=== PATIENT | male | born 1955 | race Caucasian/White ===

== ENCOUNTER → 2017-09-03 | Day surgery (SDC) | payer BC ==
[2017-08-30 14:23] VITALS: BMI 26.6
[~2017-09-03] MED LIST: LACTATED RINGERS 1,000 ML IV SCH; LIDOCAINE 1% 20 ML VIAL (10MG/ML) FOR IV START INTRADERMA PRN; LIDOCAINE 1% INJ 10MG/ML (20 ML MDV) ONE; PROPOFOL 10 MG/ML 20 ML VIAL IV ONE
[2017-09-03 11:24] VITALS: TEMP 98.2
--- NOTE | 2017-09-03 12:29 | P.GSHP ---
History of Present Illness H&P Date: 09/03/17 Chief Complaint: Screening colonoscopy This a 62-year-old male referred from Dr. Beltran. Patient presents today for screening colonoscopy. Past Medical History Past Medical History: Skin Disorder Additional Past Medical History / Comment(s): WOUND LEFT ACHILLES TENDON. (HX OF PICC LINE WITH ANTIBIOTICS)-healed History of Any Multi-Drug Resistant Organisms: None Reported Past Surgical History: Joint Replacement, Orthopedic Surgery Additional Past Surgical History / Comment(s): achilles tendon repair 09/05/2013 , right knee replacement apr 2012, right wrist--excess bone removed 5 years ago , RT ROTATOR CUFF REPAIR APR 2014. Past Anesthesia/Blood Transfusion Reactions: No Reported Reaction Smoking Status: Never smoker - Past Family History Mother Family Medical History: Diabetes Mellitus Father Family Medical History: No Reported History Additional Family Medical History / Comment(s): PARKINSONS Medications and Allergies Home Medications Medication Instructions Recorded Confirmed Type No Known Home Medications [No 08/30/17 08/30/17 History Known Home Medications] Allergies Allergy/AdvReac Type Severity Reaction Status Date / Time No Known Allergies Allergy Verified 08/30/17 14:19 Surgical - Exam Vital Signs Temp Pulse Resp BP Pulse Ox 98.2 F 55 L 16 168/102 98 09/03/17 11:22 09/03/17 11:22 09/03/17 11:22 09/03/17 11:22 09/03/17 11:22 - General well developed, no distress - Eyes PERRL - ENT normal pinna - Neck no masses - Respiratory normal expansion - Cardiovascular Rhythm: regular - Abdomen Abdomen: soft, non tender Assessment and Plan Assessment: We'll perform screening colonoscopy.
--- NOTE | 2017-09-03 12:43 | P.OP ---
Date of Procedure: 09/03/17 Preoperative Diagnosis: Screening colonoscopy Postoperative Diagnosis: External hemorrhoids Severe diverticulosis of sigmoid and left colon Procedure(s) Performed: Colonoscopy Anesthesia: MAC Surgeon: Gage Barry Pathology: none sent Condition: stable Disposition: PACU Description of Procedure: Patient's placed on the endoscopy table lateral position. He received IV sedation. Digital rectal exam was performed which revealed a thrombosed external hemorrhoids. Possible colonoscope was then placed patient anus and passed throughout the colon. The scope was placed into the descending colon. There was extensive diverticular changes. The colonoscope could not navigate through the colon due to the diverticular changes and tortuosity the valve. This point scope was withdrawn. There is extensive diverticula of the descending and sigmoid colon. Scope was then brought back the rectum this appeared normal. Scope was withdrawn for patient. The patient was then scheduled for a barium enema.
[2017-09-03 12:58] VITALS: RESP 18
[2017-09-03 13:09] VITALS: BP 131/81; PULSE 50
--- NOTE | 2017-09-03 15:08 | FL ---
EXAMINATION TYPE: FL barium enema DATE OF EXAM: 09/03/2017 CLINICAL HISTORY: Incomplete colonoscopy, diverticulosis TECHNIQUE: A air contrast barium enema study is performed. COMPARISON: None. FINDINGS: Extractor Plant Operator view of the abdomen shows overall non-obstructive bowel gas pattern.No evidence of a ny mass or polyp, obstructing or constricting lesion throughout the colon. Moderate sigmoid diverticu losis without diverticulitis. Diminutive appendix noted. No evidence for reflux into the small bowel. The terminal ileum was refluxed and appears within normal limits. IMPRESSION: 1. Moderate sigmoid diverticulosis without diverticulitis. 2. No evidence for underlying lesion.
== END | disposition home or self-care (01) ==
LOC: ORWHC2ENDO 10:39
PROVIDERS: ATTEND Surgery
DX: Z12.11 Encounter for screening for malignant neoplasm of colon (principal); K57.30 Diverticulosis of large intestine without perforation or abscess without bleeding; K64.5 Perianal venous thrombosis; Z96.651 Presence of right artificial knee joint; K63.89 Other specified diseases of intestine
CPT/HCPCS: 74270; 45378; J2001; J2704

== ENCOUNTER → 2021-04-19 | Outpatient (CLI) | payer MEDICARE ==
[2021-04-19 12:44] LABS: HGB 14.1 gm/dL (13.0-17.5); MCH 32.3 pg (25.0-35.0); MCHC 33.5 g/dL (31.0-37.0); MCV 96.6 fL (80.0-100.0); Mean Platelet Volume 7.7; Platelet Count 173 k/uL (150-450); RBC 4.35 m/uL (4.30-5.90); RDW 13.3 % (11.5-15.5); WBC 9.1 k/uL (3.8-10.6)
[2021-04-19 12:55] LABS: African American GFR (CKD) >90 (>60 ml/min/1.73 sqM); Anion Gap 5 mmol/L; Blood Urea Nitrogen 20 mg/dL (9-20); Carbon Dioxide 28 mmol/L (22-30); Chloride 105 mmol/L (98-107); Non-African American GFR(CKD) 78 (>60 ml/min/1.73 sqM); Potassium 4.8 mmol/L (3.5-5.1); Sodium 138 mmol/L (137-145)
== END | disposition home or self-care (01) ==
LOC: LABPAT 11:47
PROVIDERS: ATTEND Internal Medicine Interventional Cardiology
DX: Z01.812 Encounter for preprocedural laboratory examination (principal); U07.1 COVID-19; R07.9 Chest pain, unspecified
CPT/HCPCS: 80051; 82565; 84520; 85027; 36415; U0003; C9803

== ENCOUNTER 2021-04-20 06:18 | Inpatient (IN) | payer BC, MEDICARE ==
[2021-04-20] MEDS ORDERED: SODIUM CHLORIDE 0.9% 1,000 ML IV ONE (06:40)
[2021-04-20] MEDS ORDERED: VERAPAMIL 2.5 MG/ML 2 ML AMP ONE (07:16)
[2021-04-20] MEDS ORDERED: LIDOCAINE 1% INJ 10MG/ML (20 ML MDV) ONE (07:16)
[2021-04-20] MEDS ORDERED: HEPARIN SODIUM 1,000 UN/ML (10ML VL) ONE (07:35)
[2021-04-20] MEDS ORDERED: MIDAZOLAM 2 MG/2 ML VIAL IVP ONE (07:46)
[2021-04-20] MEDS ORDERED: LIDOCAINE 1% INJ 10MG/ML (20 ML MDV) SQ ONE (07:47)
[2021-04-20] MEDS: VERAPAMIL SYRINGE (5 MG/10 ML) INTRAARTER ONE ×2 (07:48→08:00)
[2021-04-20] MEDS ORDERED: IOPAMIDOL-370 125ML BTL INJ ONE (07:59)
[2021-04-20] MEDS ORDERED: RX INFO: IV CONTRAST WAS GIVEN 1 EACH MISC MISCELLANE PRN (08:09)
[2021-04-20] MEDS ORDERED: SODIUM CHLORIDE 0.9% 1,000 ML IV SCH (08:15)
--- NOTE | 2021-04-20 09:44 | P.GSCN ---
History of Present Illness Consult date: 04/20/21 Reason for Consult: Triple-vessel coronary artery disease with left main disease Requesting physician: Yosi Lu History of present illness: This is a 65-year-old very fit and active gentleman who follows on an outpatient basis with Dr. Beltran for primary care. He has a previous medical history of hypertension, hyperlipidemia, traumatic left-sided pneumothorax 2 after fall, multiple orthopedic surgeries including left Achilles tendon repair with subsequent MRSA and E. coli infection in 2013, never smoker, and family history of coronary artery disease with several grandparents from myocardial infarction. For the last couple of weeks the patient reports chest discomfort with occasional mild shortness of breath with exertion, most commonly when he is on the treadmill. He reports the symptoms never occur at rest and are relieved after approximately 15-20 minutes of rest. Per his he has also had occasional left arm pain, again only with exertion. For these reasons he presented to [facility] and was seen by Dr. Lu who initially recommended the patient go to the emergency room, however the patient refused and was brought in today for outpatient heart catheterization revealing 80-90% ostial left main disease with triple-vessel severely calcified coronary artery disease. Due to these findings consultation was placed to cardiothoracic surgery for surgical revascularization recommendations. Review of Systems Review of systems was completed and was negative except as noted - Cardiovascular Reports as per HPI, Reports chest pain, Reports dyspnea on exertion Past Medical History Past Medical History: Chest Pain / Angina, Hyperlipidemia, Hypertension Additional Past Medical History / Comment(s): RECENT CHEST PAIN WITH EXERCISE History of Any Multi-Drug Resistant Organisms: MRSA Year Discovered:: 2013 MDRO Source:: LT ANKLE Past Surgical History: Joint Replacement, Orthopedic Surgery Additional Past Surgical History / Comment(s): LT achilles tendon repair 09/05/2013, right knee replacement apr 2012, right wrist--excess bone removed 5 years ago, RT ROTATOR CUFF REPAIR APR 2014., COLONOSOCPY, LT ROTATOR CUFF REPAIR, Past Anesthesia/Blood Transfusion Reactions: No Reported Reaction Past Psychological History: No Psychological Hx Reported Smoking Status: Never smoker Past Alcohol Use History: Rare Past Drug Use History: None Reported - Past Family History Mother Family Medical History: Diabetes Mellitus Additional Family Medical History / Comment(s): Pancreatitis Father Additional Family Medical History / Comment(s): PARKINSONS Medications and Allergies Home Medications Medication Instructions Recorded Confirmed Type Aspirin 81 mg PO DAILY 04/19/21 04/20/21 History Isosorbide Mononitrate [Isosorbide 30 mg PO DAILY 04/19/21 04/20/21 History Mononitrate ER] Rosuvastatin [Crestor] 20 mg PO DAILY 04/19/21 04/20/21 History Allergies Allergy/AdvReac Type Severity Reaction Status Date / Time No Known Allergies Allergy Verified 04/19/21 09:20 Surgical - Exam Vital Signs Temp Pulse Resp BP Pulse Ox 98.2 F 76 16 130/85 97 04/20/21 07:11 04/20/21 07:11 04/20/21 07:11 04/20/21 07:11 04/20/21 07:11 CONSTITUTIONAL: Awake and alert, appears comfortable, cooperative, well- developed, well-nourished, no pain, no acute distress EYES: Pupils equal, round, reactive to light, normal ocular movement ENT: Moist mucous membranes without oral lesions present NECK: No masses, no bruits, trachea midline RESPIRATORY: Lungs sounds clear to auscultation bilaterally. Respirations even, nonlabored. Currently on room air with oxygen saturation 95%. Strong cough. No chest wall deformities. No clubbing or cyanosis present CARDIOVASCULAR: S1, S2 present. Regular rate and rhythm, sinus rhythm on telemetry. Palpable peripheral pulses bilaterally. No edema present. No calf pain or tenderness noted. No significant lower extremity varicosities noted. Left radial Terry's test less than 8 seconds. GASTROINTESTINAL: Abdomen soft, nontender, nondistended without masses or organomegaly noted. There is no rebound or guarding present. Active bowel sounds present 4 quadrants. GENITOURINARY: Deferred INTEGUMENTARY: Skin is warm and dry with evidence of good perfusion. NEUROLOGIC: Cranial nerves II through XII intact, normal coordination, no obvious motor or sensory deficits, speech is normal MUSKULOSKELETAL: Able to move all extremities, strength equal bilaterally, normal posture PSYCHIATRIC: Alert and oriented to person place and time, appropriate affect, intact judgment and insight Results - Imaging Additional studies: Heart catheterization films reviewed Assessment and Plan Assessment: 1. Triple-vessel coronary artery disease with left main disease 2. Chest discomfort, dyspnea on exertion 3. Hypertension 4. Hyperlipidemia, recently started on statin 5. History of traumatic left-sided pneumothorax from a fall 2 with pleural chest tube placement each time 6. Multiple orthopedic surgeries 7. MRSA/E. coli infection to left Achilles heel after surgery 8. Family history of coronary artery disease with grandparents from myocardial infarction in their 70s and 80s Plan: The patient was seen and examined at the bedside in the extended stay unit with his present. The case was discussed in detail with Dr. Dunne. The usual perioperative course of coronary artery bypass surgery was discussed, all risks and benefits were reviewed, all questions were answered. The patient does consent to surgery. Preoperative testing was initiated, once completed we will calculate STS risk score and discuss with the patient and his . Recommend continuing aspirin, statin, beta lelia therapy. Incentive spirometry ordered and should be encouraged. Consultation was placed to pulmonology for preop clearance. Medical management per primary care service. More recommendations to follow. Thank you Dr. Lu for this consult. We look forward to working with you in the care of your patient. Time with Patient: Greater than 30
--- NOTE | 2021-04-20 10:09 | CT ---
EXAMINATION TYPE: CT chest wo con DATE OF EXAM: 04/20/2021 COMPARISON: None HISTORY: Eval aorta for clampability CT DLP: 563 mGycm, Automated exposure control for dose reduction was used. CONTRAST: Performed injected with mL of . TECHNIQUE: Axial images were obtained at 5 mm thick sections. Reconstructed images are reviewed on GI Track computer in the coronal plane. FINDINGS: Portion of the thyroid visualized is normal. Minimal streak opacities in the posterior lateral right lung base likely on the basis of atelectasis. No enlarged mediastinal or hilar adenopathy is evident. Scattered nonenlarged shotty lymphadenopath y is present. Dense coronary artery calcification is evident. The ascending aorta diameter at the level of the main pulmonary artery is 3.7 cm. The main pulmonary artery diameter at the bifurcation is 3.0 cm. Minimal aortic arch vascular calcification is present near the aortopulmonic window and some minimal within the descending thoracic aorta. No aneurysmal di latation is evident. No obvious dissection on this noncontrast study is evident Limited CT sections are obtained through the upper abdomen. Small hiatal hernia may be present. Upper abdomen is unremarkable IMPRESSIONS: 1. Mild streak atelectasis right lung base.
[2021-04-20 10:19] LABS: Appearance,Urine Clear (Clear); Bilirubin,Urine Negative (Negative); Blood,Urine Negative (Negative); Color,Urine Light Yellow; Glucose,Urine (UA) Negative (Negative); Ketones,Urine Negative (Negative); Leukocyte Esterase,Urine Negative (Negative); Nitrite,Urine Negative (Negative); Protein,Urine Negative (Negative); Specific Gravity,Urine 1.023 (1.001-1.035); Urobilinogen,Urine <2.0 mg/dL (<2.0)
[2021-04-20] MEDS: METOPROLOL SUCCINATE (ER) 25 MG TAB.ER.24H PO SCH (11:47)
[2021-04-20] MEDS: ASPIRIN 81 MG PO SCH (11:52)
[2021-04-20] MEDS: ATORVASTATIN 40 MG TAB PO SCH (11:52)
[2021-04-20] MEDS: ISOSORBIDE MONONITRATE ER 30 MG TAB.ER.24H PO SCH (11:53)
--- NOTE | 2021-04-20 12:56 | XR ---
EXAMINATION TYPE: XR chest 2V DATE OF EXAM: 04/20/2021 COMPARISON: CT same day HISTORY: 65-year-old male preoperative cardiac surgery TECHNIQUE: Frontal and lateral views FINDINGS: Heart upper limits of normal in size. Tortuosity thoracic aorta. Fine interstitial changes in the mid and lower lungs. Old healed left-sided rib fracture deformities. No consolidation or pleural effusio n. IMPRESSION: Some chronic appearing interstitial changes with scarring or atelectasis in the lower lungs. No acute process seen. Old left-sided rib fracture deformities.
--- NOTE | 2021-04-20 13:14 | CC ---
CARDIAC CATHETERIZATION REPORT DATE OF SERVICE: April 20, 2021. PERFORMING PHYSICIAN: Yosi Lu MD. PROCEDURE PERFORMED: Selective right and left coronary angiogram. INDICATION: This is a 65-year-old gentleman with lower extremities peripheral arterial disease as well as hypertension and dyslipidemia who was seen in the office recently after 2 years where he was experiencing intermittent episodes of chest discomfort concerning for angina. In light of that and in light of multiple risk factors, as well as the nature of the symptoms, I decided to pursue with coronary angiogram. APPROACH: Right radial artery. COMPLICATIONS: None. LEVEL OF SEDATION: Moderate, with sedation length of 15 minutes. PROCEDURE DESCRIPTION: After obtaining informed consent, the patient was brought to the cardiac labor arbitrator. The right radial artery was cannulated using micropuncture technique under ultrasound guidance, the micropuncture wire passed easily. Then I placed a 6-Hungarian sheath at the right radial artery. I gave the patient 2 mg of verapamil IA and 6000 units of heparin IV. Selective right and left coronary angiogram performed with JR4 and JL3.5 catheters. Left heart catheterization was not performed. SELECTIVE CORONARY ANGIOGRAM: 1. The right coronary artery is a large-caliber vessel. It is a dominant vessel. The RCA is extremely calcified. The RCA is diffusely diseased. The proximal RCA has a lesion appeared to be in the range of 70% to 80%. The mid RCA has mild to moderate disease and the RCA distally bifurcates into PDA and PLV branches. The PDA and PLV branches both are diseased with significant lesions. 2. The left main is extremely calcified. The left main has a critical lesion by the ostium with dampening in the waveform and pressure ventriculization bone engaging the left main using 5-Hungarian system. The lesion of the left main appeared to be in the range of 80% to 90%. The left main bifurcates into LCX and LAD. 3. The LCX is a large-caliber vessel. It is a nondominant vessel. The proximal left circumflex after the bifurcation of the left main has a critical lesion appeared to be in the range of 80% to 90%. The left circumflex gives rise to an OM branch which is a moderate caliber vessel with mild disease only. The circ continues after that as a small to medium caliber vessel in the AV groove. 4. The LAD: The proximal LAD has a lesion appeared to be in the range of 70% to 80%. This is by the bifurcation of a large diagonal branch which appeared to have an ostial lesion in the range of 50%. The mid LAD has mild disease only and the LAD distally by the apex has a lesion appeared to be in the range of 70% to 80%. HEMODYNAMICS: The aortic valve was not crossed and we did not measure LVEDP. CONCLUSION: 1. Intermittent episodes of chest discomfort concerning for angina in this 65-year-old gentleman with known lower extremities peripheral arterial disease as well as hypertension and dyslipidemia. 2. Extremely calcified right and left coronary systems. 3. Critical disease involving the right coronary artery. 4. Critical disease involving the left main coronary artery. POSTPROCEDURE MANAGEMENT: 1. Given the above anatomy and the nature of the disease which is diffuse, I felt the patient will benefit from coronary artery bypass grafting. 2. The patient is going to stay in the hospital until he gets revascularized. 3. Further recommendations to follow. RUDOLPH / PETE: [id number] /
[2021-04-20 14:12] LABS: Basophils % (A) 1 %; Eosinophils # (A) 0.2 k/uL (0-0.7); Eosinophils % (A) 3 %; HGB 14.1 gm/dL (13.0-17.5); Lymphocytes # (A) 1.6 k/uL (1.0-4.8); Lymphocytes % (A) 24 %; MCH 31.2 pg (25.0-35.0); MCHC 32.9 g/dL (31.0-37.0); Monocytes # (A) 0.4 k/uL (0-1.0); Monocytes % (A) 6 %; Neutrophils # (A) 4.3 k/uL (1.3-7.7); Neutrophils % (A) 64 %; Platelet Count 167 k/uL (150-450); RBC 4.53 m/uL (4.30-5.90); RDW 12.8 % (11.5-15.5); WBC 6.8 k/uL (3.8-10.6)
--- NOTE | 2021-04-20 14:18 | US ---
EXAMINATION TYPE: US carotid duplex BILAT DATE OF EXAM: 04/20/2021 COMPARISON: NONE CLINICAL HISTORY: 65-year-old male Pre-Op Cardiac Surgery. TECHNIQUE: Carotid duplex ultrasound examination. Indirect Doppler criteria was utilized. FINDINGS: EXAM MEASUREMENTS: RIGHT: Peak Systolic Velocity (PSV) cm/sec ----- Right CCA: 100 ----- Right ICA: 160 ----- Right ECA: 131 ICA/CCA ratio: 1.6 RIGHT: End Diastole cm/sec ----- Right CCA: 20.2 ----- Right ICA: 31.5 ----- Right ECA: 15.7 LEFT: Peak Systolic Velocity (PSV) cm/sec ----- Left CCA: 93.9 ----- Left ICA: 98.6 ----- Left ECA: 146 ICA/CCA ratio: 1.08 LEFT: End Diastole cm/sec ----- Left CCA: 19.4 ----- Left ICA: 30.7 ----- Left ECA: 14.7 VERTEBRALS (direction of flow): Right Vertebral: Antegrade Left Vertebral: Antegrade Rhythm: Normal [id number]-up-[id number] atherosclerotic change at the right greater the left bifurcations. IMPRESSION: Slightly elevated peak systolic velocity proximal right ICA may represent a moderate (50-69%) right I CA stenosis. Criteria for Assigning % of Stenosis / Diameter reduction (Estimation based on the indirect measurements of the internal carotid artery velocities (ICA PSV). 1. Normal (no stenosis)=ICA PSV < 125 cm/s: ratio < 2.0: ICA EDV<40 cm/s. 2. Less than 50% stenosis=ICA PSV < 125 cm/s: ratio < 2.0: ICA EDV<40 cm/s. 3. 50 to 69% stenosis=ICA PSV of 125 to 230 cm/s: ration 2.0 ? 4.0: ICA EDV 40-100 cm/s. 4. Greater than 70% stenosis to near occlusion= ICA PSV > 230 cm/s: ratio > 4.0: ICA EDV > 100 cm/s. 5. Near occlusion= ICA PSV velocities may be low or undetectable: variable ratio and ICA EDV. 6. Total occlusion=unable to detect flow.
[2021-04-20 14:31] LABS: ALT 31 U/L (4-49); AST 55 U/L (17-59); African American GFR (CKD) >90 (>60 ml/min/1.73 sqM); Albumin 3.8 g/dL (3.5-5.0); Alkaline Phosphatase 50 U/L (38-126); Anion Gap 9 mmol/L; Blood Urea Nitrogen 15 mg/dL (9-20); Calcium 9.1 mg/dL (8.4-10.2); Carbon Dioxide 24 mmol/L (22-30); Chloride 106 mmol/L (98-107); Glucose 107 mg/dL (74-99); Non-African American GFR(CKD) 86 (>60 ml/min/1.73 sqM); Potassium 4.2 mmol/L (3.5-5.1); Sodium 139 mmol/L (137-145); Total Bilirubin 0.9 mg/dL (0.2-1.3); Total Protein 6.7 g/dL (6.3-8.2)
[2021-04-20 14:33] LABS: INR 1.1 (<1.2); Partial Thromboplastin Time 24.5 sec (22.0-30.0); Prothrombin Time 11.1 sec (9.0-12.0)
--- NOTE | 2021-04-20 17:36 | P.CNPUL ---
History of Present Illness Consult date: 04/20/21 Requesting physician: Cachorro Mckenzie Reason for consult: other (CABG, ICU/ventilator managed) Chief complaint: Intermittent chest discomfort History of present illness: This is a very pleasant 65-year-old male patient with a known history of lower extremity peripheral arterial disease, hypertension, hyperlipidemia who been having intermittent episodes of chest discomfort. He was brought in electively today for cardiac catheterization via the right radial approach with Dr. Lu. He was found to have extremely calcified right and left coronary systems. Critical disease involving the RCA. Critical disease involving the left main artery. He is recommended coronary artery bypass grafting. Computed tomography scan of the chest revealed mild streak atelectasis of the right lung base. The patient is a lifelong nonsmoker. No history of pulmonary disease. He is seen in consultation on the selective care unit. He is maintaining O2 saturations in the 90s on room air. No IV fluids. Carotid Dopplers revealed a slightly elevated peak systolic velocity in the right ICA presenting a moderate 50-70% stenosis. X-ray revealed some chronic appearing interstitial changes with scarring or atelectasis of the lower lobes. No acute pulmonary process. Old left-sided rib fracture deformities noted. White count 6.8. Hemoglobin 14.1. Sodium 139. Potassium 4.2. Creatinine 0.93. Glucose 107. Coronavirus by PCR not detected on 04/19/2021. Review of Systems REVIEW OF SYSTEMS: CONSTITUTIONAL: Denies any recent significant weight loss or weight gain. EYES: Denies change in vision. EARS, NOSE, MOUTH, THROAT: Denies headaches, denies sore throat. CARDIOVASCULAR: Positive for intermittent chest pain, no palpitations or syncopal episodes. RESPIRATORY: Denies shortness of breath, cough, congestion or hemoptysis. GASTROINTESTINAL: Denies change in appetite, denies abdominal pain GENITOURINARY: Denies hematuria, denies infections. MUSKULOSKELETAL: Denies pain, denies swelling. INTEGUMENTARY: Denies rash, denies eczema. NEUROLOGICAL: Denies recent memory loss, no recent seizure activity. PSYCHIATRIC: Denies anxiety, denies depression. HEMATOLOGIC/LYMPHATIC: Denies anemia, denies enlarged lymph nodes. Past Medical History Past Medical History: Chest Pain / Angina, Hyperlipidemia, Hypertension Additional Past Medical History / Comment(s): RECENT CHEST PAIN WITH EXERCISE History of Any Multi-Drug Resistant Organisms: MRSA Date of last positivie culture/infection: 2013 MDRO Source:: LT ANKLE Past Surgical History: Joint Replacement, Orthopedic Surgery Additional Past Surgical History / Comment(s): LT achilles tendon repair 09/05/2013, right knee replacement apr 2012, right wrist--excess bone removed 5 years ago, RT ROTATOR CUFF REPAIR APR 2014., COLONOSOCPY, LT ROTATOR CUFF REPAIR, Past Anesthesia/Blood Transfusion Reactions: No Reported Reaction Past Psychological History: No Psychological Hx Reported Smoking Status: Never smoker Past Alcohol Use History: Rare Past Drug Use History: None Reported - Past Family History Mother Family Medical History: Diabetes Mellitus Additional Family Medical History / Comment(s): Pancreatitis Father Family Medical History: No Reported History Additional Family Medical History / Comment(s): PARKINSONS Medications and Allergies Home Medications Medication Instructions Recorded Confirmed Type Aspirin 81 mg PO DAILY 04/19/21 04/20/21 History Isosorbide Mononitrate [Isosorbide 30 mg PO DAILY 04/19/21 04/20/21 History Mononitrate ER] Rosuvastatin [Crestor] 20 mg PO DAILY 04/19/21 04/20/21 History Allergies Allergy/AdvReac Type Severity Reaction Status Date / Time No Known Allergies Allergy Verified 04/19/21 09:20 Physical Exam Vitals: Vital Signs Temp Pulse Resp BP BP Pulse Ox 04/20/21 13:00 62 16 148/91 04/20/21 11:54 58 L 14 123/77 04/20/21 10:54 54 L 16 117/64 04/20/21 09:54 56 L 16 128/74 04/20/21 09:13 76 16 127/76 96 04/20/21 08:58 58 L 14 145/81 95 04/20/21 08:28 60 16 132/63 95 04/20/21 08:13 60 16 130/62 94 L 04/20/21 07:11 98.2 F 76 16 130/85 172/99 97 Intake and Output 04/20/21 04/20/21 04/20/21 06:59 14:59 22:59 Intake Total 125 50 Output Total 300 Balance 125 50 -300 Intake: IV 125 50 Output: Urine 300 Other: # Voids 1 Weight 83.4 kg GENERAL EXAM: Alert, very pleasant 65-year-old male patient, on room air, co mfortable in no apparent distress. HEAD: Normocephalic. EYES: Normal reaction of pupils, equal size. NOSE: Clear with pink turbinates. THROAT: No erythema or exudates. NECK: No masses, no JVD. CHEST: No chest wall deformity. LUNGS: Equal air entry with no crackles, wheeze, rhonchi or dullness. CVS: S1 and S2 normal with no audible murmur, regular rhythm. ABDOMEN: No hepatosplenomegaly, normal bowel sounds, no guarding or rigidity. SPINE: No scoliosis or deformity SKIN: No rashes CENTRAL NERVOUS SYSTEM: No focal deficits, tone is normal in all 4 extremities. EXTREMITIES: Radial pressure dressing intact. There is no peripheral edema. No clubbing, no cyanosis. Peripheral pulses are intact. Results - Laboratory Findings CBC and BMP: 04/20/21 14:01 04/20/21 14:01 PT/INR, D-dimer PT 11.1 sec (9.0-12.0) 04/20/21 14:01 INR 1.1 (<1.2) 04/20/21 14:01 Abnormal lab findings: Abnormal Labs 04/20/21 14:01 Glucose 107 H - Diagnostic Findings Chest x-ray: image reviewed CT scan - chest: image reviewed Assessment and Plan Assessment: 1 Chest pain in a patient found to have severe coronary artery disease with right and left heavily calcified system. Critical disease involving the RCA with proximal lesion of 70-80%. Critical lesion involving the ostium of the left main of 80-90%. The plan is for coronary revascularization on 04/22/2021 2 Right internal carotid stenosis of 50-70% 3 History of peripheral arterial disease 4 Hypertension 5 Hyperlipidemia 6 Lifelong nonsmoker. FEV1 value 2.7 L which is 88% of predicted Plan: The patient was seen and evaluated CAT scan, chest x-ray and labs reviewed Lifelong nonsmoker, stable from the pulmonary standpoint Educated regarding the use of the incentive spirometer We will plan for early extubation protocol if tolerated We will continue to follow and make further recommendations based on his clinical status I, the cosigning physician, performed a history & physical examination of the patient. Lungs sounds are clear. Maintaining good O2 saturations in the 90s on room air. I discussed the assessment and plan of care with my nurse practitioner, Marielos Santoyo. I attest to the above consultation as dictated by her. Time with Patient: Greater than 30
[2021-04-20 20:58] LABS: Hepatitis A Antibody IgM Nonreactive (Nonreactive); Hepatitis B Core IgM Nonreactive (Nonreactive); Hepatitis B Surface Antigen Nonreactive (Nonreactive); Hepatitis C IgG Antibody Nonreactive (Nonreactive)
[2021-04-21 00:37] LABS: Chol/HDL Ratio 2.78 Ratio; LDL Cholesterol,Calculated 79.6 mg/dL (0.0-131.0)
--- NOTE | 2021-04-21 08:11 | ECHOF ---
Referral Reason:preop cabg; eval LV, valves MEASUREMENTS -------- HEIGHT: 175.3 cm WEIGHT: 83.0 kg BP: IVSd: 1.3 cm (0.6 - 1.1) LVIDd: 3.9 cm (3.9 - 5.3) LVPWd: 1.4 cm (0.6 - 1.1) IVSs: 2.0 cm LVIDs: 2.1 cm LVPWs: 1.8 cm LAESV Index (A-L): 18.77 ml/m Ao Diam: 3.6 cm (2.0 - 3.7) AV Cusp: 1.6 cm (1.5 - 2.6) LA Diam: 3.0 cm (2.7 - 3.8) MV EXCURSION: 11.800 mm (> 18.000) MV EF SLOPE: 45 mm/s (70 - 150) EPSS: 1.0 cm MV E Russ: 0.67 m/s MV DecT: 267 ms MV A Russ: 0.84 m/s MV E/A Ratio: 0.80 RAP: 15.00 mmHg RVSP: 22.23 mmHg FINDINGS -------- This was a technically good study. The left ventricular size is normal. There is mild concentric left ventricular hypertrophy. Overa ll left ventricular systolic function is low-normal with, an EF between 50 - 55 %. The diastolic fi lling pattern is normal for the age of the patient 9.96. The right ventricle is normal in size. The left atrial size is normal. Normal LA size by volume 22+/-6 ml/m2. The right atrial size is normal. The aortic valve is trileaflet and appears structurally normal. The mitral valve is normal. There is trace mitral regurgitation. The tricuspid valve appears structurally normal. Trace tricuspid regurgitation present. Right thomas tricular systolic pressure is normal at < 35 mmHg. There is no pulmonic regurgitation present. The aortic root size is normal. The inferior vena cava is mildly dilated. There is no pericardial effusion. CONCLUSIONS -------- 1. The left ventricular size is normal. 2. There is mild concentric left ventricular hypertrophy. 3. Overall left ventricular systolic function is low-normal with, an EF between 50 - 55 %. 4. The diastolic filling pattern is normal for the age of the patient 9.96 5. There is trace mitral regurgitation. 6. Trace tricuspid regurgitation present. 7. The inferior vena cava is mildly dilated. 8. There is no pericardial effusion. MACHINE III COREMAKER: Donna Cuellar RDCS
--- NOTE | 2021-04-21 08:36 | P.PN ---
Subjective Progress Note Date: 04/21/21 Principal diagnosis: Triple-vessel coronary artery disease with left main disease, chest discomfort, dyspnea on exertion. Previous medical history of hyperlipidemia, traumatic lef t-sided pneumothorax from a fall 2 with pleural chest tube placement each time, multiple orthopedic surgeries, MRSA/E. coli infection to left Achilles heel after surgery, family history of coronary artery disease with grandparents from myocardial infarction in their 70s and 80s. Vaccinated and boostered against covid The patient was seen and examined this morning on the cardiac stepdown unit. He was up ambulating in his room without difficulty. Denies any chest pain or shortness of breath. Preoperative testing has been completed, plan is for surgery tomorrow. No new concerns at this time Objective - Vital Signs Vital signs: Vital Signs Temp 98.1 F 04/21/21 04:00 Pulse 57 L 04/21/21 04:00 Resp 18 04/21/21 04:00 BP 125/69 04/21/21 04:00 Pulse Ox 96 04/21/21 04:00 Intake & Output 04/20/21 04/21/21 04/21/21 18:59 06:59 18:59 Intake Total 50 10 Output Total 300 Balance -250 10 Weight 83.4 kg Intake: IV 50 10 Invasive Line 1 10 Output: Urine 300 Other: Voiding Method Toilet # Voids 1 2 - Exam CONSTITUTIONAL: Appears comfortable, cooperative, no acute distress RESPIRATORY: Lungs sounds clear bilaterally. Respirations even, nonlabored. Currently on room air with oxygen saturation 96%. Able to achieve 3500 mL on incentive spirometry. Strong cough. CARDIOVASCULAR: S1, S2 present. Regular rate and rhythm, sinus rhythm on telemetry. Palpable peripheral pulses bilaterally. No edema present. No calf pain or tenderness noted. GASTROINTESTINAL: Abdomen soft, nontender, nondistended. Active bowel sounds present 4 quadrants. Tolerating diet. GENITOURINARY: Continues to void INTEGUMENTARY: Skin is warm and dry with evidence of good perfusion. NEUROLOGIC: Cranial nerves II through XII intact MUSKULOSKELETAL: Able to move all extremities, strength equal bilaterally, gait normal PSYCHIATRIC: Alert and oriented to person place and time, appropriate affect, intact judgment and insight - Allied health notes Allied health notes reviewed: nursing - Labs CBC & Chem 7: 04/20/21 14:01 04/20/21 14:01 Labs: Abnormal Lab Results - Last 24 Hours (Table) 04/20/21 Range/Units 14:01 Glucose 107 H (74-99) mg/dL Microbiology - Last 24 Hours (Table) 04/20/21 14:34 Nasal Screen MRSA/MSSA - Preliminary Nasal Swab Assessment and Plan Assessment: 1. Triple-vessel coronary artery disease with left main disease 2. Chest discomfort, dyspnea on exertion 3. Hyperlipidemia, recently started on statin 4. History of traumatic left-sided pneumothorax from a fall 2 with pleural chest tube placement each time 5. Multiple orthopedic surgeries 6. MRSA/E. coli infection to left Achilles heel after surgery 7. Family history of coronary artery disease with grandparents from myocardial infarction in their 70s and 80s 8. Vaccinated and boostered against Covid Plan: 1. Continue aspirin, statin, beta lelia therapy 2. Encourage incentive spirometry use 3. Ambulate as tolerated 4. Our plan is for myocardial revascularization with left internal mammary artery, endoscopic vein harvest, possible left radial artery harvest and ligation of left atrial appendage by Dr. Mckenzie tomorrow 04/22/21 5. NPO after midnight 6. Continue preoperative teaching 7. Medical management per primary care service 8. More recommendations to follow Time with Patient: Greater than 30
[2021-04-21] MEDS: ISOSORBIDE MONONITRATE ER 30 MG TAB.ER.24H PO SCH (08:47)
[2021-04-21] MEDS: METOPROLOL SUCCINATE (ER) 25 MG TAB.ER.24H PO SCH (08:47)
[2021-04-21] MEDS: ASPIRIN 81 MG PO SCH (08:47)
[2021-04-21] MEDS: ATORVASTATIN 40 MG TAB PO SCH (08:47)
[2021-04-21 08:55] LABS: HCT 43.9 % (39.0-53.0); HGB 15.2 gm/dL (13.0-17.5); MCH 33.5 pg (25.0-35.0); MCHC 34.6 g/dL (31.0-37.0); MCV 97.1 fL (80.0-100.0); Mean Platelet Volume 7.7; Platelet Count 193 k/uL (150-450); RBC 4.52 m/uL (4.30-5.90); RDW 13.6 % (11.5-15.5); WBC 6.9 k/uL (3.8-10.6)
[2021-04-21 09:03] LABS: Calcium 9.9 mg/dL (8.4-10.2); Potassium 4.2 mmol/L (3.5-5.1)
[2021-04-21] MEDS: MUPIROCIN 2% OINT 22 GM TUBE NASAL SCH ×2 (12:28→21:34)
--- NOTE | 2021-04-21 12:34 | P.PN ---
Subjective Progress Note Date: 04/21/21 Principal diagnosis: Coronary artery disease. This is a very pleasant 65-year-old male patient with a known history of lower extremity peripheral arterial disease, hypertension, hyperlipidemia who been having intermittent episodes of chest discomfort. He was brought in electively today for cardiac catheterization via the right radial approach with Dr. Lu. He was found to have extremely calcified right and left coronary systems. Critical disease involving the RCA. Critical disease involving the left main artery. He is recommended coronary artery bypass grafting. Computed tomography scan of the chest revealed mild streak atelectasis of the right lung base. The patient is a lifelong nonsmoker. No history of pulmonary disease. He is seen in consultation on the selective care unit. He is maintaining O2 saturations in the 90s on room air. No IV fluids. Carotid Dopplers revealed a slightly elevated peak systolic velocity in the right ICA presenting a moderate 50-70% stenosis. X-ray revealed some chronic appearing interstitial changes with scarring or atelectasis of the lower lobes. No acute pulmonary process. Old left-sided rib fracture deformities noted. White count 6.8. Hemoglobin 14.1. Sodium 139. Potassium 4.2. Creatinine 0.93. Glucose 107. Coronavirus by PCR not detected on 04/19/2021. Progress note dated 04/21/2021. 65-year-old male, seen yesterday in consultation. The patient is scheduled for bypass grafting tomorrow. Clinically he is doing well. I explained our role in the process including extubating him from mechanical ventilation as soon as possible after the surgery, and also, following along throughout his hospitali zation, to make sure, that his lungs remain healthy. Today, he is seen. He is on room air. Is not receiving any IV fluids. He is a lifelong nonsmoker, and has no history of any lung disease. Objective - Vital Signs Vital signs: Vital Signs Temp 98 F 04/21/21 11:33 Pulse 57 L 04/21/21 11:33 Resp 20 04/21/21 11:33 BP 122/80 04/21/21 11:33 Pulse Ox 99 04/21/21 11:33 Intake & Output 04/20/21 04/21/21 04/21/21 18:59 06:59 18:59 Intake Total 50 10 180 Output Total 300 Balance -250 10 180 Weight 83.4 kg Intake: IV 50 10 Invasive Line 1 10 Oral 180 Output: Urine 300 Other: Voiding Method Toilet # Voids 1 2 1 - Exam No acute distress, oriented 3. Not on any supplemental oxygen. HEENT examination is grossly unremarkable. Mucous membranes are moist. No oral lesions. Neck supple. Full range of motion. No adenopathy thyromegaly or neck vein distention. Cardiovascular examination reveals regular rhythm rate. S1-S2 normal. No S3 or S4. No discernible murmur noted. Heart rate 57 bpm. Lungs reveal clear breath sounds. Breath sounds are equal bilaterally. No adventitious lung sounds including wheezes rhonchi or crackles. Abdomen soft bowel sounds are heard. No masses or tenderness. Extremities are intact. No cyanosis clubbing or edema. Skin is without rash or lesion. Neurologic examination is brief but nonfocal. - Labs CBC & Chem 7: 04/21/21 08:24 04/21/21 08:24 Labs: Abnormal Lab Results - Last 24 Hours (Table) 04/20/21 04/21/21 Range/Units 14:01 08:24 Glucose 107 H (74-99) mg/dL Crossmatch See Detail Microbiology - Last 24 Hours (Table) 04/20/21 14:34 Nasal Screen MRSA/MSSA - Preliminary Nasal Swab Assessment and Plan Assessment: 1 Chest pain in a patient found to have severe coronary artery disease with right and left heavily calcified system. Critical disease involving the RCA with proximal lesion of 70-80%. Critical lesion involving the ostium of the left main of 80-90%. The plan is for coronary revascularization on 04/22/2021. 2 Right internal carotid stenosis of 50-70%. 3 History of peripheral arterial disease. 4 Hypertension. 5 Hyperlipidemia. 6 Lifelong nonsmoker. FEV1 value 2.7 L which is 88% of predicted. Plan: Plan dated 04/21/2021. The patient is seen and evaluated yesterday in consultation, and from our st [facility], we'll do well with surgery. Lung function are excellent. He is at no increased operative risk. He is a lifelong nonsmoker. X-ray, labs, CAT scans, and so forth are all reviewed. The patient is educated about the importance of incentive spirometry. In addition, we explained the role of the pulmonary and critical care physician, for open heart patient's. Time with Patient: Less than 30
--- NOTE | 2021-04-21 13:12 | P.PN ---
Subjective Progress Note Date: 04/21/21 HISTORY OF PRESENT ILLNESS: This is a 65-year-old male who follows in the office with Dr. Lu. Patient has been having intermittent episodes of chest discomfort. He underwent cardiac catheterization yesterday revealing extremity calcified right and left coronary systems. Critical disease involving right coronary artery. Critical disease involving the left main coronary artery. The patient was evaluated by cardiothoracic surgery and is tentatively scheduled for open heart surgery tomorrow. The patient was examined this morning. He is sitting up in the chair. He denies chest pain or pressure. Denies shortness of breath. Vital signs are stable. Echocardiogram completed revealing ejection fraction 50-55%, trace mitral regurgitation, and trace tricuspid regurgitation. PHYSICAL EXAM: VITAL SIGNS: Reviewed. GENERAL: Well-developed in no acute distress. NECK: Supple. No JVD or thyromegaly LUNGS: Respirations even and unlabored. Lungs essentially clear to auscultation bilaterally. HEART: Regular rate and rhythm. S1 and S2 heard. EXTREMITIES: Normal range of motion. No clubbing or cyanosis. Peripheral pulses intact. No lower extremity edema. Right radial cath site with pulse present. ASSESSMENT: Intermittent episodes of chest discomfort Triple vessel coronary artery disease with left main disease Right carotid stenosis Peripheral arterial disease Hyperlipidemia PLAN: Continue current cardiac medications Continue telemetry monitoring Patient is scheduled for open heart surgery tomorrow Further recommendations pending patient's course Nurse practitioner note has been reviewed by physician. Signing provider agrees with the documented findings, assessment, and plan of care. Objective - Vital Signs Vital signs: Vital Signs Temp 98 F 04/21/21 11:33 Pulse 57 L 04/21/21 11:33 Resp 20 04/21/21 11:33 BP 122/80 04/21/21 11:33 Pulse Ox 99 04/21/21 11:33 Intake & Output 04/20/21 04/21/21 04/21/21 18:59 06:59 18:59 Intake Total 50 10 180 Output Total 300 Balance -250 10 180 Weight 83.4 kg Intake: IV 50 10 Invasive Line 1 10 Oral 180 Output: Urine 300 Other: Voiding Method Toilet # Voids 1 2 1 - Labs CBC & Chem 7: 04/21/21 08:24 04/21/21 08:24 Labs: Abnormal Lab Results - Last 24 Hours (Table) 04/20/21 04/21/21 Range/Units 14:01 08:24 Glucose 107 H (74-99) mg/dL Crossmatch See Detail Microbiology - Last 24 Hours (Table) 04/20/21 14:34 Nasal Screen MRSA/MSSA - Preliminary Nasal Swab
[2021-04-22] MEDS ORDERED: PROTAMINE SULFATE 250 MG in EMPTY BAG 1 BAG IV ONE (05:00)
[2021-04-22] MEDS ORDERED: ALBUMIN HUMAN 25% 50 ML in EMPTY BAG 1 BAG IVPB ONE (05:00)
[2021-04-22] MEDS ORDERED: ATORVASTATIN 10 MG TAB PO ONE (05:00)
[2021-04-22] MEDS ORDERED: PROTAMINE SULFATE 10 MG/ML 25 ML VIAL IV ONE ×2 (05:00→07:50)
[2021-04-22] MEDS ORDERED: CHLORHEXIDINE GLUCONATE 15 ML CUP MUCOUS MEM ONE (05:00)
[2021-04-22] MEDS ORDERED: INSULIN REGULAR 100 UNIT in SODIUM CHLORIDE 0.9% 100 ML IV SCH ×2 (05:00→17:00)
[2021-04-22] MEDS ORDERED: PAPAVERINE 360 MG in SODIUM CHLORIDE 0.9% 90 ML IV ONE (05:00)
[2021-04-22] MEDS ORDERED: MANNITOL 25% 12.5 GM/50 ML VIAL IV ONE ×2 (05:00)
[2021-04-22] MEDS ORDERED: ceFAZolin 1,000 MG in SODIUM CHLORIDE 0.9% IRRIGATIO 1,000 ML IRRIGATION ONE (05:00)
[2021-04-22] MEDS ORDERED: ELECTROLYTE-A SOLUTION 1,000 ML with POTASSIUM CHLORIDE 40 MEQ, MAGNESIUM SULFATE 16 ME... IV SCH ×5 (05:00)
[2021-04-22] MEDS ORDERED: NITROGLYCERIN-D5W PMX 50 MG in DEXTROSE/WATER 1 250ML.BAG IV SCH ×2 (05:00→16:24)
[2021-04-22] MEDS ORDERED: ASPIRIN 325 MG TAB PO ONE (05:00)
[2021-04-22] MEDS ORDERED: SODIUM CHLORIDE 0.9% 1,000 ML IV SCH (05:00)
[2021-04-22] MEDS ORDERED: HEPARIN SODIUM 1,000 UN/ML (10ML VL) IV ONE (05:00)
[2021-04-22] MEDS ORDERED: HEPARIN SODIUM,PORCINE 5,000 UNIT in SODIUM CHLORIDE 0.9% 500 ML 500 ML IV ONE (05:00)
[2021-04-22] MEDS ORDERED: NITROGLYCERIN-D5W PMX 25 MG/250 ML BTL IV ONE (05:00)
[2021-04-22] MEDS ORDERED: SODIUM BICARB 8.4% 50 ML SYR (1 MEQ/ML) IV ONE (05:00)
[2021-04-22] MEDS ORDERED: PHENYLEPHRINE 10 MG/ML VIAL IV ONE (05:00)
[2021-04-22] MEDS ORDERED: MAGNESIUM SULFATE 16.24 MEQ in EMPTY SYRINGE 1 SYR IV ONE (05:00)
[2021-04-22] MEDS ORDERED: CALCIUM CHLORIDE 100 MG/ML 10 ML SYRINGE IVP ONE (05:00)
[2021-04-22] MEDS ORDERED: ELECTROLYTE-A SOLUTION 1,000 ML with POTASSIUM CHLORIDE 100 MEQ, MAGNESIUM SULFATE 16 M... IV SCH ×5 (05:00)
[2021-04-22] MEDS ORDERED: TRANEXAMIC ACID 2,000 MG in SODIUM CHLORIDE 0.9% 80 ML IV ONE (05:00)
[2021-04-22] MEDS ORDERED: CLEVIDIPINE BUTYRATE 25 MG in EMPTY BAG 1 BAG IV SCH ×2 (05:00→16:24)
[2021-04-22] MEDS ORDERED: DILTIAZEM 125 MG in SODIUM CHLORIDE 0.9% 100 ML IV SCH (05:00)
[2021-04-22] MEDS ORDERED: NOREPINEPHRINE 4 MG in SODIUM CHLORIDE 0.9% 250 ML IV SCH (05:00)
[2021-04-22] MEDS ORDERED: METOPROLOL TARTRATE 12.5 MG TAB PO ONE (05:00)
[2021-04-22] MEDS ORDERED: ALBUMIN HUMAN 5% 500 ML in EMPTY BAG 1 BAG IVPB ONE ×6 (05:00)
[2021-04-22] MEDS ORDERED: PHENYLEPHRINE 40 MG in SODIUM CHLORIDE 0.9% 250 ML IV ONE (05:00)
[2021-04-22] MEDS: ASPIRIN 81 MG PO SCH (05:55)
[2021-04-22] MEDS: ATORVASTATIN 40 MG TAB PO SCH (05:55)
[2021-04-22 06:25] LABS: Glucose,Whole Blood 93 mg/dL (75-99)
[2021-04-22] MEDS ORDERED: LACTATED RINGERS 1,000 ML IV ONE (06:29)
[2021-04-22] MEDS ORDERED: MIDAZOLAM 2 MG/2 ML VIAL ONE (07:50)
[2021-04-22] MEDS ORDERED: fentaNYL (PF) 50 MCG/ML 50 ML VIAL ONE (07:50)
[2021-04-22] MEDS ORDERED: MAGNESIUM SULFATE 4 MEQ/ML 10ML VIAL ONE (07:50)
[2021-04-22] MEDS ORDERED: PHENYLEPHRINE-0.9% NACL SYG 1,000 MCG/10 ML SYRINGE ONE (07:50)
[2021-04-22] MEDS ORDERED: HEPARIN SODIUM,PORCINE 10,000 UNIT/ML 1 ML VIAL ONE (07:50)
[2021-04-22] MEDS ORDERED: TRANEXAMIC ACID 1,000 MG/10 ML VIAL ONE (07:50)
[2021-04-22] MEDS ORDERED: ELECTROLYTE-R (PH 7.4) 1,000 ML IV.SOLN IV ONE (07:50)
[2021-04-22] MEDS ORDERED: VECURONIUM 10 MG VIAL IV ONE (07:50)
[2021-04-22] MEDS ORDERED: NITROGLYCERIN-D5W PMX 50 MG/250 ML BOTTLE IV ONE (07:50)
[2021-04-22] MEDS ORDERED: ePHEDrine 50 MG/ML 1 ML AMP ONE (07:50)
[2021-04-22] MEDS ORDERED: LIDOCAINE 2% SYG (PF) 100 MG/5 ML ONE (07:50)
[2021-04-22] MEDS ORDERED: PROPOFOL 10 MG/ML 20 ML VIAL IV ONE (07:50)
[2021-04-22] MEDS ORDERED: SODIUM CHLORIDE 0.9% 250 ML BAG ONE (07:50)
[2021-04-22] MEDS ORDERED: CALCIUM CHLORIDE 100 MG/ML 10 ML SYRINGE ONE (07:50)
[2021-04-22] MEDS ORDERED: WATER FOR INJECTION, STERILE 10 ML VIAL IV ONE (07:50)
[2021-04-22] MEDS ORDERED: ALBUMIN HUMAN 5% (25gm) 500 ML VIAL IVPB ONE (07:50)
[2021-04-22] MEDS ORDERED: SODIUM CHLORIDE 0.9% IRRIG 1,000 ML BTL IRRIGATION ONE (07:50)
[2021-04-22 08:47] LABS: ABG Base Excess 1.5 mmol/L; ABG Glucose Whole Blood 93 mg/dL (75-99); ABG HCO3 28 mmol/L (21-25); ABG Hematocrit 42 % (34.0-46.0); ABG Lactic Acid Whole Blood 0.8 mmol/L (0.5-1.6); ABG Oxygen Saturation 99.7 % (94-97); ABG PCO2 48 mmHg (35-45); ABG PH 7.37 (7.35-7.45); ABG PO2 241 mmHg (83-108); ABG Potassium Whole Blood 4.4 mmol/L (3.4-4.5); ABG Sodium Whole Blood 141 mmol/L (135-146); ABG TCO2 29 mmol/L (19-24)
[2021-04-22 11:38] LABS: ABG Base Excess 0.7 mmol/L; ABG Glucose Whole Blood 100 mg/dL (75-99); ABG HCO3 27 mmol/L (21-25); ABG Hematocrit 41 % (34.0-46.0); ABG Lactic Acid Whole Blood 0.7 mmol/L (0.5-1.6); ABG Oxygen Saturation 99.9 % (94-97); ABG PCO2 50 mmHg (35-45); ABG PH 7.34 (7.35-7.45); ABG PO2 281 mmHg (83-108); ABG Potassium Whole Blood 4.5 mmol/L (3.4-4.5); ABG Sodium Whole Blood 140 mmol/L (135-146); ABG TCO2 29 mmol/L (19-24)
[2021-04-22 12:29] LABS: ABG Base Excess 0.3 mmol/L; ABG Glucose Whole Blood 94 mg/dL (75-99); ABG HCO3 26 mmol/L (21-25); ABG Hematocrit 33 % (34.0-46.0); ABG Ionized Calcium 4.3 mg/dL (4.5-5.3); ABG Lactic Acid Whole Blood 0.8 mmol/L (0.5-1.6); ABG PCO2 43 mmHg (35-45); ABG PH 7.38 (7.35-7.45); ABG Potassium Whole Blood 4.4 mmol/L (3.4-4.5); ABG Sodium Whole Blood 136 mmol/L (135-146); ABG TCO2 27 mmol/L (19-24)
[2021-04-22 13:09] LABS: ABG Base Excess 1.2 mmol/L; ABG Glucose Whole Blood 94 mg/dL (75-99); ABG HCO3 26 mmol/L (21-25); ABG Hematocrit 32 % (34.0-46.0); ABG Ionized Calcium 4.5 mg/dL (4.5-5.3); ABG Lactic Acid Whole Blood 0.9 mmol/L (0.5-1.6); ABG PCO2 43 mmHg (35-45); ABG PO2 357 mmHg (83-108); ABG Potassium Whole Blood 5.2 mmol/L (3.4-4.5); ABG Sodium Whole Blood 138 mmol/L (135-146); ABG TCO2 28 mmol/L (19-24)
[2021-04-22 13:51] LABS: ABG Base Excess 1.2 mmol/L; ABG Glucose Whole Blood 99 mg/dL (75-99); ABG HCO3 26 mmol/L (21-25); ABG Hematocrit 31 % (34.0-46.0); ABG Ionized Calcium 4.3 mg/dL (4.5-5.3); ABG Lactic Acid Whole Blood 1.1 mmol/L (0.5-1.6); ABG PCO2 40 mmHg (35-45); ABG PH 7.42 (7.35-7.45); ABG PO2 356 mmHg (83-108); ABG Potassium Whole Blood 5.1 mmol/L (3.4-4.5); ABG Sodium Whole Blood 138 mmol/L (135-146); ABG TCO2 27 mmol/L (19-24)
[2021-04-22 14:23] LABS: ABG Base Excess 0.7 mmol/L; ABG Glucose Whole Blood 99 mg/dL (75-99); ABG HCO3 26 mmol/L (21-25); ABG Hematocrit 32 % (34.0-46.0); ABG Ionized Calcium 4.4 mg/dL (4.5-5.3); ABG Lactic Acid Whole Blood 1.2 mmol/L (0.5-1.6); ABG PCO2 42 mmHg (35-45); ABG PH 7.39 (7.35-7.45); ABG PO2 328 mmHg (83-108); ABG Sodium Whole Blood 139 mmol/L (135-146); ABG TCO2 27 mmol/L (19-24)
--- NOTE | 2021-04-22 14:46 | P.ANPRN ---
Procedure Note - Anesthesia - Invasive Line Right Central Line Time Out Performed: Yes (0731) Date of Procedure: 04/22/21 Time of Procedure: 07:32 Location of Patient: Phase I Preparation: Sterile Prep, Sterile Dressing Arterial Line Location: Radial (right) Ultrasound Used: Yes Purpose - Visualization and Identification of Vasculature: Yes Needle Guage: 18g angio Image Stored and Saved: Yes Narrative: Central line placement per sterile protocol utilized. +local +angio +cvp +jwire +uneventful introduction and dilation right IJ cordis. Lumen bled and flushed. Attempt x1. Secured and dressed following floating of sherita
--- NOTE | 2021-04-22 14:48 | P.ANPRN ---
Procedure Note - Anesthesia - Invasive Line Right Decker Balbir Time Out Performed: Yes (0731) Date of Procedure: 04/22/21 Time of Procedure: 07:41 Location of Patient: Phase I Preparation: Sterile Prep, Sterile Dressing Arterial Line Location: Radial Ultrasound Used: No Purpose - Visualization and Identification of Vasculature: No Image Stored and Saved: No Narrative: Central line placement per sterile protocol utilized. floated in one attempt to pa wedge at 52cc. balloon down W/d to 47 cm.
[2021-04-22 15:01] LABS: ABG Glucose Whole Blood 104 mg/dL (75-99); ABG HCO3 27 mmol/L (21-25); ABG Hematocrit 31 % (34.0-46.0); ABG Ionized Calcium 4.4 mg/dL (4.5-5.3); ABG Lactic Acid Whole Blood 1.5 mmol/L (0.5-1.6); ABG Oxygen Saturation 99.4 % (94-97); ABG PCO2 51 mmHg (35-45); ABG PH 7.32 (7.35-7.45); ABG PO2 165 mmHg (83-108); ABG Sodium Whole Blood 139 mmol/L (135-146); ABG TCO2 28 mmol/L (19-24)
[2021-04-22 15:07] LABS: ABG Base Excess -0.1 mmol/L; ABG Glucose Whole Blood 108 mg/dL (75-99); ABG HCO3 26 mmol/L (21-25); ABG Hematocrit 31 % (34.0-46.0); ABG Ionized Calcium 4.5 mg/dL (4.5-5.3); ABG Lactic Acid Whole Blood 1.5 mmol/L (0.5-1.6); ABG PCO2 48 mmHg (35-45); ABG PH 7.34 (7.35-7.45); ABG PO2 400 mmHg (83-108); ABG Sodium Whole Blood 140 mmol/L (135-146); ABG TCO2 27 mmol/L (19-24)
[2021-04-22 15:51] LABS: ABG PO2 >420 mmHg (83-108)
[2021-04-22 15:52] LABS: ABG Glucose Whole Blood 106 mg/dL (75-99); ABG HCO3 26 mmol/L (21-25); ABG Hematocrit 30 % (34.0-46.0); ABG Ionized Calcium 4.7 mg/dL (4.5-5.3); ABG Lactic Acid Whole Blood 1.5 mmol/L (0.5-1.6); ABG PCO2 45 mmHg (35-45); ABG PH 7.36 (7.35-7.45); ABG PO2 262 mmHg (83-108); ABG Potassium Whole Blood 4.2 mmol/L (3.4-4.5); ABG Sodium Whole Blood 140 mmol/L (135-146); ABG TCO2 27 mmol/L (19-24)
[2021-04-22] MEDS ORDERED: BENZOCAINE/MENTHOL LOZENG 1 EACH LOZENGE MUCOUS MEM PRN (16:24)
[2021-04-22] MEDS ORDERED: Magnesium Replacement Protocol 1 EACH MISC MISCELLANE PRN (16:24)
[2021-04-22] MEDS ORDERED: CALCIUM GLUCONATE 2 GM in SODIUM CHLORIDE 0.9% 100 ML IVPB PRN (16:24)
[2021-04-22] MEDS ORDERED: MORPHINE SULFATE 2 MG/ML SYRINGE IVP PRN (16:24)
[2021-04-22] MEDS ORDERED: Potassium Replacement Protocol 1 EACH MISC MISCELLANE PRN (16:24)
[2021-04-22] MEDS ORDERED: Phosphorus Replacement Protoco 1 EACH MISC MISCELLANE PRN (16:24)
[2021-04-22] MEDS ORDERED: hydrALAZINE HCL 20 MG/ML 1 ML VIAL IVP PRN (16:24)
[2021-04-22] MEDS ORDERED: METOCLOPRAMIDE 5 MG/ML 2 ML VIAL IVP PRN (16:24)
[2021-04-22] MEDS ORDERED: DEXTROSE 5% IN WATER 100 ML with AMIODARONE 150 MG IV PRN (16:24)
[2021-04-22] MEDS ORDERED: ONDANSETRON 4 MG/2 ML VIAL IVP PRN (16:24)
[2021-04-22] MEDS ORDERED: AMIODARONE 450 MG in DEXTROSE 5% IN WATER 250 ML IV PRN ×2 (16:24)
[2021-04-22] MEDS ORDERED: DEXMEDETOMIDINE/0.9% NACL(PMX) 400 MCG in EMPTY BAG 1 BAG IV SCH (16:24)
[2021-04-22] MEDS ORDERED: IPRATROPIUM-ALBUTEROL 3 ML NEB INHALATION PRN (16:24)
[2021-04-22] MEDS ORDERED: AMIODARONE 360 MG in DEXTROSE 5% IN WATER 200 ML IV PRN ×2 (16:24)
[2021-04-22] MEDS: MUPIROCIN 2% OINT 22 GM TUBE NASAL SCH ×2 (16:32→20:30)
--- NOTE | 2021-04-22 16:59 | P.PN ---
Subjective Progress Note Date: 04/22/21 Principal diagnosis: Coronary artery disease. This is a very pleasant 65-year-old male patient with a known history of lower extremity peripheral arterial disease, hypertension, hyperlipidemia who been having intermittent episodes of chest discomfort. He was brought in electively today for cardiac catheterization via the right radial approach with Dr. Lu. He was found to have extremely calcified right and left coronary systems. Critical disease involving the RCA. Critical disease involving the left main artery. He is recommended coronary artery bypass grafting. Computed tomography scan of the chest revealed mild streak atelectasis of the right lung base. The patient is a lifelong nonsmoker. No history of pulmonary disease. He is seen in consultation on the selective care unit. He is maintaining O2 saturations in the 90s on room air. No IV fluids. Carotid Dopplers revealed a slightly elevated peak systolic velocity in the right ICA presenting a moderate 50-70% stenosis. X-ray revealed some chronic appearing interstitial changes with scarring or atelectasis of the lower lobes. No acute pulmonary process. Old left-sided rib fracture deformities noted. White count 6.8. Hemoglobin 14.1. Sodium 139. Potassium 4.2. Creatinine 0.93. Glucose 107. Coronavirus by PCR not detected on 04/19/2021. Progress note dated 04/21/2021. 65-year-old male, seen yesterday in consultation. The patient is scheduled for bypass grafting tomorrow. Clinically he is doing well. I explained our role in the process including extubating him from mechanical ventilation as soon as possible after the surgery, and also, following along throughout his hospitali zation, to make sure, that his lungs remain healthy. Today, he is seen. He is on room air. Is not receiving any IV fluids. He is a lifelong nonsmoker, and has no history of any lung disease. Progress note dated 04/22/2021. 65-year-old male, postop day #0, status post 5 vessel bypass grafting. The patient just came back to the intensive care unit, room 267. Currently, he's on nitroglycerin at 5 mcg/m, propofol at 20 mcg/kg/m, and saline at 50 mL an hour. The surgery was done by Dr. Mckenzie. The patient is on the ventilator obviously, with settings of volume assist control, rate 12, tidal volume 450, FiO2 100% and PEEP of 5. The last blood gases done in the operating room show a PaO2 of 262, pCO2 of 45, pH is 7.36. The patient had excellent lung function. He is a lifelong nonsmoker. He should wean pretty quickly this afternoon/this evening. Post-ICU blood gases have not yet been done. Also, chest x-ray has not been done as yet. Objective - Vital Signs Vital signs: Vital Signs Temp 97.9 F 04/22/21 06:29 Pulse 59 L 04/22/21 06:29 Resp 16 04/22/21 05:45 BP 128/78 04/22/21 06:29 Pulse Ox 97 04/22/21 06:29 Intake & Output 04/21/21 04/22/21 04/22/21 18:59 06:59 18:59 Intake Total 540 100 603 Output Total 2660 Balance 540 100 -2057 Weight 81.9 kg Intake: IV 100 603 Intake, IV Titration 0 Amount Sodium Chloride 0.9% 1, 0 000 ml @ 0 mls/hr IV .[employer] [facility] Rx#:[id number] Oral 540 Output: Urine 860 Estimated Blood Loss 1800 Other: Voiding Method Toilet # Voids 1 1 - Exam No acute distress, sedated on propofol, with an orally placed endotracheal tube and NG tube. HEENT examination is grossly unremarkable. Neck supple. Full range of motion. No adenopathy thyromegaly or neck vein distention. Cardiovascular examination reveals regular rhythm rate. S1-S2 normal. No S3 or S4. No discernible murmur noted. Heart rate 79 bpm. Lungs reveal mostly clear breath sounds. Mild scattered rhonchi. No wheezes or crackles. Breath sounds equal. Abdomen soft without bowel sounds. Extremities are intact. No cyanosis clubbing or edema. Skin is without rash or lesion. Neurologic examination cannot be performed as the patient's currently sedated. - Labs CBC & Chem 7: 04/21/21 08:24 04/21/21 08:24 Labs: Abnormal Lab Results - Last 24 Hours (Table) 04/21/21 04/22/21 04/22/21 Range/Units 08:24 08:47 11:37 ABG pH 7.34 L (7.35-7.45) ABG pCO2 48 H 50 H (35-45) mmHg ABG pO2 241 H 281 H (83-108) mmHg ABG HCO3 28 H 27 H (21-25) mmol/L ABG Total CO2 29 H 29 H (19-24) mmol/L ABG O2 Saturation 99.7 H 99.9 H (94-97) % ABG Hematocrit (34.0-46.0) % ABG Potassium (3.4-4.5) mmol/L ABG Ionized Calcium (4.5-5.3) mg/dL ABG Glucose 100 H (75-99) mg/dL Hemoglobin (13.0-17.5) gm/dL Arterial Blood Potassium (3.4-4.5) mmol/L Arterial Blood Glucose 100 H (75-99) mg/dL Crossmatch See Detail 04/22/21 04/22/21 04/22/21 Range/Units 12:28 13:08 13:51 ABG pH (7.35-7.45) ABG pCO2 (35-45) mmHg ABG pO2 >420 H 357 H 356 H (83-108) mmHg ABG HCO3 26 H 26 H 26 H (21-25) mmol/L ABG Total CO2 27 H 28 H 27 H (19-24) mmol/L ABG O2 Saturation 100.0 H 100.0 H 100.0 H (94-97) % ABG Hematocrit 33 L 32 L 31 L (34.0-46.0) % ABG Potassium 5.2 H 5.1 H (3.4-4.5) mmol/L ABG Ionized Calcium 4.3 L 4.3 L (4.5-5.3) mg/dL ABG Glucose (75-99) mg/dL Hemoglobin 10.8 L 10.6 L 10.2 L (13.0-17.5) gm/dL Arterial Blood Potassium 5.2 H 5.1 H (3.4-4.5) mmol/L Arterial Blood Glucose (75-99) mg/dL Crossmatch 04/22/21 04/22/21 04/22/21 Range/Units 14:21 15:00 15:06 ABG pH 7.32 L 7.34 L (7.35-7.45) ABG pCO2 51 H 48 H (35-45) mmHg ABG pO2 328 H 165 H 400 H (83-108) mmHg ABG HCO3 26 H 27 H 26 H (21-25) mmol/L ABG Total CO2 27 H 28 H 27 H (19-24) mmol/L ABG O2 Saturation 100.0 H 99.4 H 100.0 H (94-97) % ABG Hematocrit 32 L 31 L 31 L (34.0-46.0) % ABG Potassium 5.0 H 5.0 H 5.0 H (3.4-4.5) mmol/L ABG Ionized Calcium 4.4 L 4.4 L (4.5-5.3) mg/dL ABG Glucose 104 H 108 H (75-99) mg/dL Hemoglobin 10.3 L 10.0 L 10.1 L (13.0-17.5) gm/dL Arterial Blood Potassium 5.0 H 5.0 H 5.0 H (3.4-4.5) mmol/L Arterial Blood Glucose 104 H 108 H (75-99) mg/dL Crossmatch 04/22/21 Range/Units 15:52 ABG pH (7.35-7.45) ABG pCO2 (35-45) mmHg ABG pO2 262 H (83-108) mmHg ABG HCO3 26 H (21-25) mmol/L ABG Total CO2 27 H (19-24) mmol/L ABG O2 Saturation 100.0 H (94-97) % ABG Hematocrit 30 L (34.0-46.0) % ABG Potassium (3.4-4.5) mmol/L ABG Ionized Calcium (4.5-5.3) mg/dL ABG Glucose 106 H (75-99) mg/dL Hemoglobin 9.8 L (13.0-17.5) gm/dL Arterial Blood Potassium (3.4-4.5) mmol/L Arterial Blood Glucose 106 H (75-99) mg/dL Crossmatch Microbiology - Last 24 Hours (Table) 04/20/21 14:34 Nasal Screen MRSA/MSSA - Final Nasal Swab Assessment and Plan Assessment: 1 Chest pain in a patient found to have severe coronary artery disease with right and left heavily calcified system. Critical disease involving the RCA with proximal lesion of 70-80%. Critical lesion involving the ostium of the left main of 80-90%. The plan is for coronary revascularization on 04/22/2021. Status post five-vessel bypass grafting, postop day #0. 2 Right internal carotid stenosis of 50-70%. 3 History of peripheral arterial disease. 4 Hypertension. 5 Hyperlipidemia. 6 Lifelong nonsmoker. FEV1 value 2.7 L which is 88% of predicted. Plan: Plan dated 04/21/2021. The patient is seen and evaluated yesterday in consultation, and from our standpoint, we'll do well with surgery. Lung function are excellent. He is at no increased operative risk. He is a lifelong nonsmoker. X-ray, labs, CAT scans, and so forth are all reviewed. The patient is educated about the importance of incentive spirometry. In addition, we explained the role of the pulmonary and critical care physician, for open heart patient's. Plan dated 04/22/2021. The patient will have blood gases and chest x-ray done. The nurses to call me with the blood gases, and ventilator adjustments will be made. The patient started on updrafts every 4 [id number]. Additional laboratory data will be available soon. We will attempt to wean the patient from mechanical ventilation as soon as possible. Our goal is to get him extubated before 6 hours, and hopefully before 4 hours if possible. Post extubation, the patient will be encouraged to deep breathe, cough, and clear secretions, as well as using incentive spirometer every hour while awake. We did discuss this preoperatively. Additional recommendations and suggestions are forthcoming. Time with Patient: Greater than 30
[2021-04-22 17:12] LABS: ABG Base Excess 0.4 mmol/L; ABG HCO3 26 mmol/L (21-25); ABG PCO2 48 mmHg (35-45); ABG PH 7.35 (7.35-7.45); ABG PO2 >400 mmHg (83-108); ABG TCO2 28 mmol/L (19-24); Allen Test Performed? Yes
[2021-04-22 17:15] LABS: Glucose,Whole Blood 87 mg/dL (75-99)
[2021-04-22 17:23] LABS: Basophils % (A) 0 %; Eosinophils # (A) 0.1 k/uL (0-0.7); Eosinophils % (A) 1 %; HCT 32.8 % (39.0-53.0); Lymphocytes # (A) 0.7 k/uL (1.0-4.8); Lymphocytes % (A) 8 %; MCH 32.7 pg (25.0-35.0); MCHC 33.3 g/dL (31.0-37.0); Mean Platelet Volume 7.7; Monocytes # (A) 0.5 k/uL (0-1.0); Monocytes % (A) 5 %; Neutrophils # (A) 7.7 k/uL (1.3-7.7); Neutrophils % (A) 85 %; Platelet Count 100 k/uL (150-450); RBC 3.35 m/uL (4.30-5.90); RDW 13.7 % (11.5-15.5); WBC 9.1 k/uL (3.8-10.6)
[2021-04-22 17:29] LABS: HGB 10.9 gm/dL (13.0-17.5); Ionized Calcium 5.1 mg/dL (4.5-5.3)
--- NOTE | 2021-04-22 17:32 | XR ---
EXAMINATION TYPE: XR chest 1V portable DATE OF EXAM: 04/22/2021 COMPARISON: NONE HISTORY: History of surgery TECHNIQUE: Single view FINDINGS: There is right jugular catheter with tip in the main pulmonary artery. There is tubing over the esophagus that is probably nasogastric tube and the tip not well seen. Tip could be in the stoma ch. The endotracheal tube is 4.5 cm from the jade. There is no heart failure. There is old left-roque ed rib fractures. There is slight blunting of the left costophrenic angle.. IMPRESSION: Minimal pleural reaction and fluid at the left lung base. No heart failure.
[2021-04-22 17:36] LABS: ALT 22 U/L (4-49); AST 66 U/L (17-59); African American GFR (CKD) >90 (>60 ml/min/1.73 sqM); Albumin 2.7 g/dL (3.5-5.0); Alkaline Phosphatase 25 U/L (38-126); Anion Gap 3 mmol/L; Blood Urea Nitrogen 16 mg/dL (9-20); Calcium 8.2 mg/dL (8.4-10.2); Carbon Dioxide 25 mmol/L (22-30); Chloride 110 mmol/L (98-107); Glucose 88 mg/dL (74-99); INR 1.2 (<1.2); Magnesium 2.6 mg/dL (1.6-2.3); Non-African American GFR(CKD) >90 (>60 ml/min/1.73 sqM); Partial Thromboplastin Time 28.4 sec (22.0-30.0); Potassium 4.4 mmol/L (3.5-5.1); Prothrombin Time 12.4 sec (9.0-12.0); Sodium 138 mmol/L (137-145); Total Bilirubin 0.9 mg/dL (0.2-1.3); Total Protein 4.8 g/dL (6.3-8.2)
[2021-04-22 18:08] LABS: Glucose,Whole Blood 68 mg/dL (75-99)
[2021-04-22 18:08] LABS: Glucose,Whole Blood 116 mg/dL (75-99)
[2021-04-22] MEDS: IPRATROPIUM-ALBUTEROL 3 ML NEB INHALATION SCH ×2 (18:15→20:51)
[2021-04-22] MEDS: ALBUMIN HUMAN 5% 250 ML in EMPTY BAG 1 BAG IVPB PRN ×3 (18:30→20:39)
[2021-04-22] MEDS: SODIUM CHLORIDE 0.9% 1,000 ML IV SCH (18:47)
[2021-04-22] MEDS: HEPARIN SODIUM,PORCINE/PF 5,000 UNIT/0.5 ML SYRINGE SQ SCH ×2 (19:08→23:43)
[2021-04-22 19:15] LABS: Glucose,Whole Blood 70 mg/dL (75-99)
[2021-04-22 19:16] LABS: Glucose,Whole Blood 123 mg/dL (75-99)
[2021-04-22] MEDS: ACETAMINOPHEN IV (For NPO) 1,000 MG in EMPTY BAG 1 BAG IVPB SCH ×2 (19:24→23:33)
--- NOTE | 2021-04-22 19:40 | OP ---
OPERATIVE REPORT DATE OF SURGERY: 04/22/2021. SURGEON: Dr. Cachorro Mckenzie ASSISTANTS: 1. CONNOR Robertson. 2. COLBY Guadarrama. PREOPERATIVE DIAGNOSES: Triple-vessel coronary artery disease with left main ostial disease, unstable angina, preserved systolic function, hypertension, hyperlipidemia, positive family history. POSTOPERATIVE DIAGNOSES: Triple-vessel coronary artery disease with left main ostial disease, unstable angina, preserved systolic function, hypertension, hyperlipidemia, positive family history, with diffuse calcific disease. PROCEDURE: 1. Quintuple coronary artery bypass grafting using the left internal mammary artery to the second diagonal artery in a [id number] fashion, then to the mid to distal left anterior descending artery across a calcified plaque in an end-to-side fashion, left radial artery from the aorta to the ramus intermedius artery, reverse saphenous vein graft from the aorta to the posterior descending artery in a side-to- side fashion, then to the posterolateral branch of the right coronary artery in an end-to-side fashion. 2. Exclusion of the left atrial appendage using a 35 mm AtriClip. 3. Endoscopic harvesting of the left radial artery. 4. Endoscopic harvesting of the whole left greater saphenous vein and the right greater saphenous vein from groin to knee level. 5. Intraoperative transesophageal echocardiogram and epiaortic scanning. 6. Graft flow measurements using the HItviews system. INDICATION FOR SURGERY: This patient is a 65-year-old gentleman with the above comorbidities who had a cardiac catheterization in view of unstable angina symptoms. That showed calcific ostial left main disease with advanced triple-vessel disease. The patient was kept in the hospital and we are proceeding today with urgent coronary artery bypass grafting. The STS risk was discussed with him and his . They understood and agreed to proceed. DESCRIPTION OF PROCEDURE: The patient was brought to the operating room with a [place]-Balbir already inserted in the preoperative holding area via the right internal jugular vein and the right radial artery. He had excellent cardiac index and normal PA pressure. Subsequently general endotracheal anesthesia was induced uneventfully. A Montesinos catheter was inserted. The chest, abdomen and both lower extremities were prepped and draped using ChloraPrep. Ioban was used to cover the skin. Patient received 2 grams of cefazolin intravenously. Transesophageal echocardiogram confirmed the preoperative finding of preserved systolic function and no significant valvular abnormalities. Midline sternotomy was performed and the bone was normal, profusely bleeding. The left hemisternum was elevated and the left internal mammary artery was harvested in a semi- skeletonized fashion. The left pleura was intentionally opened in this process and it showed quite a bit of adhesions between the left lung and the chest wall in view of previous history of traumatic pneumothorax of the patient, but we had room to insert a 19-[place] Joseph drain posterolaterally. Patient was given 5000 units of heparin. The mammary artery was clipped distally and transected. It had an excellent pulsatile flow in it and was around 2.5 mm in diameter, thin-walled. In the same setting, the left radial artery was initially exposed at the wrist, and a clamping trial revealed preserved signal in the left index O2 saturation probe. The artery was harvested endoscopically. The forearm incisions were closed over a drain. The artery was prepared by incising the fascia all along its volar aspect and clipping all its branches. It was of excellent quality, around 3 mm in diameter. Also in the same setting and after administration of 2500 units of heparin, the totality of the left greater saphenous vein was harvested endoscopically from groin to above-ankle levels. Leg incisions were closed over a drain. The vein was prepared, and unfortunately the vein we deemed was essentially non-usable in view of a lot of diameter changes, thickening and varicosities. At most we could spare probably a short segment out of it which was of a small caliber. For that reason, we decided to harvest the right greater saphenous vein from groin to knee level. That was done and the leg incisions were closed over a drain. That piece of vein was around 5 mm in diameter, uniform, thin-walled; however, it had two separate areas of large varicosities. Those areas were excluded by a pursestring of 7-0 Prolene at the neck of each varicosity and by clipping it also. Finally, we had to work with what seemed to be the best conduit we could obtain, particularly for the right side targets. Standard Claros retractor was used. Mediastinal fat was transected between two ties. Epiaortic scanning revealed normal ascending aorta. Pericardium was opened in an inverted T-fashion and a pericardial cradle was created. Findings included normal soft aorta and a normal-sized heart; however, with visible and palpable calcific disease that was diffuse in nature. After systemic heparinization and after placement of respective pledgeted pursestrings, aortic cannulation with a 21-[place] Soft flow cannula and venous cannulation with a 3- stage 29-[place] cannula via the right atrial appendage were performed. Antegrade as well as retrograde cardioplegia catheter and strategies were followed. Cardiopulmonary bypass was initiated, and with the heart empty and beating, we looked at the target. The most medial branch of the two posterolateral branches of the right coronary artery before it bifurcated was the site of the first bypass. The PDA in its mid aspect would be the site for the second bypass where it was thin-walled after diffuse disease. Looking at the LAD in its first half, it was calcified; however, it then became soft. Then there was one focal area of calcific plaque and then a good artery beyond it distally. Decision was made to do an anastomosis across that plaque, whereby supplying the whole distal and mid LAD in that fashion. The second diagonal artery distally had also a spot which was a site for bypass. We were able to identify the ramus intermedius very proximally before it went intramyocardial. Aorta was clamped, and during aortic clamping myocardial protection was achieved with initial dose of 1 L of antegrade cold blood cardioplegia followed by 300 mL of retrograde cold blood cardioplegia. All subsequent doses were given retrograde at 15- to 20-minute intervals. The last dose was warm blood via the retrograde route of around 800 mL. The first distal anastomosis was between that large thin-walled vein and the medial branch of the posterolateral branch tributary of the right coronary artery which was around 1.75 mm in diameter, thin-walled, using Prolene 7-0 in continuous fashion. That same graft was subsequently as a second anastomosis anastomosed to the posterior descending artery in a emxq-vi-zjsw michael-shaped fashion using Prolene 7-0 in continuous fashion. The third distal anastomosis was between the radial artery and the very proximal aspect of the ramus intermedius artery as it went into myocardial, which was opened and was around 1.5 mm in diameter using Prolene 7-0 in continuous fashion. The fourth distal anastomosis was between the left internal mammary artery that passed in a deep groove in the left pleuropericardial fat and anastomosed in a [id number] parallel fashion to the second diagonal artery which was around 1.5 mm in diameter using Prolene 7-0 in continuous fashion. The fifth and last distal anastomosis was between the end of the internal mammary artery that had an excellent flow in it and the mid to distal aspect of the left anterior descending artery across the calcific plaque that was mentioned above in an area where the diameter was around 2 mm. The toe was in a healthy area as well as the heel. The anastomosis was completed using Prolene 7-0 and laterally we had to go deep around the plaque, as it was totally calcified, incorporating it into the anastomosis. Satisfied with the distal anastomoses, rewarming was started as we punched out two buttons of the ascending aorta and performed the proximal anastomosis of the radial artery using running Prolene 7-0 and the anastomosis of the vein graft to the anterior aspect of the proximal aorta using Prolene 6-0 in a continuous fashion; again after fashioning two buttons using a 4 mm punch. De-airing maneuvers followed. Patient was given lidocaine and magnesium. Subsequently the aorta was unclamped. The patient regained spontaneous sinus rhythm. Hemostasis appeared to be adequate distally. Proximally we had to add one stitch at the level of the vein proximal anastomosis. After around 15 to 20 minutes of reperfusion, we were able to wean off cardiopulmonary bypass without the need of any inotropic or vasopressor support. However, I had placed two monopolar atrial pacing wires at the level of respective pursestrings of the right atrium and we had instituted atrial pacing at 80 in view of baseline sinus bradycardia. No ventricular wires were placed. SENIA showed excellent function. Cardiac index was 2.5. With that, all pump suckers were stopped. Test-dose followed by full-dose protamine was given. Decannulation followed. The aortic as well as the venous cannulation sites were both reinforced with running 4-0 Prolene. Two 19-[place] Joseph drains were left substernally. At this point, we proceeded with formal graft flow measurements using the HItviews system. Initially a 5 mm probe was selected and the flow into the vein graft to the posterior descending artery and the posterolateral branch of the right coronary artery was 61 mL/minute, pulsatility index of 2.8, diastolic filling of 67%, showing excellent functioning graft. Subsequently a 3 mm probe was selected and the flow into the radial artery to the ramus intermedius artery was 37 mL/minute, pulsatility index of 1.5, and diastolic filling of 75%, showing excellent functioning graft. The same probe was used to measure the flow into the proximal left internal mammary artery that went to the diagonal artery and the left anterior descending artery. The flow was 52 mL/minute, pulsatility index of 2.3, diastolic filling of 76%, showing excellent functioning graft. Pericardial fat was approximated over the aorta and the heart. After ensuring adequate hemostasis and hemodynamics and after correct sponge, instrument and needle counts, the sternum was closed using 5 peoucx-vc-rroag [place] cables after interposing Fibrillar between the sternal edges. Thorough irrigation with cefazolin followed. The rest of the closure proceeded in layers. Skin glue was applied. Patient did not receive any blood bank product but received 670 mL of Cell Saver blood. He was transferred to the ICU in stable condition, atrial paced at 80 with normal PA pressure, cardiac index 2.5 on low-dose nitroglycerin. MMODL / IJN: [id number] / BRII
[2021-04-22 20:00] LABS: Glucose,Whole Blood 120 mg/dL (75-99)
[2021-04-22 20:07] LABS: Basophils % (A) 0 %; Eosinophils % (A) 0 %; HCT 29.6 % (39.0-53.0); Lymphocytes # (A) 0.7 k/uL (1.0-4.8); Lymphocytes % (A) 5 %; MCH 32.4 pg (25.0-35.0); MCHC 33.8 g/dL (31.0-37.0); MCV 95.6 fL (80.0-100.0); Mean Platelet Volume 8.6; Monocytes # (A) 0.8 k/uL (0-1.0); Monocytes % (A) 6 %; Neutrophils # (A) 11.4 k/uL (1.3-7.7); Neutrophils % (A) 88 %; Platelet Count 123 k/uL (150-450); RBC 3.09 m/uL (4.30-5.90); RDW 12.9 % (11.5-15.5)
[2021-04-22 21:08] LABS: Glucose,Whole Blood 123 mg/dL (75-99)
[2021-04-22 21:55] LABS: ABG Base Excess -2.1 mmol/L; ABG HCO3 23 mmol/L (21-25); ABG PCO2 40 mmHg (35-45); ABG PH 7.37 (7.35-7.45); ABG PO2 123 mmHg (83-108); ABG TCO2 25 mmol/L (19-24); Allen Test Performed? Yes
[2021-04-22 21:57] LABS: Glucose,Whole Blood 126 mg/dL (75-99)
[2021-04-22] MEDS: NOREPINEPHRINE 4 MG in SODIUM CHLORIDE 0.9% 250 ML IV SCH (22:15)
[2021-04-22 23:09] LABS: Glucose,Whole Blood 138 mg/dL (75-99)
[2021-04-22 23:53] LABS: Basophils % (A) 0 %; Eosinophils % (A) 0 %; HCT 27.3 % (39.0-53.0); Lymphocytes # (A) 0.4 k/uL (1.0-4.8); Lymphocytes % (A) 3 %; MCH 31.5 pg (25.0-35.0); MCHC 33.1 g/dL (31.0-37.0); MCV 95.2 fL (80.0-100.0); Mean Platelet Volume 8.2; Monocytes # (A) 0.5 k/uL (0-1.0); Monocytes % (A) 5 %; Neutrophils # (A) 9.9 k/uL (1.3-7.7); Neutrophils % (A) 91 %; Platelet Count 109 k/uL (150-450); RBC 2.86 m/uL (4.30-5.90); RDW 13.1 % (11.5-15.5); WBC 10.8 k/uL (3.8-10.6)
[2021-04-23 00:24] LABS: Glucose,Whole Blood 138 mg/dL (75-99)
[2021-04-23 01:07] LABS: Glucose,Whole Blood 139 mg/dL (75-99)
[2021-04-23] MEDS: KETOROLAC 30 MG/ML 1 ML VIAL IVP PRN ×4 (01:29→20:54)
[2021-04-23 02:10] LABS: Glucose,Whole Blood 135 mg/dL (75-99)
[2021-04-23 03:04] LABS: Glucose,Whole Blood 141 mg/dL (75-99)
[2021-04-23] MEDS ORDERED: HYDROcodone/APAP 5-325MG 1 EACH TAB PO PRN (04:01)
[2021-04-23 04:10] LABS: Glucose,Whole Blood 142 mg/dL (75-99)
[2021-04-23 05:06] LABS: Glucose,Whole Blood 131 mg/dL (75-99)
[2021-04-23 05:28] LABS: Basophils % (A) 0 %; Eosinophils % (A) 0 %; HCT 27.3 % (39.0-53.0); HGB 9.1 gm/dL (13.0-17.5); Lymphocytes # (A) 0.6 k/uL (1.0-4.8); Lymphocytes % (A) 7 %; MCH 32.1 pg (25.0-35.0); MCHC 33.1 g/dL (31.0-37.0); MCV 96.8 fL (80.0-100.0); Mean Platelet Volume 8.3; Monocytes # (A) 0.4 k/uL (0-1.0); Monocytes % (A) 4 %; Neutrophils % (A) 88 %; Platelet Count 112 k/uL (150-450); RBC 2.82 m/uL (4.30-5.90); RDW 13.7 % (11.5-15.5); WBC 9.1 k/uL (3.8-10.6)
[2021-04-23] MEDS: ALBUMIN HUMAN 5% 250 ML in EMPTY BAG 1 BAG IVPB PRN (06:23)
[2021-04-23 06:33] LABS: Glucose,Whole Blood 147 mg/dL (75-99)
--- NOTE | 2021-04-23 06:51 | XR ---
EXAMINATION TYPE: XR chest 1V portable DATE OF EXAM: 04/23/2021 CLINICAL HISTORY: Difficulty breathing progress study. Postoperative cardiac surgery. TECHNIQUE: Single AP portable upright view of the chest is obtained. COMPARISON: Chest x-ray from one day earlier and older studies. FINDINGS: Interval removal of endotracheal and orogastric tubes. Stable right internal jugular [place]- Balbir catheter. Stable left basilar chest tube. Stable mediastinal drainage catheters. Overlying roman al wires and mediastinal clips along with left atrial appendage clip are all redemonstrated. Persistent cardiomegaly with atherosclerotic thoracic aorta. Chronic parenchymal changes with worseni ng bibasilar opacities. Osseous structures are intact. No pneumothorax is seen bilaterally. IMPRESSION: Interval extubation. Chronic parenchymal changes and mild cardiomegaly with worsening bib asilar atelectasis and/or developing infiltrate.
[2021-04-23] MEDS: IPRATROPIUM-ALBUTEROL 3 ML NEB INHALATION SCH ×4 (07:15→19:24)
[2021-04-23 07:27] LABS: ALT 21 U/L (4-49); AST 70 U/L (17-59); African American GFR (CKD) >90 (>60 ml/min/1.73 sqM); Albumin 3.1 g/dL (3.5-5.0); Alkaline Phosphatase 27 U/L (38-126); Anion Gap 2 mmol/L; Blood Urea Nitrogen 18 mg/dL (9-20); Calcium 8.3 mg/dL (8.4-10.2); Carbon Dioxide 25 mmol/L (22-30); Chloride 112 mmol/L (98-107); Glucose 126 mg/dL (74-99); Magnesium 2.2 mg/dL (1.6-2.3); Non-African American GFR(CKD) 78 (>60 ml/min/1.73 sqM); Potassium 4.5 mmol/L (3.5-5.1); Sodium 139 mmol/L (137-145); Total Protein 5.1 g/dL (6.3-8.2)
[2021-04-23] MEDS: HEPARIN SODIUM,PORCINE/PF 5,000 UNIT/0.5 ML SYRINGE SQ SCH ×2 (08:27→17:28)
[2021-04-23] MEDS: CLOPIDOGREL 75 MG TAB PO SCH (08:29)
[2021-04-23] MEDS: ASPIRIN 325 MG TAB PO SCH (08:29)
[2021-04-23] MEDS: ATORVASTATIN 40 MG TAB PO SCH (08:29)
--- NOTE | 2021-04-23 08:34 | P.PN ---
Subjective Progress Note Date: 04/23/21 Principal diagnosis: Triple-vessel coronary artery disease with ostial left main disease, unstable angina, preserved systolic function. 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 Vaccinated and boostered against covid POD #1 quintuple coronary artery bypass grafting using the left internal mammary artery to the second diagonal artery in a [id number] fashion, then to the mid to distal left anterior descending artery across a calcified plaque in an end to side fashion, left radial artery from the aorta to the ramus intermedius artery, reverse saphenous vein graft from the aorta to the posterior descending artery in a [id number] fashion, then to the posterior lateral branch of the right coronary artery in an end to side fashion, exclusion of the left atrial appe ndage using a 35 mm AtriClip, endoscopic harvesting of the left radial artery, endoscopic harvesting of the whole left greater saphenous vein and the right greater saphenous vein from the groin to the knee level, intraoperative transesophageal echocardiogram and epi-aortic scanning, graft flow measurements using the Opicos system Postoperative acute blood loss anemia and thrombocytopenia, expected given hemodilution and cardiopulmonary bypass pump The patient was seen and examined this morning sitting up in a recliner in the intensive care unit in no acute distress. He was successfully extubated last night at 22:20. He complains of postsurgical type pain which is controlled on current medication regimen, denies shortness of breath. Remains atrially paced at 80 bpm, underlying rhythm sinus rhythm in the low 60s. Hemodynamically stable on low-dose IV levo and IV nitro. Urine output has remained stable overnight. Right internal jugular [place]/Cordis, right radial arterial line, me diastinal/left pleural chest tubes all remaining present. No new concerns Objective - Vital Signs Vital signs: Vital Signs Temp 97.9 F 04/22/21 06:29 Pulse 80 04/23/21 07:28 Resp 16 04/23/21 07:00 BP 107/58 04/23/21 06:30 Pulse Ox 98 04/23/21 07:00 Intake & Output 04/22/21 04/23/21 04/23/21 18:59 06:59 18:59 Intake Total 376.323 0984.952 50 Output Total 3270 1113 78 Balance -2563.733 1018.952 -28 Weight 77.5 kg Intake: IV 703 2120 50 ACETAMINOPHEN IV (For NPO 100 ) 1,000 mg In Empty Bag 1 bag @ 400 mls/hr IVPB Q6HR DUSTIN Rx#:[id number] Albumin Human 5% 250 ml 1000 In Empty Bag 1 bag @ 250 mls/hr IVPB Q1HR PRN Rx#: [id number] CO/CI injection 320 Sodium Chloride 0.9% 1, 100 600 50 000 ml @ 50 mls/hr IV . Q20H DUSTIN Rx#:[id number] ceFAZolin 2 gm In Sodium 100 Chloride 0.9% 50 ml @ 100 mls/hr IVPB Q8HR DUSTIN Rx# :[id number] Intake, IV Titration 3.267 11.952 Amount Clevidipine Butyrate 25 3.267 mg In Empty Bag 1 bag @ 1 MG/HR 2 mls/hr IV .Q24H DUSTIN Rx#:[id number] Dexmedetomidine/0.9% NaCl 2.560 (Pmx) 400 mcg In Empty Bag 1 bag @ Titrate IV . Q0M DUSTIN Rx#:[id number] Insulin Regular 100 unit 9.392 In Sodium Chloride 0.9% 100 ml @ Per Protocol IV .Q0M DUSTIN Rx#:[id number] Output: Chest Tube Drainage 100 408 50 Chest Tube Left 40 126 20 Chest Tube Mediastinal 60 282 30 Drainage 5 55 Left Wrist 5 55 Urine 1365 650 28 Estimated Blood Loss 1800 Other: Voiding Method Indwelling Catheter ABP, PAP, CO, CI - Last Documented Arterial Blood Pressure 130/57 Pulmonary Artery Pressure 17/6 Cardiac Output 5 Cardiac Index 2.5 - Exam CONSTITUTIONAL: Appears comfortable, cooperative, no acute distress RESPIRATORY: Lungs sounds diminished bilaterally. Respirations even, nonlabored. Currently on 2 L nasal cannula with oxygen saturation 100%. Able to achieve 750-1000 mL on incentive spirometry. Strong cough. CARDIOVASCULAR: S1, S2 present. Regular rate and rhythm, sinus rhythm on telemetry. Sternum stable. Palpable peripheral pulses bilaterally. No edema present. No calf pain or tenderness noted. Heart hugger in place with patient demonstrating appropriate use. Antiembolism stockings, SCDs present. GASTROINTESTINAL: Abdomen soft, nontender, nondistended. Active bowel sounds present 4 quadrants. Tolerating clear liquids. Negative flatus GENITOURINARY: Montesinos present draining clear, yellow urine. Output overnight 35-70 mL per hour INTEGUMENTARY: Skin is warm and dry with evidence of good perfusion. Anterior chest incision well approximated and covered with dry intact dressing. Bilateral lower extremity EVH sites well approximated without redness or drainage. Left radial artery harvest site with USMAN drain present, minimal drainage, left hand is warm and pink NEUROLOGIC: Cranial nerves II through XII intact MUSKULOSKELETAL: Able to move all extremities, strength equal bilaterally, gait normal PSYCHIATRIC: Alert and oriented to person place and time, appropriate affect, intact judgment and insight INVASIVE LINES AND TUBES: Mediastinal/left pleural chest tubes present and connected to wall suction, no air leaks present. Mediastinal tube with 230 mL serosanguineous drainage overnight, 500 mL in the last 24 hours. Left pleural chest tube with 112 mL serosanguineous drainage overnight, 250 mL in the last 24 hours. Atrial epicardial pacemaker wires present, connected to generator, AAI mode with rate 80 bpm. Right internal jugular [place]/Cordis, right radial arterial line present. Last CO/CI 5.4/2.7, PA 20/9, CVP 6. - Allied health notes Allied health notes reviewed: nursing - Labs CBC & Chem 7: 04/23/21 04:10 04/23/21 04:10 Labs: Abnormal Lab Results - Last 24 Hours (Table) 04/21/21 04/22/21 04/22/21 Range/Units 08:24 08:47 11:37 WBC (3.8-10.6) k/uL RBC (4.30-5.90) m/uL Hgb (13.0-17.5) gm/dL Hct (39.0-53.0) % Plt Count (150-450) k/uL Neutrophils # (1.3-7.7) k/uL Lymphocytes # (1.0-4.8) k/uL PT (9.0-12.0) sec INR (<1.2) ABG pH 7.34 L (7.35-7.45) ABG pCO2 48 H 50 H (35-45) mmHg ABG pO2 241 H 281 H (83-108) mmHg ABG HCO3 28 H 27 H (21-25) mmol/L ABG Total CO2 29 H 29 H (19-24) mmol/L ABG O2 Saturation 99.7 H 99.9 H (94-97) % ABG Hematocrit (34.0-46.0) % ABG Potassium (3.4-4.5) mmol/L ABG Ionized Calcium (4.5-5.3) mg/dL ABG Glucose 100 H (75-99) mg/dL Hemoglobin (13.0-17.5) gm/dL Chloride (98-107) mmol/L Glucose (74-99) mg/dL POC Glucose (mg/dL) (75-99) mg/dL Calcium (8.4-10.2) mg/dL Magnesium (1.6-2.3) mg/dL AST (17-59) U/L Alkaline Phosphatase (38-126) U/L Total Protein (6.3-8.2) g/dL Albumin (3.5-5.0) g/dL Arterial Blood Potassium (3.4-4.5) mmol/L Arterial Blood Glucose 100 H (75-99) mg/dL Crossmatch See Detail 04/22/21 04/22/21 04/22/21 Range/Units 12:28 13:08 13:51 WBC (3.8-10.6) k/uL RBC (4.30-5.90) m/uL Hgb (13.0-17.5) gm/dL Hct (39.0-53.0) % Plt Count (150-450) k/uL Neutrophils # (1.3-7.7) k/uL Lymphocytes # (1.0-4.8) k/uL PT (9.0-12.0) sec INR (<1.2) ABG pH (7.35-7.45) ABG pCO2 (35-45) mmHg ABG pO2 >420 H 357 H 356 H (83-108) mmHg ABG HCO3 26 H 26 H 26 H (21-25) mmol/L ABG Total CO2 27 H 28 H 27 H (19-24) mmol/L ABG O2 Saturation 100.0 H 100.0 H 100.0 H (94-97) % ABG Hematocrit 33 L 32 L 31 L (34.0-46.0) % ABG Potassium 5.2 H 5.1 H (3.4-4.5) mmol/L ABG Ionized Calcium 4.3 L 4.3 L (4.5-5.3) mg/dL ABG Glucose (75-99) mg/dL Hemoglobin 10.8 L 10.6 L 10.2 L (13.0-17.5) gm/dL Chloride (98-107) mmol/L Glucose (74-99) mg/dL POC Glucose (mg/dL) (75-99) mg/dL Calcium (8.4-10.2) mg/dL Magnesium (1.6-2.3) mg/dL AST (17-59) U/L Alkaline Phosphatase (38-126) U/L Total Protein (6.3-8.2) g/dL Albumin (3.5-5.0) g/dL Arterial Blood Potassium 5.2 H 5.1 H (3.4-4.5) mmol/L Arterial Blood Glucose (75-99) mg/dL Crossmatch 04/22/21 04/22/21 04/22/21 Range/Units 14:21 15:00 15:06 WBC (3.8-10.6) k/uL RBC (4.30-5.90) m/uL Hgb (13.0-17.5) gm/dL Hct (39.0-53.0) % Plt Count (150-450) k/uL Neutrophils # (1.3-7.7) k/uL Lymphocytes # (1.0-4.8) k/uL PT (9.0-12.0) sec INR (<1.2) ABG pH 7.32 L 7.34 L (7.35-7.45) ABG pCO2 51 H 48 H (35-45) mmHg ABG pO2 328 H 165 H 400 H (83-108) mmHg ABG HCO3 26 H 27 H 26 H (21-25) mmol/L ABG Total CO2 27 H 28 H 27 H (19-24) mmol/L ABG O2 Saturation 100.0 H 99.4 H 100.0 H (94-97) % ABG Hematocrit 32 L 31 L 31 L (34.0-46.0) % ABG Potassium 5.0 H 5.0 H 5.0 H (3.4-4.5) mmol/L ABG Ionized Calcium 4.4 L 4.4 L (4.5-5.3) mg/dL ABG Glucose 104 H 108 H (75-99) mg/dL Hemoglobin 10.3 L 10.0 L 10.1 L (13.0-17.5) gm/dL Chloride (98-107) mmol/L Glucose (74-99) mg/dL POC Glucose (mg/dL) (75-99) mg/dL Calcium (8.4-10.2) mg/dL Magnesium (1.6-2.3) mg/dL AST (17-59) U/L Alkaline Phosphatase (38-126) U/L Total Protein (6.3-8.2) g/dL Albumin (3.5-5.0) g/dL Arterial Blood Potassium 5.0 H 5.0 H 5.0 H (3.4-4.5) mmol/L Arterial Blood Glucose 104 H 108 H (75-99) mg/dL Crossmatch 04/22/21 04/22/21 04/22/21 Range/Units 15:52 17:11 17:13 WBC (3.8-10.6) k/uL RBC 3.35 L (4.30-5.90) m/uL Hgb 10.9 L D (13.0-17.5) gm/dL Hct 32.8 L (39.0-53.0) % Plt Count 100 L (150-450) k/uL Neutrophils # (1.3-7.7) k/uL Lymphocytes # 0.7 L (1.0-4.8) k/uL PT (9.0-12.0) sec INR (<1.2) ABG pH (7.35-7.45) ABG pCO2 48 H (35-45) mmHg ABG pO2 262 H >400 H (83-108) mmHg ABG HCO3 26 H 26 H (21-25) mmol/L ABG Total CO2 27 H 28 H (19-24) mmol/L ABG O2 Saturation 100.0 H 100.0 H (94-97) % ABG Hematocrit 30 L (34.0-46.0) % ABG Potassium (3.4-4.5) mmol/L ABG Ionized Calcium (4.5-5.3) mg/dL ABG Glucose 106 H (75-99) mg/dL Hemoglobin 9.8 L (13.0-17.5) gm/dL Chloride (98-107) mmol/L Glucose (74-99) mg/dL POC Glucose (mg/dL) (75-99) mg/dL Calcium (8.4-10.2) mg/dL Magnesium (1.6-2.3) mg/dL AST (17-59) U/L Alkaline Phosphatase (38-126) U/L Total Protein (6.3-8.2) g/dL Albumin (3.5-5.0) g/dL Arterial Blood Potassium (3.4-4.5) mmol/L Arterial Blood Glucose 106 H (75-99) mg/dL Crossmatch 04/22/21 04/22/21 04/22/21 Range/Units 17:13 17:13 18:05 WBC (3.8-10.6) k/uL RBC (4.30-5.90) m/uL Hgb (13.0-17.5) gm/dL Hct (39.0-53.0) % Plt Count (150-450) k/uL Neutrophils # (1.3-7.7) k/uL Lymphocytes # (1.0-4.8) k/uL PT 12.4 H (9.0-12.0) sec INR 1.2 H (<1.2) ABG pH (7.35-7.45) ABG pCO2 (35-45) mmHg ABG pO2 (83-108) mmHg ABG HCO3 (21-25) mmol/L ABG Total CO2 (19-24) mmol/L ABG O2 Saturation (94-97) % ABG Hematocrit (34.0-46.0) % ABG Potassium (3.4-4.5) mmol/L ABG Ionized Calcium (4.5-5.3) mg/dL ABG Glucose (75-99) mg/dL Hemoglobin (13.0-17.5) gm/dL Chloride 110 H (98-107) mmol/L Glucose (74-99) mg/dL POC Glucose (mg/dL) 68 L (75-99) mg/dL Calcium 8.2 L (8.4-10.2) mg/dL Magnesium 2.6 H (1.6-2.3) mg/dL AST 66 H (17-59) U/L Alkaline Phosphatase 25 L (38-126) U/L Total Protein 4.8 L (6.3-8.2) g/dL Albumin 2.7 L (3.5-5.0) g/dL Arterial Blood Potassium (3.4-4.5) mmol/L Arterial Blood Glucose (75-99) mg/dL Crossmatch 04/22/21 04/22/21 04/22/21 Range/Units 18:07 19:10 19:14 WBC (3.8-10.6) k/uL RBC (4.30-5.90) m/uL Hgb (13.0-17.5) gm/dL Hct (39.0-53.0) % Plt Count (150-450) k/uL Neutrophils # (1.3-7.7) k/uL Lymphocytes # (1.0-4.8) k/uL PT (9.0-12.0) sec INR (<1.2) ABG pH (7.35-7.45) ABG pCO2 (35-45) mmHg ABG pO2 (83-108) mmHg ABG HCO3 (21-25) mmol/L ABG Total CO2 (19-24) mmol/L ABG O2 Saturation (94-97) % ABG Hematocrit (34.0-46.0) % ABG Potassium (3.4-4.5) mmol/L ABG Ionized Calcium (4.5-5.3) mg/dL ABG Glucose (75-99) mg/dL Hemoglobin (13.0-17.5) gm/dL Chloride (98-107) mmol/L Glucose (74-99) mg/dL POC Glucose (mg/dL) 116 H 70 L 123 H (75-99) mg/dL Calcium (8.4-10.2) mg/dL Magnesium (1.6-2.3) mg/dL AST (17-59) U/L Alkaline Phosphatase (38-126) U/L Total Protein (6.3-8.2) g/dL Albumin (3.5-5.0) g/dL Arterial Blood Potassium (3.4-4.5) mmol/L Arterial Blood Glucose (75-99) mg/dL Crossmatch 04/22/21 04/22/21 04/22/21 Range/Units 19:53 19:53 21:06 WBC 13.0 H (3.8-10.6) k/uL RBC 3.09 L (4.30-5.90) m/uL Hgb 10.0 L (13.0-17.5) gm/dL Hct 29.6 L (39.0-53.0) % Plt Count 123 L (150-450) k/uL Neutrophils # 11.4 H (1.3-7.7) k/uL Lymphocytes # 0.7 L (1.0-4.8) k/uL PT (9.0-12.0) sec INR (<1.2) ABG pH (7.35-7.45) ABG pCO2 (35-45) mmHg ABG pO2 (83-108) mmHg ABG HCO3 (21-25) mmol/L ABG Total CO2 (19-24) mmol/L ABG O2 Saturation (94-97) % ABG Hematocrit (34.0-46.0) % ABG Potassium (3.4-4.5) mmol/L ABG Ionized Calcium (4.5-5.3) mg/dL ABG Glucose (75-99) mg/dL Hemoglobin (13.0-17.5) gm/dL Chloride (98-107) mmol/L Glucose (74-99) mg/dL POC Glucose (mg/dL) 120 H 123 H (75-99) mg/dL Calcium (8.4-10.2) mg/dL Magnesium (1.6-2.3) mg/dL AST (17-59) U/L Alkaline Phosphatase (38-126) U/L Total Protein (6.3-8.2) g/dL Albumin (3.5-5.0) g/dL Arterial Blood Potassium (3.4-4.5) mmol/L Arterial Blood Glucose (75-99) mg/dL Crossmatch 04/22/21 04/22/21 04/22/21 Range/Units 21:53 21:55 23:05 WBC 10.8 H (3.8-10.6) k/uL RBC 2.86 L (4.30-5.90) m/uL Hgb 9.0 L (13.0-17.5) gm/dL Hct 27.3 L (39.0-53.0) % Plt Count 109 L (150-450) k/uL Neutrophils # 9.9 H (1.3-7.7) k/uL Lymphocytes # 0.4 L (1.0-4.8) k/uL PT (9.0-12.0) sec INR (<1.2) ABG pH (7.35-7.45) ABG pCO2 (35-45) mmHg ABG pO2 123 H (83-108) mmHg ABG HCO3 (21-25) mmol/L ABG Total CO2 25 H (19-24) mmol/L ABG O2 Saturation 99.0 H (94-97) % ABG Hematocrit (34.0-46.0) % ABG Potassium (3.4-4.5) mmol/L ABG Ionized Calcium (4.5-5.3) mg/dL ABG Glucose (75-99) mg/dL Hemoglobin (13.0-17.5) gm/dL Chloride (98-107) mmol/L Glucose (74-99) mg/dL POC Glucose (mg/dL) 126 H (75-99) mg/dL Calcium (8.4-10.2) mg/dL Magnesium (1.6-2.3) mg/dL AST (17-59) U/L Alkaline Phosphatase (38-126) U/L Total Protein (6.3-8.2) g/dL Albumin (3.5-5.0) g/dL Arterial Blood Potassium (3.4-4.5) mmol/L Arterial Blood Glucose (75-99) mg/dL Crossmatch 04/22/21 04/23/21 04/23/21 Range/Units 23:07 00:23 01:06 WBC (3.8-10.6) k/uL RBC (4.30-5.90) m/uL Hgb (13.0-17.5) gm/dL Hct (39.0-53.0) % Plt Count (150-450) k/uL Neutrophils # (1.3-7.7) k/uL Lymphocytes # (1.0-4.8) k/uL PT (9.0-12.0) sec INR (<1.2) ABG pH (7.35-7.45) ABG pCO2 (35-45) mmHg ABG pO2 (83-108) mmHg ABG HCO3 (21-25) mmol/L ABG Total CO2 (19-24) mmol/L ABG O2 Saturation (94-97) % ABG Hematocrit (34.0-46.0) % ABG Potassium (3.4-4.5) mmol/L ABG Ionized Calcium (4.5-5.3) mg/dL ABG Glucose (75-99) mg/dL Hemoglobin (13.0-17.5) gm/dL Chloride (98-107) mmol/L Glucose (74-99) mg/dL POC Glucose (mg/dL) 138 H 138 H 139 H (75-99) mg/dL Calcium (8.4-10.2) mg/dL Magnesium (1.6-2.3) mg/dL AST (17-59) U/L Alkaline Phosphatase (38-126) U/L Total Protein (6.3-8.2) g/dL Albumin (3.5-5.0) g/dL Arterial Blood Potassium (3.4-4.5) mmol/L Arterial Blood Glucose (75-99) mg/dL Crossmatch 04/23/21 04/23/21 04/23/21 Range/Units 02:09 03:03 04:08 WBC (3.8-10.6) k/uL RBC (4.30-5.90) m/uL Hgb (13.0-17.5) gm/dL Hct (39.0-53.0) % Plt Count (150-450) k/uL Neutrophils # (1.3-7.7) k/uL Lymphocytes # (1.0-4.8) k/uL PT (9.0-12.0) sec INR (<1.2) ABG pH (7.35-7.45) ABG pCO2 (35-45) mmHg ABG pO2 (83-108) mmHg ABG HCO3 (21-25) mmol/L ABG Total CO2 (19-24) mmol/L ABG O2 Saturation (94-97) % ABG Hematocrit (34.0-46.0) % ABG Potassium (3.4-4.5) mmol/L ABG Ionized Calcium (4.5-5.3) mg/dL ABG Glucose (75-99) mg/dL Hemoglobin (13.0-17.5) gm/dL Chloride (98-107) mmol/L Glucose (74-99) mg/dL POC Glucose (mg/dL) 135 H 141 H 142 H (75-99) mg/dL Calcium (8.4-10.2) mg/dL Magnesium (1.6-2.3) mg/dL AST (17-59) U/L Alkaline Phosphatase (38-126) U/L Total Protein (6.3-8.2) g/dL Albumin (3.5-5.0) g/dL Arterial Blood Potassium (3.4-4.5) mmol/L Arterial Blood Glucose (75-99) mg/dL Crossmatch 04/23/21 04/23/21 04/23/21 Range/Units 04:10 04:10 05:04 WBC (3.8-10.6) k/uL RBC 2.82 L (4.30-5.90) m/uL Hgb 9.1 L (13.0-17.5) gm/dL Hct 27.3 L (39.0-53.0) % Plt Count 112 L (150-450) k/uL Neutrophils # 8.0 H (1.3-7.7) k/uL Lymphocytes # 0.6 L (1.0-4.8) k/uL PT (9.0-12.0) sec INR (<1.2) ABG pH (7.35-7.45) ABG pCO2 (35-45) mmHg ABG pO2 (83-108) mmHg ABG HCO3 (21-25) mmol/L ABG Total CO2 (19-24) mmol/L ABG O2 Saturation (94-97) % ABG Hematocrit (34.0-46.0) % ABG Potassium (3.4-4.5) mmol/L ABG Ionized Calcium (4.5-5.3) mg/dL ABG Glucose (75-99) mg/dL Hemoglobin (13.0-17.5) gm/dL Chloride 112 H (98-107) mmol/L Glucose 126 H (74-99) mg/dL POC Glucose (mg/dL) 131 H (75-99) mg/dL Calcium 8.3 L (8.4-10.2) mg/dL Magnesium (1.6-2.3) mg/dL AST 70 H (17-59) U/L Alkaline Phosphatase 27 L (38-126) U/L Total Protein 5.1 L (6.3-8.2) g/dL Albumin 3.1 L (3.5-5.0) g/dL Arterial Blood Potassium (3.4-4.5) mmol/L Arterial Blood Glucose (75-99) mg/dL Crossmatch 04/23/21 Range/Units 06:31 WBC (3.8-10.6) k/uL RBC (4.30-5.90) m/uL Hgb (13.0-17.5) gm/dL Hct (39.0-53.0) % Plt Count (150-450) k/uL Neutrophils # (1.3-7.7) k/uL Lymphocytes # (1.0-4.8) k/uL PT (9.0-12.0) sec INR (<1.2) ABG pH (7.35-7.45) ABG pCO2 (35-45) mmHg ABG pO2 (83-108) mmHg ABG HCO3 (21-25) mmol/L ABG Total CO2 (19-24) mmol/L ABG O2 Saturation (94-97) % ABG Hematocrit (34.0-46.0) % ABG Potassium (3.4-4.5) mmol/L ABG Ionized Calcium (4.5-5.3) mg/dL ABG Glucose (75-99) mg/dL Hemoglobin (13.0-17.5) gm/dL Chloride (98-107) mmol/L Glucose (74-99) mg/dL POC Glucose (mg/dL) 147 H (75-99) mg/dL Calcium (8.4-10.2) mg/dL Magnesium (1.6-2.3) mg/dL AST (17-59) U/L Alkaline Phosphatase (38-126) U/L Total Protein (6.3-8.2) g/dL Albumin (3.5-5.0) g/dL Arterial Blood Potassium (3.4-4.5) mmol/L Arterial Blood Glucose (75-99) mg/dL Crossmatch - Imaging and Cardiology Chest x-ray: report reviewed, image reviewed Assessment and Plan Assessment: 1. Triple-vessel coronary artery disease with ostial left main disease, unstable angina, status post 5 vessel CABG 2. Preserved systolic function 3. Hyperlipidemia, recently started on statin 4. History of traumatic left-sided pneumothorax from a fall 2 with pleural chest tube placement each time 5. Multiple orthopedic surgeries 6. MRSA/E. coli infection to left Achilles heel after surgery 7. Family history of coronary artery disease with grandparents from myocardial infarction in their 70s and 80s 8. Vaccinated and boostered against Covid 9. Postoperative acute blood loss anemia and thrombocytopenia Plan: 1. Continue aspirin, statin, Plavix, low dose beta lelia. Will increase beta lelia as tolerated. Wean levo as tolerated. 2. Will discontinue IV nitro. Will start oral calcium channel lelia for radial artery spasm prophylaxis with hold parameters 3. Wean O2 as tolerated. Encourage incentive spirometry use 10 times every hour while awake. Bronchodilators per pulmonology 4. Increase activity, ambulate as tolerated. PT/OT/cardiac rehab consulted 5. Will monitor daily labs and x-rays. Electrolyte replacement per protocol 6. Pain control with current medication regimen 7. Insulin management per primary care service. Patient is not diabetic, preoperative hemoglobin A1c 5.2% 8. GI/DVT prophylaxis 9. Will discontinue left radial USMAN drain, will discontinue [place] and connect Cordis to continuous CVP monitoring 10. Continue mediastinal/left pleural chest tubes for another 24 hours 11. Continue Montesinos catheter for another 24 hours for strict accurate intake and output. Daily weights 12. More recommendations to follow Time with Patient: Greater than 30
[2021-04-23] MEDS ORDERED: METOPROLOL TARTRATE 12.5 MG TAB PO SCH (09:00)
[2021-04-23] MEDS ORDERED: bisacodyL 10 MG SUPP RECTAL PRN (09:00)
[2021-04-23] MEDS ORDERED: PANTOPRAZOLE 40 MG/10 ML VIAL IVP SCH (09:00)
[2021-04-23] MEDS ORDERED: MAGNESIUM HYDROXIDE 2,400 MG/10 ML CUP PO PRN (09:00)
[2021-04-23] MEDS ORDERED: ACETAMINOPHEN TAB 325 MG TAB PO PRN (09:06)
[2021-04-23 09:08] LABS: Glucose,Whole Blood 132 mg/dL (75-99)
--- NOTE | 2021-04-23 09:43 | P.PN ---
Subjective Progress Note Date: 04/23/21 This is a very pleasant 65-year-old male patient with a known history of lower extremity peripheral arterial disease, hypertension, hyperlipidemia who been having intermittent episodes of chest discomfort. He was brought in electively today for cardiac catheterization via the right radial approach with Dr. Lu. He was found to have extremely calcified right and left coronary systems. Critical disease involving the RCA. Critical disease involving the left main artery. He is recommended coronary artery bypass grafting. Computed tomography scan of the chest revealed mild streak atelectasis of the right lung base. The patient is a lifelong nonsmoker. No history of pulmonary disease. He is seen in consultation on the selective care unit. He is maintaining O2 saturations in the 90s on room air. No IV fluids. Carotid Dopplers revealed a slightly elevated peak systolic velocity in the right ICA presenting a moderate 50-70% stenosis. X-ray revealed some chronic appearing interstitial changes with scarring or atelectasis of the lower lobes. No acute pulmonary process. Old left-sided rib fracture deformities noted. White count 6.8. Hemoglobin 14.1. Sodium 139. Potassium 4.2. Creatinine 0.93. Glucose 107. Coronavirus by PCR not detected on 04/19/2021. Progress note dated 04/21/2021. 65-year-old male, seen yesterday in consultation. The patient is scheduled for bypass grafting tomorrow. Clinically he is doing well. I explained our role in the process including extubating him from mechanical ventilation as soon as possible after the surgery, and also, following along throughout his hospitalization, to make sure, that his lungs remain healthy. Today, he is seen. He is on room air. Is not receiving any IV fluids. He is a lifelong nonsmoker, and has no history of any lung disease. Progress note dated 04/22/2021. 65-year-old male, postop day #0, status post 5 vessel bypass grafting. The patient just came back to the intensive care unit, room 267. Currently, he's on nitroglycerin at 5 mcg/m, propofol at 20 mcg/kg/m, and saline at 50 mL an hour. The surgery was done by Dr. Mckenzie. The patient is on the ventilator obviously, with settings of volume assist control, rate 12, tidal volume 450, FiO2 100% and PEEP of 5. The last blood gases done in the operating room show a PaO2 of 262, pCO2 of 45, pH is 7.36. The patient had excellent lung function. He is a lifelong nonsmoker. He should wean pretty quickly this afternoon/this evening. Post-ICU blood gases have not yet been done. Also, chest x-ray has not been done as yet. The patient is seen today 04/23/2021 in follow-up in the intensive care unit. Post operative day #1. He did undergo quintuple coronary artery bypass grafting using the FERRARA to the second diagonal artery and then to the mid and distal left anterior descending arteries, left radial artery to the ramus intermedius, rev erse saphenous vein graft to the posterior descending artery and the posterior lateral branch of the right coronary artery. Currently sitting up in a chair at the bedside. He was successfully extubated approximately 22:20 last evening. He is currently maintaining O2 saturations in the 90s on 2 L/m per nasal cannula. He is on nitroglycerin drip at 5 mg/m. Insulin drip at 1.5 units per hour. Req uired some pressor support but then norepinephrine is currently off.white count 9.1. Hemoglobin 9.1. Platelets 112. Sodium 139. Potassium 4.5. Creatinine 1.0. Glucose 126. chest x-ray shows chronic parenchymal changes and mild cardiomegaly with worsening bibasilar atelectasis/infiltrate. He continues to work well with the incentive spirometer. Remains on bronchodilators. Heparin for DVT prophylaxis. Right IJ Sumner-Balbir catheter in place.right radial arterial line in place. Mediastinal and left chest tube are in place. AV pacer wires in place.cardiac output 5.4. Cardiac index 2.7. PA pressure 20/9. CVP 6. Remains on normal saline at 50 MLS per hour. Currently in a -1.5 L balance. Objective - Vital Signs Vital signs: Vital Signs Temp 97.9 F 04/22/21 06:29 Pulse 80 04/23/21 07:28 Resp 16 04/23/21 07:00 BP 107/58 04/23/21 06:30 Pulse Ox 98 04/23/21 07:00 Intake & Output 04/22/21 04/23/21 04/23/21 18:59 06:59 18:59 Intake Total 333.298 0210.952 208.1 Output Total 3270 1113 78 Balance -2563.733 1018.952 130.1 Weight 77.5 kg Intake: IV 703 2120 50 ACETAMINOPHEN IV (For NPO 100 ) 1,000 mg In Empty Bag 1 bag @ 400 mls/hr IVPB Q6HR DUSTIN Rx#:[id number] Albumin Human 5% 250 ml 1000 In Empty Bag 1 bag @ 250 mls/hr IVPB Q1HR PRN Rx#: [id number] CO/CI injection 320 Sodium Chloride 0.9% 1, 100 600 50 000 ml @ 50 mls/hr IV . Q20H DUSTIN Rx#:[id number] ceFAZolin 2 gm In Sodium 100 Chloride 0.9% 50 ml @ 100 mls/hr IVPB Q8HR DUSTIN Rx# :[id number] Intake, IV Titration 3.267 11.952 158.1 Amount Clevidipine Butyrate 25 3.267 mg In Empty Bag 1 bag @ 1 MG/HR 2 mls/hr IV .Q24H DUSTIN Rx#:[id number] Dexmedetomidine/0.9% NaCl 2.560 (Pmx) 400 mcg In Empty Bag 1 bag @ Titrate IV . Q0M DUSTIN Rx#:[id number] Insulin Regular 100 unit 9.392 In Sodium Chloride 0.9% 100 ml @ Per Protocol IV .Q0M DUSTIN Rx#:[id number] Norepinephrine 4 mg In 158.1 Sodium Chloride 0.9% 250 ml @ 0.05 MCG/KG/MIN 15. 602 mls/hr IV .[id number] DUSTIN Rx#:[id number] Output: Chest Tube Drainage 100 408 50 Chest Tube Left 40 126 20 Chest Tube Mediastinal 60 282 30 Drainage 5 55 Left Wrist 5 55 Urine 1365 650 28 Estimated Blood Loss 1800 Other: Voiding Method Indwelling Catheter ABP, PAP, CO, CI - Last Documented Arterial Blood Pressure 130/57 Pulmonary Artery Pressure 17/6 Cardiac Output 5 Cardiac Index 2.5 - Exam GENERAL EXAM: Alert, very pleasant 65-year-old gentleman Up in a chair at the bedside, on 2 L nasal cannula, fairly comfortable in no apparent distress. HEAD: Normocephalic. EYES: Normal reaction of pupils, equal size. NOSE: Clear with pink turbinates. THROAT: No erythema or exudates. NECK: Right IJ Sumner-Balbir catheter in place.No masses, no JVD. CHEST: Sternal dressing dry and intact, hard hugger in place. Mediastinal and left chest tubes in place. AV pacing wires in place. LUNGS: Equal air entry with crackles in the bilateral basess. CVS: S1 and S2 normal with no audible murmur, regular rhythm. ABDOMEN: No hepatosplenomegaly, normal bowel sounds, no guarding or rigidity. SPINE: No scoliosis or deformity SKIN: No rashes CENTRAL NERVOUS SYSTEM: No focal deficits, tone is normal in all 4 extremities. EXTREMITIES: Right radial arterial line in placeThere is no peripheral edema. No clubbing, no cyanosis. Peripheral pulses are intact. - Labs CBC & Chem 7: 04/23/21 04:10 04/23/21 04:10 Labs: Abnormal Lab Results - Last 24 Hours (Table) 04/21/21 04/22/21 04/22/21 Range/Units 08:24 08:47 11:37 WBC (3.8-10.6) k/uL RBC (4.30-5.90) m/uL Hgb (13.0-17.5) gm/dL Hct (39.0-53.0) % Plt Count (150-450) k/uL Neutrophils # (1.3-7.7) k/uL Lymphocytes # (1.0-4.8) k/uL PT (9.0-12.0) sec INR (<1.2) ABG pH 7.34 L (7.35-7.45) ABG pCO2 48 H 50 H (35-45) mmHg ABG pO2 241 H 281 H (83-108) mmHg ABG HCO3 28 H 27 H (21-25) mmol/L ABG Total CO2 29 H 29 H (19-24) mmol/L ABG O2 Saturation 99.7 H 99.9 H (94-97) % ABG Hematocrit (34.0-46.0) % ABG Potassium (3.4-4.5) mmol/L ABG Ionized Calcium (4.5-5.3) mg/dL ABG Glucose 100 H (75-99) mg/dL Hemoglobin (13.0-17.5) gm/dL Chloride (98-107) mmol/L Glucose (74-99) mg/dL POC Glucose (mg/dL) (75-99) mg/dL Calcium (8.4-10.2) mg/dL Magnesium (1.6-2.3) mg/dL AST (17-59) U/L Alkaline Phosphatase (38-126) U/L Total Protein (6.3-8.2) g/dL Albumin (3.5-5.0) g/dL Arterial Blood Potassium (3.4-4.5) mmol/L Arterial Blood Glucose 100 H (75-99) mg/dL Crossmatch See Detail 04/22/21 04/22/21 04/22/21 Range/Units 12:28 13:08 13:51 WBC (3.8-10.6) k/uL RBC (4.30-5.90) m/uL Hgb (13.0-17.5) gm/dL Hct (39.0-53.0) % Plt Count (150-450) k/uL Neutrophils # (1.3-7.7) k/uL Lymphocytes # (1.0-4.8) k/uL PT (9.0-12.0) sec INR (<1.2) ABG pH (7.35-7.45) ABG pCO2 (35-45) mmHg ABG pO2 >420 H 357 H 356 H (83-108) mmHg ABG HCO3 26 H 26 H 26 H (21-25) mmol/L ABG Total CO2 27 H 28 H 27 H (19-24) mmol/L ABG O2 Saturation 100.0 H 100.0 H 100.0 H (94-97) % ABG Hematocrit 33 L 32 L 31 L (34.0-46.0) % ABG Potassium 5.2 H 5.1 H (3.4-4.5) mmol/L ABG Ionized Calcium 4.3 L 4.3 L (4.5-5.3) mg/dL ABG Glucose (75-99) mg/dL Hemoglobin 10.8 L 10.6 L 10.2 L (13.0-17.5) gm/dL Chloride (98-107) mmol/L Glucose (74-99) mg/dL POC Glucose (mg/dL) (75-99) mg/dL Calcium (8.4-10.2) mg/dL Magnesium (1.6-2.3) mg/dL AST (17-59) U/L Alkaline Phosphatase (38-126) U/L Total Protein (6.3-8.2) g/dL Albumin (3.5-5.0) g/dL Arterial Blood Potassium 5.2 H 5.1 H (3.4-4.5) mmol/L Arterial Blood Glucose (75-99) mg/dL Crossmatch 04/22/21 04/22/21 04/22/21 Range/Units 14:21 15:00 15:06 WBC (3.8-10.6) k/uL RBC (4.30-5.90) m/uL Hgb (13.0-17.5) gm/dL Hct (39.0-53.0) % Plt Count (150-450) k/uL Neutrophils # (1.3-7.7) k/uL Lymphocytes # (1.0-4.8) k/uL PT (9.0-12.0) sec INR (<1.2) ABG pH 7.32 L 7.34 L (7.35-7.45) ABG pCO2 51 H 48 H (35-45) mmHg ABG pO2 328 H 165 H 400 H (83-108) mmHg ABG HCO3 26 H 27 H 26 H (21-25) mmol/L ABG Total CO2 27 H 28 H 27 H (19-24) mmol/L ABG O2 Saturation 100.0 H 99.4 H 100.0 H (94-97) % ABG Hematocrit 32 L 31 L 31 L (34.0-46.0) % ABG Potassium 5.0 H 5.0 H 5.0 H (3.4-4.5) mmol/L ABG Ionized Calcium 4.4 L 4.4 L (4.5-5.3) mg/dL ABG Glucose 104 H 108 H (75-99) mg/dL Hemoglobin 10.3 L 10.0 L 10.1 L (13.0-17.5) gm/dL Chloride (98-107) mmol/L Glucose (74-99) mg/dL POC Glucose (mg/dL) (75-99) mg/dL Calcium (8.4-10.2) mg/dL Magnesium (1.6-2.3) mg/dL AST (17-59) U/L Alkaline Phosphatase (38-126) U/L Total Protein (6.3-8.2) g/dL Albumin (3.5-5.0) g/dL Arterial Blood Potassium 5.0 H 5.0 H 5.0 H (3.4-4.5) mmol/L Arterial Blood Glucose 104 H 108 H (75-99) mg/dL Crossmatch 04/22/21 04/22/21 04/22/21 Range/Units 15:52 17:11 17:13 WBC (3.8-10.6) k/uL RBC 3.35 L (4.30-5.90) m/uL Hgb 10.9 L D (13.0-17.5) gm/dL Hct 32.8 L (39.0-53.0) % Plt Count 100 L (150-450) k/uL Neutrophils # (1.3-7.7) k/uL Lymphocytes # 0.7 L (1.0-4.8) k/uL PT (9.0-12.0) sec INR (<1.2) ABG pH (7.35-7.45) ABG pCO2 48 H (35-45) mmHg ABG pO2 262 H >400 H (83-108) mmHg ABG HCO3 26 H 26 H (21-25) mmol/L ABG Total CO2 27 H 28 H (19-24) mmol/L ABG O2 Saturation 100.0 H 100.0 H (94-97) % ABG Hematocrit 30 L (34.0-46.0) % ABG Potassium (3.4-4.5) mmol/L ABG Ionized Calcium (4.5-5.3) mg/dL ABG Glucose 106 H (75-99) mg/dL Hemoglobin 9.8 L (13.0-17.5) gm/dL Chloride (98-107) mmol/L Glucose (74-99) mg/dL POC Glucose (mg/dL) (75-99) mg/dL Calcium (8.4-10.2) mg/dL Magnesium (1.6-2.3) mg/dL AST (17-59) U/L Alkaline Phosphatase (38-126) U/L Total Protein (6.3-8.2) g/dL Albumin (3.5-5.0) g/dL Arterial Blood Potassium (3.4-4.5) mmol/L Arterial Blood Glucose 106 H (75-99) mg/dL Crossmatch 04/22/21 04/22/21 04/22/21 Range/Units 17:13 17:13 18:05 WBC (3.8-10.6) k/uL RBC (4.30-5.90) m/uL Hgb (13.0-17.5) gm/dL Hct (39.0-53.0) % Plt Count (150-450) k/uL Neutrophils # (1.3-7.7) k/uL Lymphocytes # (1.0-4.8) k/uL PT 12.4 H (9.0-12.0) sec INR 1.2 H (<1.2) ABG pH (7.35-7.45) ABG pCO2 (35-45) mmHg ABG pO2 (83-108) mmHg ABG HCO3 (21-25) mmol/L ABG Total CO2 (19-24) mmol/L ABG O2 Saturation (94-97) % ABG Hematocrit (34.0-46.0) % ABG Potassium (3.4-4.5) mmol/L ABG Ionized Calcium (4.5-5.3) mg/dL ABG Glucose (75-99) mg/dL Hemoglobin (13.0-17.5) gm/dL Chloride 110 H (98-107) mmol/L Glucose (74-99) mg/dL POC Glucose (mg/dL) 68 L (75-99) mg/dL Calcium 8.2 L (8.4-10.2) mg/dL Magnesium 2.6 H (1.6-2.3) mg/dL AST 66 H (17-59) U/L Alkaline Phosphatase 25 L (38-126) U/L Total Protein 4.8 L (6.3-8.2) g/dL Albumin 2.7 L (3.5-5.0) g/dL Arterial Blood Potassium (3.4-4.5) mmol/L Arterial Blood Glucose (75-99) mg/dL Crossmatch 04/22/21 04/22/21 04/22/21 Range/Units 18:07 19:10 19:14 WBC (3.8-10.6) k/uL RBC (4.30-5.90) m/uL Hgb (13.0-17.5) gm/dL Hct (39.0-53.0) % Plt Count (150-450) k/uL Neutrophils # (1.3-7.7) k/uL Lymphocytes # (1.0-4.8) k/uL PT (9.0-12.0) sec INR (<1.2) ABG pH (7.35-7.45) ABG pCO2 (35-45) mmHg ABG pO2 (83-108) mmHg ABG HCO3 (21-25) mmol/L ABG Total CO2 (19-24) mmol/L ABG O2 Saturation (94-97) % ABG Hematocrit (34.0-46.0) % ABG Potassium (3.4-4.5) mmol/L ABG Ionized Calcium (4.5-5.3) mg/dL ABG Glucose (75-99) mg/dL Hemoglobin (13.0-17.5) gm/dL Chloride (98-107) mmol/L Glucose (74-99) mg/dL POC Glucose (mg/dL) 116 H 70 L 123 H (75-99) mg/dL Calcium (8.4-10.2) mg/dL Magnesium (1.6-2.3) mg/dL AST (17-59) U/L Alkaline Phosphatase (38-126) U/L Total Protein (6.3-8.2) g/dL Albumin (3.5-5.0) g/dL Arterial Blood Potassium (3.4-4.5) mmol/L Arterial Blood Glucose (75-99) mg/dL Crossmatch 04/22/21 04/22/21 04/22/21 Range/Units 19:53 19:53 21:06 WBC 13.0 H (3.8-10.6) k/uL RBC 3.09 L (4.30-5.90) m/uL Hgb 10.0 L (13.0-17.5) gm/dL Hct 29.6 L (39.0-53.0) % Plt Count 123 L (150-450) k/uL Neutrophils # 11.4 H (1.3-7.7) k/uL Lymphocytes # 0.7 L (1.0-4.8) k/uL PT (9.0-12.0) sec INR (<1.2) ABG pH (7.35-7.45) ABG pCO2 (35-45) mmHg ABG pO2 (83-108) mmHg ABG HCO3 (21-25) mmol/L ABG Total CO2 (19-24) mmol/L ABG O2 Saturation (94-97) % ABG Hematocrit (34.0-46.0) % ABG Potassium (3.4-4.5) mmol/L ABG Ionized Calcium (4.5-5.3) mg/dL ABG Glucose (75-99) mg/dL Hemoglobin (13.0-17.5) gm/dL Chloride (98-107) mmol/L Glucose (74-99) mg/dL POC Glucose (mg/dL) 120 H 123 H (75-99) mg/dL Calcium (8.4-10.2) mg/dL Magnesium (1.6-2.3) mg/dL AST (17-59) U/L Alkaline Phosphatase (38-126) U/L Total Protein (6.3-8.2) g/dL Albumin (3.5-5.0) g/dL Arterial Blood Potassium (3.4-4.5) mmol/L Arterial Blood Glucose (75-99) mg/dL Crossmatch 04/22/21 04/22/21 04/22/21 Range/Units 21:53 21:55 23:05 WBC 10.8 H (3.8-10.6) k/uL RBC 2.86 L (4.30-5.90) m/uL Hgb 9.0 L (13.0-17.5) gm/dL Hct 27.3 L (39.0-53.0) % Plt Count 109 L (150-450) k/uL Neutrophils # 9.9 H (1.3-7.7) k/uL Lymphocytes # 0.4 L (1.0-4.8) k/uL PT (9.0-12.0) sec INR (<1.2) ABG pH (7.35-7.45) ABG pCO2 (35-45) mmHg ABG pO2 123 H (83-108) mmHg ABG HCO3 (21-25) mmol/L ABG Total CO2 25 H (19-24) mmol/L ABG O2 Saturation 99.0 H (94-97) % ABG Hematocrit (34.0-46.0) % ABG Potassium (3.4-4.5) mmol/L ABG Ionized Calcium (4.5-5.3) mg/dL ABG Glucose (75-99) mg/dL Hemoglobin (13.0-17.5) gm/dL Chloride (98-107) mmol/L Glucose (74-99) mg/dL POC Glucose (mg/dL) 126 H (75-99) mg/dL Calcium (8.4-10.2) mg/dL Magnesium (1.6-2.3) mg/dL AST (17-59) U/L Alkaline Phosphatase (38-126) U/L Total Protein (6.3-8.2) g/dL Albumin (3.5-5.0) g/dL Arterial Blood Potassium (3.4-4.5) mmol/L Arterial Blood Glucose (75-99) mg/dL Crossmatch 04/22/21 04/23/21 04/23/21 Range/Units 23:07 00:23 01:06 WBC (3.8-10.6) k/uL RBC (4.30-5.90) m/uL Hgb (13.0-17.5) gm/dL Hct (39.0-53.0) % Plt Count (150-450) k/uL Neutrophils # (1.3-7.7) k/uL Lymphocytes # (1.0-4.8) k/uL PT (9.0-12.0) sec INR (<1.2) ABG pH (7.35-7.45) ABG pCO2 (35-45) mmHg ABG pO2 (83-108) mmHg ABG HCO3 (21-25) mmol/L ABG Total CO2 (19-24) mmol/L ABG O2 Saturation (94-97) % ABG Hematocrit (34.0-46.0) % ABG Potassium (3.4-4.5) mmol/L ABG Ionized Calcium (4.5-5.3) mg/dL ABG Glucose (75-99) mg/dL Hemoglobin (13.0-17.5) gm/dL Chloride (98-107) mmol/L Glucose (74-99) mg/dL POC Glucose (mg/dL) 138 H 138 H 139 H (75-99) mg/dL Calcium (8.4-10.2) mg/dL Magnesium (1.6-2.3) mg/dL AST (17-59) U/L Alkaline Phosphatase (38-126) U/L Total Protein (6.3-8.2) g/dL Albumin (3.5-5.0) g/dL Arterial Blood Potassium (3.4-4.5) mmol/L Arterial Blood Glucose (75-99) mg/dL Crossmatch 04/23/21 04/23/21 04/23/21 Range/Units 02:09 03:03 04:08 WBC (3.8-10.6) k/uL RBC (4.30-5.90) m/uL Hgb (13.0-17.5) gm/dL Hct (39.0-53.0) % Plt Count (150-450) k/uL Neutrophils # (1.3-7.7) k/uL Lymphocytes # (1.0-4.8) k/uL PT (9.0-12.0) sec INR (<1.2) ABG pH (7.35-7.45) ABG pCO2 (35-45) mmHg ABG pO2 (83-108) mmHg ABG HCO3 (21-25) mmol/L ABG Total CO2 (19-24) mmol/L ABG O2 Saturation (94-97) % ABG Hematocrit (34.0-46.0) % ABG Potassium (3.4-4.5) mmol/L ABG Ionized Calcium (4.5-5.3) mg/dL ABG Glucose (75-99) mg/dL Hemoglobin (13.0-17.5) gm/dL Chloride (98-107) mmol/L Glucose (74-99) mg/dL POC Glucose (mg/dL) 135 H 141 H 142 H (75-99) mg/dL Calcium (8.4-10.2) mg/dL Magnesium (1.6-2.3) mg/dL AST (17-59) U/L Alkaline Phosphatase (38-126) U/L Total Protein (6.3-8.2) g/dL Albumin (3.5-5.0) g/dL Arterial Blood Potassium (3.4-4.5) mmol/L Arterial Blood Glucose (75-99) mg/dL Crossmatch 04/23/21 04/23/21 04/23/21 Range/Units 04:10 04:10 05:04 WBC (3.8-10.6) k/uL RBC 2.82 L (4.30-5.90) m/uL Hgb 9.1 L (13.0-17.5) gm/dL Hct 27.3 L (39.0-53.0) % Plt Count 112 L (150-450) k/uL Neutrophils # 8.0 H (1.3-7.7) k/uL Lymphocytes # 0.6 L (1.0-4.8) k/uL PT (9.0-12.0) sec INR (<1.2) ABG pH (7.35-7.45) ABG pCO2 (35-45) mmHg ABG pO2 (83-108) mmHg ABG HCO3 (21-25) mmol/L ABG Total CO2 (19-24) mmol/L ABG O2 Saturation (94-97) % ABG Hematocrit (34.0-46.0) % ABG Potassium (3.4-4.5) mmol/L ABG Ionized Calcium (4.5-5.3) mg/dL ABG Glucose (75-99) mg/dL Hemoglobin (13.0-17.5) gm/dL Chloride 112 H (98-107) mmol/L Glucose 126 H (74-99) mg/dL POC Glucose (mg/dL) 131 H (75-99) mg/dL Calcium 8.3 L (8.4-10.2) mg/dL Magnesium (1.6-2.3) mg/dL AST 70 H (17-59) U/L Alkaline Phosphatase 27 L (38-126) U/L Total Protein 5.1 L (6.3-8.2) g/dL Albumin 3.1 L (3.5-5.0) g/dL Arterial Blood Potassium (3.4-4.5) mmol/L Arterial Blood Glucose (75-99) mg/dL Crossmatch 01/08/22 01/08/22 Range/Units 06:31 09:07 WBC (3.8-10.6) k/uL RBC (4.30-5.90) m/uL Hgb (13.0-17.5) gm/dL Hct (39.0-53.0) % Plt Count (150-450) k/uL Neutrophils # (1.3-7.7) k/uL Lymphocytes # (1.0-4.8) k/uL PT (9.0-12.0) sec INR (<1.2) ABG pH (7.35-7.45) ABG pCO2 (35-45) mmHg ABG pO2 (83-108) mmHg ABG HCO3 (21-25) mmol/L ABG Total CO2 (19-24) mmol/L ABG O2 Saturation (94-97) % ABG Hematocrit (34.0-46.0) % ABG Potassium (3.4-4.5) mmol/L ABG Ionized Calcium (4.5-5.3) mg/dL ABG Glucose (75-99) mg/dL Hemoglobin (13.0-17.5) gm/dL Chloride (98-107) mmol/L Glucose (74-99) mg/dL POC Glucose (mg/dL) 147 H 132 H (75-99) mg/dL Calcium (8.4-10.2) mg/dL Magnesium (1.6-2.3) mg/dL AST (17-59) U/L Alkaline Phosphatase (38-126) U/L Total Protein (6.3-8.2) g/dL Albumin (3.5-5.0) g/dL Arterial Blood Potassium (3.4-4.5) mmol/L Arterial Blood Glucose (75-99) mg/dL Crossmatch Assessment and Plan Assessment: 1 Chest pain in a patient found to have severe coronary artery disease with right and left heavily calcified system. Critical disease involving the RCA with proximal lesion of 70-80%. Critical lesion involving the ostium of the left main of 80-90%. He did undergo quintuple coronary artery bypass grafting on 04/22/2021 using the FERRARA to the second diagonal artery and then to the mid and distal left anterior descending arteries, left radial artery to the ramus intermedius, reverse saphenous vein graft to the posterior descending artery and the posterior lateral branch of the right coronary artery. Postoperative day #1. Successfully extubated at 22:20 04/22/2021. 2 Right internal carotid stenosis of 50-70% 3 History of peripheral arterial disease 4 Hypertension 5 Hyperlipidemia 6 Lifelong nonsmoker. FEV1 value 2.7 L which is 88% of predicted Plan: The patient was seen and evaluated Chest x-ray and labs reviewed Doing very well, on 2 L Lifelong nonsmoker Working well with the incentive spirometer Titrate the FiO2 as tolerated Increase his activity as tolerated We will continue to follow I, the cosigning physician, performed a history & physical examination of the patient. Lungs sounds crackles in the bilateral basesr. Maintaining good O2 saturations in the 90s on 2 L/m per nasal cannula I discussed the assessment and plan of care with my nurse practitioner, Marielos Santoyo. I attest to the above note as dictated by her.
[2021-04-23] MEDS: MUPIROCIN 2% OINT 22 GM TUBE NASAL SCH ×2 (10:31→20:55)
[2021-04-23] MEDS: METOPROLOL TARTRATE 12.5 MG TAB PO SCH ×2 (10:31→20:55)
[2021-04-23 11:07] LABS: Glucose,Whole Blood 124 mg/dL (75-99)
[2021-04-23] MEDS ORDERED: amLODIPine 2.5 MG TAB PO SCH (12:00)
--- NOTE | 2021-04-23 12:26 | P.CONS ---
History of Present Illness - Reason for Consult Consult date: 04/23/21 Management of hyperglycemia - History of Present Illness This is a pleasant 65-year-old white male patient of my partner. He has known peripheral artery disease, hypertension, hyperlipidemia. He was seen by Dr. Diane for intermittent chest pain. He was brought in the hospital for elective cardiac catheterization by Dr. Diane. He was found to have extremely calcified right coronary arteries. There is significant disease found. A coronary bypass graft was recommended. Dr. Sanchez was consultation. The patient underwent 5. Vessel bypass 04/22/2021. Patient is now resting comfortably in the intensive care unit. He is been extubated last night. He indicates his pain is controlled. His is at bedside. He denies any chest pain or shortness of breath at this time. He is not a diabetic. We've been counseled for insulin management due to hyperglycemia post procedure. Review of Systems All systems: negative Past Medical History Past Medical History: Chest Pain / Angina, Hyperlipidemia, Hypertension Additional Past Medical History / Comment(s): RECENT CHEST PAIN WITH EXERCISE History of Any Multi-Drug Resistant Organisms: MRSA Year Discovered:: 2013 MDRO Source:: LT ANKLE Past Surgical History: Joint Replacement, Orthopedic Surgery Additional Past Surgical History / Comment(s): LT achilles tendon repair 09/05/2013, right knee replacement apr 2012, right wrist--excess bone removed 5 years ago, RT ROTATOR CUFF REPAIR APR 2014., COLONOSOCPY, LT ROTATOR CUFF REPAI R, Past Anesthesia/Blood Transfusion Reactions: No Reported Reaction Past Psychological History: No Psychological Hx Reported Smoking Status: Never smoker Past Alcohol Use History: Rare Past Drug Use History: None Reported - Past Family History Mother Family Medical History: Diabetes Mellitus Additional Family Medical History / Comment(s): Pancreatitis Father Family Medical History: No Reported History Additional Family Medical History / Comment(s): PARKINSONS Medications and Allergies Home Medications Medication Instructions Recorded Confirmed Type Aspirin 81 mg PO DAILY 04/19/21 04/20/21 History Isosorbide Mononitrate [Isosorbide 30 mg PO DAILY 04/19/21 04/20/21 History Mononitrate ER] Rosuvastatin [Crestor] 20 mg PO DAILY 04/19/21 04/20/21 History Allergies Allergy/AdvReac Type Severity Reaction Status Date / Time No Known Allergies Allergy Verified 04/19/21 09:20 Physical Exam Vitals: Vital Signs Temp Pulse Resp BP Pulse Ox 04/23/21 11:19 71 04/23/21 11:09 70 04/23/21 10:30 75 20 99 04/23/21 10:15 70 24 98 04/23/21 10:00 69 23 96 04/23/21 09:45 69 9 L 99 04/23/21 09:30 69 7 L 99 04/23/21 09:15 79 26 H 93 L 04/23/21 09:00 80 13 99 04/23/21 08:45 80 9 L 97 04/23/21 08:30 77 23 90 L 04/23/21 08:15 80 16 90 L 04/23/21 08:00 98.4 F 80 21 96 04/23/21 07:45 80 13 100 04/23/21 07:30 79 12 85 L 04/23/21 07:28 80 04/23/21 07:16 80 04/23/21 07:15 80 12 93 L 04/23/21 07:00 80 16 98 04/23/21 06:45 80 25 H 97 04/23/21 06:30 80 16 107/58 99 04/23/21 06:15 80 18 107/58 99 04/23/21 06:00 79 17 107/58 04/23/21 05:45 80 17 107/58 04/23/21 05:30 80 20 107/58 99 04/23/21 05:15 80 29 H 107/58 99 04/23/21 05:00 80 18 107/71 99 04/23/21 04:45 80 14 107/71 100 04/23/21 04:30 80 12 98/65 99 04/23/21 04:15 80 20 98/65 99 04/23/21 04:00 80 12 109/73 98 04/23/21 03:45 80 11 L 109/73 98 04/23/21 03:30 76 14 116/72 99 04/23/21 03:15 80 13 116/72 100 04/23/21 03:00 80 14 100 04/23/21 02:45 80 13 112/70 100 04/23/21 02:30 75 16 100 04/23/21 02:15 80 16 112/66 100 04/23/21 02:00 80 15 113/67 100 04/23/21 01:45 80 15 111/70 99 04/23/21 01:30 80 16 102/68 100 04/23/21 01:15 80 15 102/67 99 04/23/21 01:00 80 28 H 103/64 98 04/23/21 00:45 80 15 113/62 99 04/23/21 00:40 80 15 113/62 99 04/23/21 00:30 80 15 113/74 100 04/23/21 00:15 80 14 120/78 99 04/23/21 00:00 80 15 116/72 100 04/22/21 23:45 80 14 99/67 100 04/22/21 23:30 76 29 H 94/70 98 04/22/21 23:15 76 31 H 111/65 99 04/22/21 23:00 80 19 107/64 99 04/22/21 22:45 80 21 110/68 97 04/22/21 22:30 80 24 114/72 98 04/22/21 22:15 80 15 113/70 100 04/22/21 22:00 80 16 96/61 100 04/22/21 21:45 80 16 88/58 100 04/22/21 21:30 80 24 80/51 99 04/22/21 21:15 80 15 78/50 99 04/22/21 21:00 80 19 71/44 97 04/22/21 20:45 80 18 69/48 98 04/22/21 20:30 71 19 86/51 100 04/22/21 20:15 70 17 88/56 99 04/22/21 20:00 78 24 89/40 97 04/22/21 19:30 76 19 94/46 100 04/22/21 19:15 67 16 74/60 98 04/22/21 19:00 72 11 L 71/49 98 04/22/21 18:45 76 28 H 98/73 94 L 04/22/21 18:30 70 18 95 04/22/21 18:15 70 22 100 04/22/21 18:00 75 14 99 04/22/21 17:45 71 19 98 04/22/21 17:30 80 16 98 04/22/21 17:15 80 15 98 04/22/21 17:00 80 14 100 04/22/21 16:48 100 Intake and Output 01/07/22 01/08/22 01/08/22 22:59 06:59 14:59 Intake Total 5749.257 6184.392 668.1 Output Total 3581 802 158 Balance -2335.173 237.392 510.1 Intake: IV 1240 1030 100 ACETAMINOPHEN IV (For NPO 100 ) 1,000 mg In Empty Bag 1 bag @ 400 mls/hr IVPB Q6HR [facility] Rx#:[id number] Albumin Human 5% 250 ml 750 250 In Empty Bag 1 bag @ 250 mls/hr IVPB Q1HR PRN Rx#: [id number] CO/CI injection 90 230 Sodium Chloride 0.9% 1, 300 400 100 000 ml @ 20 mls/hr IV . Q24H [facility] Rx#:[id number] ceFAZolin 2 gm In Sodium 50 50 Chloride 0.9% 50 ml @ 100 mls/hr IVPB Q8HR [facility] Rx# :[id number] Intake, IV Titration 5.827 9.392 208.1 Amount Clevidipine Butyrate 25 3.267 mg In Empty Bag 1 bag @ 1 MG/HR 2 mls/hr IV .Q24H [facility] Rx#:[id number] Dexmedetomidine/0.9% NaCl 2.560 (Pmx) 400 mcg In Empty Bag 1 bag @ Titrate IV . Q0M [facility] Rx#:[id number] Insulin Regular 100 unit 9.392 In Sodium Chloride 0.9% 100 ml @ Per Protocol IV .Q0M [facility] Rx#:[id number] Norepinephrine 4 mg In 158.1 Sodium Chloride 0.9% 250 ml @ 0.05 MCG/KG/MIN 15. 602 mls/hr IV .[id number] [facility] Rx#:[id number] ceFAZolin 2 gm In Sodium 50 Chloride 0.9% 50 ml @ 100 mls/hr IVPB Q8HR [facility] Rx# :[id number] Oral 360 Output: Chest Tube Drainage 216 292 50 Chest Tube Left 74 92 20 Chest Tube Mediastinal 142 200 30 Drainage 5 55 Left Wrist 5 55 Urine 1560 455 108 Estimated Blood Loss 1800 Other: Voiding Method Indwelling Catheter Indwelling Catheter Indwelling Catheter Weight 77.5 kg ABP, PAP, CO, CI - Last 8 Hours Arterial Blood Pressure 82/63 Arterial Blood Pressure 112/56 Arterial Blood Pressure 122/60 Arterial Blood Pressure 126/45 Arterial Blood Pressure 119/58 Arterial Blood Pressure 153/70 Arterial Blood Pressure 148/60 Arterial Blood Pressure 130/60 Arterial Blood Pressure 120/53 Arterial Blood Pressure 135/55 Arterial Blood Pressure 143/57 Arterial Blood Pressure 103/52 Arterial Blood Pressure 122/60 Arterial Blood Pressure 130/57 Arterial Blood Pressure 117/52 Arterial Blood Pressure 115/50 Arterial Blood Pressure 122/55 Arterial Blood Pressure 123/48 Arterial Blood Pressure 107/49 Arterial Blood Pressure 143/66 Arterial Blood Pressure 133/65 Arterial Blood Pressure 105/49 Arterial Blood Pressure 104/49 Arterial Blood Pressure 103/51 Arterial Blood Pressure 100/47 Pulmonary Artery Pressure 24/9 Pulmonary Artery Pressure 17/3 Pulmonary Artery Pressure 23/9 Pulmonary Artery Pressure 30/13 Pulmonary Artery Pressure 24/10 Pulmonary Artery Pressure 20/9 Pulmonary Artery Pressure 17/8 Pulmonary Artery Pressure 18/7 Pulmonary Artery Pressure 24/9 Pulmonary Artery Pressure 21/8 Pulmonary Artery Pressure 21/7 Pulmonary Artery Pressure 17/6 Pulmonary Artery Pressure 16/7 Pulmonary Artery Pressure 16/5 Pulmonary Artery Pressure 19/4 Pulmonary Artery Pressure 16/5 Pulmonary Artery Pressure 30/14 Pulmonary Artery Pressure 36/21 Pulmonary Artery Pressure 36/20 Pulmonary Artery Pressure 21/8 Pulmonary Artery Pressure 19/7 Pulmonary Artery Pressure 18/6 Pulmonary Artery Pressure 26/10 Cardiac Output 5 Cardiac Output 5 Cardiac Output 5 Cardiac Output 5 Cardiac Output 5 Cardiac Output 5 Cardiac Output 5 Cardiac Output 5 Cardiac Output 5 Cardiac Output 5 Cardiac Output 5 Cardiac Output 5 Cardiac Output 5 Cardiac Output 5 Cardiac Output 5 Cardiac Index 2.5 Cardiac Index 2.5 Cardiac Index 2.5 Cardiac Index 2.5 Cardiac Index 2.5 Cardiac Index 2.5 Cardiac Index 2.5 Cardiac Index 2.5 Cardiac Index 2.5 Cardiac Index 2.5 Cardiac Index 2.5 Cardiac Index 2.5 Cardiac Index 2.5 Cardiac Index 2.5 Cardiac Index 2.5 GENERAL: The patient is in no acute distress. Abdominal binder in place. Dressing to chest wall is clean dry and intact. HEAD: Atraumatic, normocephalic. EYES: Pupils equal round and reactive to light, extraocular movements intact, sclera anicteric, conjunctiva are normal. ENT:nares patent, oropharynx clear without exudates. Moist mucous membranes. NECK: Normal range of motion, supple without lymphadenopathy or JVD, no thyromegaly LUNGS: Breath sounds slightly coarse to auscultation bilaterally and equal. No wheezes rales or rhonchi. HEART: Regular rate and rhythm without murmurs, rubs or gallops.S1S2 Normal ABDOMEN: Soft, nontender, normoactive bowel sounds. No guarding, no rebound. No masses appreciated. EXTREMITIES: Normal range of motion, no pitting or edema. No clubbing or cyanosis. NEUROLOGICAL: Cranial nerves II through XII grossly intact. Normal speech, gait testing was deferred PSYCH: Normal mood, normal affect. SKIN: Warm, Dry, normal turgor, no rashes or lesions noted. Chest wall dressing is clean dry and intact Results CBC & Chem 7: 04/23/21 04:10 04/23/21 04:10 Labs: Abnormal Lab Results - Last 24 Hours (Table) 04/21/21 04/22/21 04/22/21 Range/Units 08:24 08:47 11:37 WBC (3.8-10.6) k/uL RBC (4.30-5.90) m/uL Hgb (13.0-17.5) gm/dL Hct (39.0-53.0) % Plt Count (150-450) k/uL Neutrophils # (1.3-7.7) k/uL Lymphocytes # (1.0-4.8) k/uL PT (9.0-12.0) sec INR (<1.2) ABG pH 7.34 L (7.35-7.45) ABG pCO2 48 H 50 H (35-45) mmHg ABG pO2 241 H 281 H (83-108) mmHg ABG HCO3 28 H 27 H (21-25) mmol/L ABG Total CO2 29 H 29 H (19-24) mmol/L ABG O2 Saturation 99.7 H 99.9 H (94-97) % ABG Hematocrit (34.0-46.0) % ABG Potassium (3.4-4.5) mmol/L ABG Ionized Calcium (4.5-5.3) mg/dL ABG Glucose 100 H (75-99) mg/dL Hemoglobin (13.0-17.5) gm/dL Chloride (98-107) mmol/L Glucose (74-99) mg/dL POC Glucose (mg/dL) (75-99) mg/dL Calcium (8.4-10.2) mg/dL Magnesium (1.6-2.3) mg/dL AST (17-59) U/L Alkaline Phosphatase (38-126) U/L Total Protein (6.3-8.2) g/dL Albumin (3.5-5.0) g/dL Arterial Blood Potassium (3.4-4.5) mmol/L Arterial Blood Glucose 100 H (75-99) mg/dL Crossmatch See Detail 04/22/21 04/22/21 04/22/21 Range/Units 12:28 13:08 13:51 WBC (3.8-10.6) k/uL RBC (4.30-5.90) m/uL Hgb (13.0-17.5) gm/dL Hct (39.0-53.0) % Plt Count (150-450) k/uL Neutrophils # (1.3-7.7) k/uL Lymphocytes # (1.0-4.8) k/uL PT (9.0-12.0) sec INR (<1.2) ABG pH (7.35-7.45) ABG pCO2 (35-45) mmHg ABG pO2 >420 H 357 H 356 H (83-108) mmHg ABG HCO3 26 H 26 H 26 H (21-25) mmol/L ABG Total CO2 27 H 28 H 27 H (19-24) mmol/L ABG O2 Saturation 100.0 H 100.0 H 100.0 H (94-97) % ABG Hematocrit 33 L 32 L 31 L (34.0-46.0) % ABG Potassium 5.2 H 5.1 H (3.4-4.5) mmol/L ABG Ionized Calcium 4.3 L 4.3 L (4.5-5.3) mg/dL ABG Glucose (75-99) mg/dL Hemoglobin 10.8 L 10.6 L 10.2 L (13.0-17.5) gm/dL Chloride (98-107) mmol/L Glucose (74-99) mg/dL POC Glucose (mg/dL) (75-99) mg/dL Calcium (8.4-10.2) mg/dL Magnesium (1.6-2.3) mg/dL AST (17-59) U/L Alkaline Phosphatase (38-126) U/L Total Protein (6.3-8.2) g/dL Albumin (3.5-5.0) g/dL Arterial Blood Potassium 5.2 H 5.1 H (3.4-4.5) mmol/L Arterial Blood Glucose (75-99) mg/dL Crossmatch 04/22/21 04/22/21 04/22/21 Range/Units 14:21 15:00 15:06 WBC (3.8-10.6) k/uL RBC (4.30-5.90) m/uL Hgb (13.0-17.5) gm/dL Hct (39.0-53.0) % Plt Count (150-450) k/uL Neutrophils # (1.3-7.7) k/uL Lymphocytes # (1.0-4.8) k/uL PT (9.0-12.0) sec INR (<1.2) ABG pH 7.32 L 7.34 L (7.35-7.45) ABG pCO2 51 H 48 H (35-45) mmHg ABG pO2 328 H 165 H 400 H (83-108) mmHg ABG HCO3 26 H 27 H 26 H (21-25) mmol/L ABG Total CO2 27 H 28 H 27 H (19-24) mmol/L ABG O2 Saturation 100.0 H 99.4 H 100.0 H (94-97) % ABG Hematocrit 32 L 31 L 31 L (34.0-46.0) % ABG Potassium 5.0 H 5.0 H 5.0 H (3.4-4.5) mmol/L ABG Ionized Calcium 4.4 L 4.4 L (4.5-5.3) mg/dL ABG Glucose 104 H 108 H (75-99) mg/dL Hemoglobin 10.3 L 10.0 L 10.1 L (13.0-17.5) gm/dL Chloride (98-107) mmol/L Glucose (74-99) mg/dL POC Glucose (mg/dL) (75-99) mg/dL Calcium (8.4-10.2) mg/dL Magnesium (1.6-2.3) mg/dL AST (17-59) U/L Alkaline Phosphatase (38-126) U/L Total Protein (6.3-8.2) g/dL Albumin (3.5-5.0) g/dL Arterial Blood Potassium 5.0 H 5.0 H 5.0 H (3.4-4.5) mmol/L Arterial Blood Glucose 104 H 108 H (75-99) mg/dL Crossmatch 04/22/21 04/22/21 04/22/21 Range/Units 15:52 17:11 17:13 WBC (3.8-10.6) k/uL RBC 3.35 L (4.30-5.90) m/uL Hgb 10.9 L D (13.0-17.5) gm/dL Hct 32.8 L (39.0-53.0) % Plt Count 100 L (150-450) k/uL Neutrophils # (1.3-7.7) k/uL Lymphocytes # 0.7 L (1.0-4.8) k/uL PT (9.0-12.0) sec INR (<1.2) ABG pH (7.35-7.45) ABG pCO2 48 H (35-45) mmHg ABG pO2 262 H >400 H (83-108) mmHg ABG HCO3 26 H 26 H (21-25) mmol/L ABG Total CO2 27 H 28 H (19-24) mmol/L ABG O2 Saturation 100.0 H 100.0 H (94-97) % ABG Hematocrit 30 L (34.0-46.0) % ABG Potassium (3.4-4.5) mmol/L ABG Ionized Calcium (4.5-5.3) mg/dL ABG Glucose 106 H (75-99) mg/dL Hemoglobin 9.8 L (13.0-17.5) gm/dL Chloride (98-107) mmol/L Glucose (74-99) mg/dL POC Glucose (mg/dL) (75-99) mg/dL Calcium (8.4-10.2) mg/dL Magnesium (1.6-2.3) mg/dL AST (17-59) U/L Alkaline Phosphatase (38-126) U/L Total Protein (6.3-8.2) g/dL Albumin (3.5-5.0) g/dL Arterial Blood Potassium (3.4-4.5) mmol/L Arterial Blood Glucose 106 H (75-99) mg/dL Crossmatch 04/22/21 04/22/21 04/22/21 Range/Units 17:13 17:13 18:05 WBC (3.8-10.6) k/uL RBC (4.30-5.90) m/uL Hgb (13.0-17.5) gm/dL Hct (39.0-53.0) % Plt Count (150-450) k/uL Neutrophils # (1.3-7.7) k/uL Lymphocytes # (1.0-4.8) k/uL PT 12.4 H (9.0-12.0) sec INR 1.2 H (<1.2) ABG pH (7.35-7.45) ABG pCO2 (35-45) mmHg ABG pO2 (83-108) mmHg ABG HCO3 (21-25) mmol/L ABG Total CO2 (19-24) mmol/L ABG O2 Saturation (94-97) % ABG Hematocrit (34.0-46.0) % ABG Potassium (3.4-4.5) mmol/L ABG Ionized Calcium (4.5-5.3) mg/dL ABG Glucose (75-99) mg/dL Hemoglobin (13.0-17.5) gm/dL Chloride 110 H (98-107) mmol/L Glucose (74-99) mg/dL POC Glucose (mg/dL) 68 L (75-99) mg/dL Calcium 8.2 L (8.4-10.2) mg/dL Magnesium 2.6 H (1.6-2.3) mg/dL AST 66 H (17-59) U/L Alkaline Phosphatase 25 L (38-126) U/L Total Protein 4.8 L (6.3-8.2) g/dL Albumin 2.7 L (3.5-5.0) g/dL Arterial Blood Potassium (3.4-4.5) mmol/L Arterial Blood Glucose (75-99) mg/dL Crossmatch 04/22/21 04/22/21 04/22/21 Range/Units 18:07 19:10 19:14 WBC (3.8-10.6) k/uL RBC (4.30-5.90) m/uL Hgb (13.0-17.5) gm/dL Hct (39.0-53.0) % Plt Count (150-450) k/uL Neutrophils # (1.3-7.7) k/uL Lymphocytes # (1.0-4.8) k/uL PT (9.0-12.0) sec INR (<1.2) ABG pH (7.35-7.45) ABG pCO2 (35-45) mmHg ABG pO2 (83-108) mmHg ABG HCO3 (21-25) mmol/L ABG Total CO2 (19-24) mmol/L ABG O2 Saturation (94-97) % ABG Hematocrit (34.0-46.0) % ABG Potassium (3.4-4.5) mmol/L ABG Ionized Calcium (4.5-5.3) mg/dL ABG Glucose (75-99) mg/dL Hemoglobin (13.0-17.5) gm/dL Chloride (98-107) mmol/L Glucose (74-99) mg/dL POC Glucose (mg/dL) 116 H 70 L 123 H (75-99) mg/dL Calcium (8.4-10.2) mg/dL Magnesium (1.6-2.3) mg/dL AST (17-59) U/L Alkaline Phosphatase (38-126) U/L Total Protein (6.3-8.2) g/dL Albumin (3.5-5.0) g/dL Arterial Blood Potassium (3.4-4.5) mmol/L Arterial Blood Glucose (75-99) mg/dL Crossmatch 04/22/21 04/22/21 04/22/21 Range/Units 19:53 19:53 21:06 WBC 13.0 H (3.8-10.6) k/uL RBC 3.09 L (4.30-5.90) m/uL Hgb 10.0 L (13.0-17.5) gm/dL Hct 29.6 L (39.0-53.0) % Plt Count 123 L (150-450) k/uL Neutrophils # 11.4 H (1.3-7.7) k/uL Lymphocytes # 0.7 L (1.0-4.8) k/uL PT (9.0-12.0) sec INR (<1.2) ABG pH (7.35-7.45) ABG pCO2 (35-45) mmHg ABG pO2 (83-108) mmHg ABG HCO3 (21-25) mmol/L ABG Total CO2 (19-24) mmol/L ABG O2 Saturation (94-97) % ABG Hematocrit (34.0-46.0) % ABG Potassium (3.4-4.5) mmol/L ABG Ionized Calcium (4.5-5.3) mg/dL ABG Glucose (75-99) mg/dL Hemoglobin (13.0-17.5) gm/dL Chloride (98-107) mmol/L Glucose (74-99) mg/dL POC Glucose (mg/dL) 120 H 123 H (75-99) mg/dL Calcium (8.4-10.2) mg/dL Magnesium (1.6-2.3) mg/dL AST (17-59) U/L Alkaline Phosphatase (38-126) U/L Total Protein (6.3-8.2) g/dL Albumin (3.5-5.0) g/dL Arterial Blood Potassium (3.4-4.5) mmol/L Arterial Blood Glucose (75-99) mg/dL Crossmatch 04/22/21 04/22/21 04/22/21 Range/Units 21:53 21:55 23:05 WBC 10.8 H (3.8-10.6) k/uL RBC 2.86 L (4.30-5.90) m/uL Hgb 9.0 L (13.0-17.5) gm/dL Hct 27.3 L (39.0-53.0) % Plt Count 109 L (150-450) k/uL Neutrophils # 9.9 H (1.3-7.7) k/uL Lymphocytes # 0.4 L (1.0-4.8) k/uL PT (9.0-12.0) sec INR (<1.2) ABG pH (7.35-7.45) ABG pCO2 (35-45) mmHg ABG pO2 123 H (83-108) mmHg ABG HCO3 (21-25) mmol/L ABG Total CO2 25 H (19-24) mmol/L ABG O2 Saturation 99.0 H (94-97) % ABG Hematocrit (34.0-46.0) % ABG Potassium (3.4-4.5) mmol/L ABG Ionized Calcium (4.5-5.3) mg/dL ABG Glucose (75-99) mg/dL Hemoglobin (13.0-17.5) gm/dL Chloride (98-107) mmol/L Glucose (74-99) mg/dL POC Glucose (mg/dL) 126 H (75-99) mg/dL Calcium (8.4-10.2) mg/dL Magnesium (1.6-2.3) mg/dL AST (17-59) U/L Alkaline Phosphatase (38-126) U/L Total Protein (6.3-8.2) g/dL Albumin (3.5-5.0) g/dL Arterial Blood Potassium (3.4-4.5) mmol/L Arterial Blood Glucose (75-99) mg/dL Crossmatch 04/22/21 04/23/21 04/23/21 Range/Units 23:07 00:23 01:06 WBC (3.8-10.6) k/uL RBC (4.30-5.90) m/uL Hgb (13.0-17.5) gm/dL Hct (39.0-53.0) % Plt Count (150-450) k/uL Neutrophils # (1.3-7.7) k/uL Lymphocytes # (1.0-4.8) k/uL PT (9.0-12.0) sec INR (<1.2) ABG pH (7.35-7.45) ABG pCO2 (35-45) mmHg ABG pO2 (83-108) mmHg ABG HCO3 (21-25) mmol/L ABG Total CO2 (19-24) mmol/L ABG O2 Saturation (94-97) % ABG Hematocrit (34.0-46.0) % ABG Potassium (3.4-4.5) mmol/L ABG Ionized Calcium (4.5-5.3) mg/dL ABG Glucose (75-99) mg/dL Hemoglobin (13.0-17.5) gm/dL Chloride (98-107) mmol/L Glucose (74-99) mg/dL POC Glucose (mg/dL) 138 H 138 H 139 H (75-99) mg/dL Calcium (8.4-10.2) mg/dL Magnesium (1.6-2.3) mg/dL AST (17-59) U/L Alkaline Phosphatase (38-126) U/L Total Protein (6.3-8.2) g/dL Albumin (3.5-5.0) g/dL Arterial Blood Potassium (3.4-4.5) mmol/L Arterial Blood Glucose (75-99) mg/dL Crossmatch 04/23/21 04/23/21 04/23/21 Range/Units 02:09 03:03 04:08 WBC (3.8-10.6) k/uL RBC (4.30-5.90) m/uL Hgb (13.0-17.5) gm/dL Hct (39.0-53.0) % Plt Count (150-450) k/uL Neutrophils # (1.3-7.7) k/uL Lymphocytes # (1.0-4.8) k/uL PT (9.0-12.0) sec INR (<1.2) ABG pH (7.35-7.45) ABG pCO2 (35-45) mmHg ABG pO2 (83-108) mmHg ABG HCO3 (21-25) mmol/L ABG Total CO2 (19-24) mmol/L ABG O2 Saturation (94-97) % ABG Hematocrit (34.0-46.0) % ABG Potassium (3.4-4.5) mmol/L ABG Ionized Calcium (4.5-5.3) mg/dL ABG Glucose (75-99) mg/dL Hemoglobin (13.0-17.5) gm/dL Chloride (98-107) mmol/L Glucose (74-99) mg/dL POC Glucose (mg/dL) 135 H 141 H 142 H (75-99) mg/dL Calcium (8.4-10.2) mg/dL Magnesium (1.6-2.3) mg/dL AST (17-59) U/L Alkaline Phosphatase (38-126) U/L Total Protein (6.3-8.2) g/dL Albumin (3.5-5.0) g/dL Arterial Blood Potassium (3.4-4.5) mmol/L Arterial Blood Glucose (75-99) mg/dL Crossmatch 04/23/21 04/23/21 04/23/21 Range/Units 04:10 04:10 05:04 WBC (3.8-10.6) k/uL RBC 2.82 L (4.30-5.90) m/uL Hgb 9.1 L (13.0-17.5) gm/dL Hct 27.3 L (39.0-53.0) % Plt Count 112 L (150-450) k/uL Neutrophils # 8.0 H (1.3-7.7) k/uL Lymphocytes # 0.6 L (1.0-4.8) k/uL PT (9.0-12.0) sec INR (<1.2) ABG pH (7.35-7.45) ABG pCO2 (35-45) mmHg ABG pO2 (83-108) mmHg ABG HCO3 (21-25) mmol/L ABG Total CO2 (19-24) mmol/L ABG O2 Saturation (94-97) % ABG Hematocrit (34.0-46.0) % ABG Potassium (3.4-4.5) mmol/L ABG Ionized Calcium (4.5-5.3) mg/dL ABG Glucose (75-99) mg/dL Hemoglobin (13.0-17.5) gm/dL Chloride 112 H (98-107) mmol/L Glucose 126 H (74-99) mg/dL POC Glucose (mg/dL) 131 H (75-99) mg/dL Calcium 8.3 L (8.4-10.2) mg/dL Magnesium (1.6-2.3) mg/dL AST 70 H (17-59) U/L Alkaline Phosphatase 27 L (38-126) U/L Total Protein 5.1 L (6.3-8.2) g/dL Albumin 3.1 L (3.5-5.0) g/dL Arterial Blood Potassium (3.4-4.5) mmol/L Arterial Blood Glucose (75-99) mg/dL Crossmatch 04/23/21 04/23/21 04/23/21 Range/Units 06:31 09:07 11:06 WBC (3.8-10.6) k/uL RBC (4.30-5.90) m/uL Hgb (13.0-17.5) gm/dL Hct (39.0-53.0) % Plt Count (150-450) k/uL Neutrophils # (1.3-7.7) k/uL Lymphocytes # (1.0-4.8) k/uL PT (9.0-12.0) sec INR (<1.2) ABG pH (7.35-7.45) ABG pCO2 (35-45) mmHg ABG pO2 (83-108) mmHg ABG HCO3 (21-25) mmol/L ABG Total CO2 (19-24) mmol/L ABG O2 Saturation (94-97) % ABG Hematocrit (34.0-46.0) % ABG Potassium (3.4-4.5) mmol/L ABG Ionized Calcium (4.5-5.3) mg/dL ABG Glucose (75-99) mg/dL Hemoglobin (13.0-17.5) gm/dL Chloride (98-107) mmol/L Glucose (74-99) mg/dL POC Glucose (mg/dL) 147 H 132 H 124 H (75-99) mg/dL Calcium (8.4-10.2) mg/dL Magnesium (1.6-2.3) mg/dL AST (17-59) U/L Alkaline Phosphatase (38-126) U/L Total Protein (6.3-8.2) g/dL Albumin (3.5-5.0) g/dL Arterial Blood Potassium (3.4-4.5) mmol/L Arterial Blood Glucose (75-99) mg/dL Crossmatch Chest x-ray: report reviewed Assessment and Plan (1) S/P five vessel coronary artery bypass Current Visit: Yes Status: Acute Code(s): Z95.1 - PRESENCE OF AORTOCORONARY BYPASS GRAFT SNOMED Code(s): 947270245 (2) CAD (coronary artery disease) Current Visit: Yes Status: Acute Code(s): I25.10 - ATHSCL HEART DISEASE OF [place] CORONARY ARTERY W/O ANG PCTRS SNOMED Code(s): 07449186 (3) Stenosis of right carotid artery Current Visit: Yes Status: Acute Code(s): I65.21 - OCCLUSION AND STENOSIS OF RIGHT CAROTID ARTERY SNOMED Code(s): 959885861263466 (4) PAD (peripheral artery disease) Current Visit: Yes Status: Acute Code(s): I73.9 - PERIPHERAL VASCULAR DISEASE, UNSPECIFIED SNOMED Code(s): 327070634 (5) Essential (primary) hypertension Current Visit: Yes Status: Acute Code(s): I10 - ESSENTIAL (PRIMARY) HYPERTENSION SNOMED Code(s): 70697970 (6) Mixed hyperlipidemia Current Visit: Yes Status: Acute Code(s): E78.2 - MIXED HYPERLIPIDEMIA SNOMED Code(s): 227942296 (7) Hyperglycemia Current Visit: Yes Status: Acute Code(s): R73.9 - HYPERGLYCEMIA, UNSPECIFIED SNOMED Code(s): 01255483 Plan: Notes from critical care, thoracic surgery reviewed today. Patient is currently on the multiple medications was coronary disease and recent bypass. Appears to be improving. Recommended discontinuing the insulin drip with appropriate and switching him to a insulin scale before meals and at bedtime until discharge. His A1c was 5.2%. He is not a diabetic. Thank you very much for the consultation. We'll follow the patient in the next 24 hours.
--- NOTE | 2021-04-23 13:25 | P.PN ---
Subjective HISTORY OF PRESENT ILLNESS: This is a 65-year-old male who follows in the office with Dr. Lu. Patient has been having intermittent episodes of chest discomfort. He underwent cardiac catheterization yesterday revealing extremity calcified right and left coronary systems. Critical disease involving right coronary artery. Critical disease involving the left main coronary artery. The patient was evaluated by cardiothoracic surgery and is tentatively scheduled for open heart surgery tomorrow. The patient was examined this morning. He is sitting up in the chair. He denies chest pain or pressure. Denies shortness of breath. Vital signs are stable. Echocardiogram completed revealing ejection fraction 50-55%, trace mitral regurgitation, and trace tricuspid regurgitation. 04/23 Patient seen and examined. Patient underwent CABG with FERRARA to diagonal and then to LAD as well as left radial to ramus and SVG to PDA then to PL branch 04/22/21. Patient was extubated yesterday. He admits to some continued chest pain around the incision site however overall is feeling fairly well. Does not have much of an appetite and has not really eaten much of anything. Blood work today shows hemoglobin 9.1, platelets 112, creatinine 1.0, albumin 3.1, AST 70, AST 21. PHYSICAL EXAM: VITAL SIGNS: Reviewed. GENERAL: Well-developed in no acute distress. NECK: Supple. No JVD or thyromegaly LUNGS: Respirations even and unlabored. Lungs essentially clear to auscultation bilaterally. HEART: Regular rate and rhythm. S1 and S2 heard. EXTREMITIES: Normal range of motion. No clubbing or cyanosis. Peripheral pulses intact. No lower extremity edema. Right radial cath site with pulse present. 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 Patient has been doing well after surgery. Continue beta lelia and high intensity statin. Monitor blood pressure closely. Accurate ins and outs. Further recommendations to follow. Objective - Vital Signs Vital signs: Vital Signs Temp 98.4 F 04/23/21 08:00 Pulse 71 04/23/21 11:19 Resp 20 04/23/21 10:30 BP 107/58 04/23/21 06:30 Pulse Ox 99 04/23/21 10:30 Intake & Output 04/22/21 04/23/21 04/23/21 18:59 06:59 18:59 Intake Total 870.708 3339.952 668.1 Output Total 3270 1113 158 Balance -2563.733 1018.952 510.1 Weight 77.5 kg Intake: IV 703 2120 100 ACETAMINOPHEN IV (For NPO 100 ) 1,000 mg In Empty Bag 1 bag @ 400 mls/hr IVPB Q6HR DUSTIN Rx#:[id number] Albumin Human 5% 250 ml 1000 In Empty Bag 1 bag @ 250 mls/hr IVPB Q1HR PRN Rx#: [id number] CO/CI injection 320 Sodium Chloride 0.9% 1, 100 600 100 000 ml @ 20 mls/hr IV . Q24H DUSTIN Rx#:[id number] ceFAZolin 2 gm In Sodium 100 Chloride 0.9% 50 ml @ 100 mls/hr IVPB Q8HR DUSTIN Rx# :[id number] Intake, IV Titration 3.267 11.952 208.1 Amount Clevidipine Butyrate 25 3.267 mg In Empty Bag 1 bag @ 1 MG/HR 2 mls/hr IV .Q24H DUSTIN Rx#:[id number] Dexmedetomidine/0.9% NaCl 2.560 (Pmx) 400 mcg In Empty Bag 1 bag @ Titrate IV . Q0M DUSTIN Rx#:[id number] Insulin Regular 100 unit 9.392 In Sodium Chloride 0.9% 100 ml @ Per Protocol IV .Q0M DUSTIN Rx#:[id number] Norepinephrine 4 mg In 158.1 Sodium Chloride 0.9% 250 ml @ 0.05 MCG/KG/MIN 15. 602 mls/hr IV .[id number] DUSTIN Rx#:[id number] ceFAZolin 2 gm In Sodium 50 Chloride 0.9% 50 ml @ 100 mls/hr IVPB Q8HR DUSTIN Rx# :[id number] Oral 360 Output: Chest Tube Drainage 100 408 50 Chest Tube Left 40 126 20 Chest Tube Mediastinal 60 282 30 Drainage 5 55 Left Wrist 5 55 Urine 1365 650 108 Estimated Blood Loss 1800 Other: Voiding Method Indwelling Catheter Indwelling Catheter ABP, PAP, CO, CI - Last Documented Arterial Blood Pressure 82/63 Pulmonary Artery Pressure 24/9 Cardiac Output 5 Cardiac Index 2.5 - Labs CBC & Chem 7: 04/23/21 04:10 04/23/21 04:10 Labs: Abnormal Lab Results - Last 24 Hours (Table) 04/21/21 04/22/21 04/22/21 Range/Units 08:24 08:47 11:37 WBC (3.8-10.6) k/uL RBC (4.30-5.90) m/uL Hgb (13.0-17.5) gm/dL Hct (39.0-53.0) % Plt Count (150-450) k/uL Neutrophils # (1.3-7.7) k/uL Lymphocytes # (1.0-4.8) k/uL PT (9.0-12.0) sec INR (<1.2) ABG pH 7.34 L (7.35-7.45) ABG pCO2 48 H 50 H (35-45) mmHg ABG pO2 241 H 281 H (83-108) mmHg ABG HCO3 28 H 27 H (21-25) mmol/L ABG Total CO2 29 H 29 H (19-24) mmol/L ABG O2 Saturation 99.7 H 99.9 H (94-97) % ABG Hematocrit (34.0-46.0) % ABG Potassium (3.4-4.5) mmol/L ABG Ionized Calcium (4.5-5.3) mg/dL ABG Glucose 100 H (75-99) mg/dL Hemoglobin (13.0-17.5) gm/dL Chloride (98-107) mmol/L Glucose (74-99) mg/dL POC Glucose (mg/dL) (75-99) mg/dL Calcium (8.4-10.2) mg/dL Magnesium (1.6-2.3) mg/dL AST (17-59) U/L Alkaline Phosphatase (38-126) U/L Total Protein (6.3-8.2) g/dL Albumin (3.5-5.0) g/dL Arterial Blood Potassium (3.4-4.5) mmol/L Arterial Blood Glucose 100 H (75-99) mg/dL Crossmatch See Detail 04/22/21 04/22/21 04/22/21 Range/Units 12:28 13:08 13:51 WBC (3.8-10.6) k/uL RBC (4.30-5.90) m/uL Hgb (13.0-17.5) gm/dL Hct (39.0-53.0) % Plt Count (150-450) k/uL Neutrophils # (1.3-7.7) k/uL Lymphocytes # (1.0-4.8) k/uL PT (9.0-12.0) sec INR (<1.2) ABG pH (7.35-7.45) ABG pCO2 (35-45) mmHg ABG pO2 >420 H 357 H 356 H (83-108) mmHg ABG HCO3 26 H 26 H 26 H (21-25) mmol/L ABG Total CO2 27 H 28 H 27 H (19-24) mmol/L ABG O2 Saturation 100.0 H 100.0 H 100.0 H (94-97) % ABG Hematocrit 33 L 32 L 31 L (34.0-46.0) % ABG Potassium 5.2 H 5.1 H (3.4-4.5) mmol/L ABG Ionized Calcium 4.3 L 4.3 L (4.5-5.3) mg/dL ABG Glucose (75-99) mg/dL Hemoglobin 10.8 L 10.6 L 10.2 L (13.0-17.5) gm/dL Chloride (98-107) mmol/L Glucose (74-99) mg/dL POC Glucose (mg/dL) (75-99) mg/dL Calcium (8.4-10.2) mg/dL Magnesium (1.6-2.3) mg/dL AST (17-59) U/L Alkaline Phosphatase (38-126) U/L Total Protein (6.3-8.2) g/dL Albumin (3.5-5.0) g/dL Arterial Blood Potassium 5.2 H 5.1 H (3.4-4.5) mmol/L Arterial Blood Glucose (75-99) mg/dL Crossmatch 04/22/21 04/22/21 04/22/21 Range/Units 14:21 15:00 15:06 WBC (3.8-10.6) k/uL RBC (4.30-5.90) m/uL Hgb (13.0-17.5) gm/dL Hct (39.0-53.0) % Plt Count (150-450) k/uL Neutrophils # (1.3-7.7) k/uL Lymphocytes # (1.0-4.8) k/uL PT (9.0-12.0) sec INR (<1.2) ABG pH 7.32 L 7.34 L (7.35-7.45) ABG pCO2 51 H 48 H (35-45) mmHg ABG pO2 328 H 165 H 400 H (83-108) mmHg ABG HCO3 26 H 27 H 26 H (21-25) mmol/L ABG Total CO2 27 H 28 H 27 H (19-24) mmol/L ABG O2 Saturation 100.0 H 99.4 H 100.0 H (94-97) % ABG Hematocrit 32 L 31 L 31 L (34.0-46.0) % ABG Potassium 5.0 H 5.0 H 5.0 H (3.4-4.5) mmol/L ABG Ionized Calcium 4.4 L 4.4 L (4.5-5.3) mg/dL ABG Glucose 104 H 108 H (75-99) mg/dL Hemoglobin 10.3 L 10.0 L 10.1 L (13.0-17.5) gm/dL Chloride (98-107) mmol/L Glucose (74-99) mg/dL POC Glucose (mg/dL) (75-99) mg/dL Calcium (8.4-10.2) mg/dL Magnesium (1.6-2.3) mg/dL AST (17-59) U/L Alkaline Phosphatase (38-126) U/L Total Protein (6.3-8.2) g/dL Albumin (3.5-5.0) g/dL Arterial Blood Potassium 5.0 H 5.0 H 5.0 H (3.4-4.5) mmol/L Arterial Blood Glucose 104 H 108 H (75-99) mg/dL Crossmatch 04/22/21 04/22/21 04/22/21 Range/Units 15:52 17:11 17:13 WBC (3.8-10.6) k/uL RBC 3.35 L (4.30-5.90) m/uL Hgb 10.9 L D (13.0-17.5) gm/dL Hct 32.8 L (39.0-53.0) % Plt Count 100 L (150-450) k/uL Neutrophils # (1.3-7.7) k/uL Lymphocytes # 0.7 L (1.0-4.8) k/uL PT (9.0-12.0) sec INR (<1.2) ABG pH (7.35-7.45) ABG pCO2 48 H (35-45) mmHg ABG pO2 262 H >400 H (83-108) mmHg ABG HCO3 26 H 26 H (21-25) mmol/L ABG Total CO2 27 H 28 H (19-24) mmol/L ABG O2 Saturation 100.0 H 100.0 H (94-97) % ABG Hematocrit 30 L (34.0-46.0) % ABG Potassium (3.4-4.5) mmol/L ABG Ionized Calcium (4.5-5.3) mg/dL ABG Glucose 106 H (75-99) mg/dL Hemoglobin 9.8 L (13.0-17.5) gm/dL Chloride (98-107) mmol/L Glucose (74-99) mg/dL POC Glucose (mg/dL) (75-99) mg/dL Calcium (8.4-10.2) mg/dL Magnesium (1.6-2.3) mg/dL AST (17-59) U/L Alkaline Phosphatase (38-126) U/L Total Protein (6.3-8.2) g/dL Albumin (3.5-5.0) g/dL Arterial Blood Potassium (3.4-4.5) mmol/L Arterial Blood Glucose 106 H (75-99) mg/dL Crossmatch 04/22/21 04/22/21 04/22/21 Range/Units 17:13 17:13 18:05 WBC (3.8-10.6) k/uL RBC (4.30-5.90) m/uL Hgb (13.0-17.5) gm/dL Hct (39.0-53.0) % Plt Count (150-450) k/uL Neutrophils # (1.3-7.7) k/uL Lymphocytes # (1.0-4.8) k/uL PT 12.4 H (9.0-12.0) sec INR 1.2 H (<1.2) ABG pH (7.35-7.45) ABG pCO2 (35-45) mmHg ABG pO2 (83-108) mmHg ABG HCO3 (21-25) mmol/L ABG Total CO2 (19-24) mmol/L ABG O2 Saturation (94-97) % ABG Hematocrit (34.0-46.0) % ABG Potassium (3.4-4.5) mmol/L ABG Ionized Calcium (4.5-5.3) mg/dL ABG Glucose (75-99) mg/dL Hemoglobin (13.0-17.5) gm/dL Chloride 110 H (98-107) mmol/L Glucose (74-99) mg/dL POC Glucose (mg/dL) 68 L (75-99) mg/dL Calcium 8.2 L (8.4-10.2) mg/dL Magnesium 2.6 H (1.6-2.3) mg/dL AST 66 H (17-59) U/L Alkaline Phosphatase 25 L (38-126) U/L Total Protein 4.8 L (6.3-8.2) g/dL Albumin 2.7 L (3.5-5.0) g/dL Arterial Blood Potassium (3.4-4.5) mmol/L Arterial Blood Glucose (75-99) mg/dL Crossmatch 04/22/21 04/22/21 04/22/21 Range/Units 18:07 19:10 19:14 WBC (3.8-10.6) k/uL RBC (4.30-5.90) m/uL Hgb (13.0-17.5) gm/dL Hct (39.0-53.0) % Plt Count (150-450) k/uL Neutrophils # (1.3-7.7) k/uL Lymphocytes # (1.0-4.8) k/uL PT (9.0-12.0) sec INR (<1.2) ABG pH (7.35-7.45) ABG pCO2 (35-45) mmHg ABG pO2 (83-108) mmHg ABG HCO3 (21-25) mmol/L ABG Total CO2 (19-24) mmol/L ABG O2 Saturation (94-97) % ABG Hematocrit (34.0-46.0) % ABG Potassium (3.4-4.5) mmol/L ABG Ionized Calcium (4.5-5.3) mg/dL ABG Glucose (75-99) mg/dL Hemoglobin (13.0-17.5) gm/dL Chloride (98-107) mmol/L Glucose (74-99) mg/dL POC Glucose (mg/dL) 116 H 70 L 123 H (75-99) mg/dL Calcium (8.4-10.2) mg/dL Magnesium (1.6-2.3) mg/dL AST (17-59) U/L Alkaline Phosphatase (38-126) U/L Total Protein (6.3-8.2) g/dL Albumin (3.5-5.0) g/dL Arterial Blood Potassium (3.4-4.5) mmol/L Arterial Blood Glucose (75-99) mg/dL Crossmatch 04/22/21 04/22/21 04/22/21 Range/Units 19:53 19:53 21:06 WBC 13.0 H (3.8-10.6) k/uL RBC 3.09 L (4.30-5.90) m/uL Hgb 10.0 L (13.0-17.5) gm/dL Hct 29.6 L (39.0-53.0) % Plt Count 123 L (150-450) k/uL Neutrophils # 11.4 H (1.3-7.7) k/uL Lymphocytes # 0.7 L (1.0-4.8) k/uL PT (9.0-12.0) sec INR (<1.2) ABG pH (7.35-7.45) ABG pCO2 (35-45) mmHg ABG pO2 (83-108) mmHg ABG HCO3 (21-25) mmol/L ABG Total CO2 (19-24) mmol/L ABG O2 Saturation (94-97) % ABG Hematocrit (34.0-46.0) % ABG Potassium (3.4-4.5) mmol/L ABG Ionized Calcium (4.5-5.3) mg/dL ABG Glucose (75-99) mg/dL Hemoglobin (13.0-17.5) gm/dL Chloride (98-107) mmol/L Glucose (74-99) mg/dL POC Glucose (mg/dL) 120 H 123 H (75-99) mg/dL Calcium (8.4-10.2) mg/dL Magnesium (1.6-2.3) mg/dL AST (17-59) U/L Alkaline Phosphatase (38-126) U/L Total Protein (6.3-8.2) g/dL Albumin (3.5-5.0) g/dL Arterial Blood Potassium (3.4-4.5) mmol/L Arterial Blood Glucose (75-99) mg/dL Crossmatch 04/22/21 04/22/21 04/22/21 Range/Units 21:53 21:55 23:05 WBC 10.8 H (3.8-10.6) k/uL RBC 2.86 L (4.30-5.90) m/uL Hgb 9.0 L (13.0-17.5) gm/dL Hct 27.3 L (39.0-53.0) % Plt Count 109 L (150-450) k/uL Neutrophils # 9.9 H (1.3-7.7) k/uL Lymphocytes # 0.4 L (1.0-4.8) k/uL PT (9.0-12.0) sec INR (<1.2) ABG pH (7.35-7.45) ABG pCO2 (35-45) mmHg ABG pO2 123 H (83-108) mmHg ABG HCO3 (21-25) mmol/L ABG Total CO2 25 H (19-24) mmol/L ABG O2 Saturation 99.0 H (94-97) % ABG Hematocrit (34.0-46.0) % ABG Potassium (3.4-4.5) mmol/L ABG Ionized Calcium (4.5-5.3) mg/dL ABG Glucose (75-99) mg/dL Hemoglobin (13.0-17.5) gm/dL Chloride (98-107) mmol/L Glucose (74-99) mg/dL POC Glucose (mg/dL) 126 H (75-99) mg/dL Calcium (8.4-10.2) mg/dL Magnesium (1.6-2.3) mg/dL AST (17-59) U/L Alkaline Phosphatase (38-126) U/L Total Protein (6.3-8.2) g/dL Albumin (3.5-5.0) g/dL Arterial Blood Potassium (3.4-4.5) mmol/L Arterial Blood Glucose (75-99) mg/dL Crossmatch 04/22/21 04/23/21 04/23/21 Range/Units 23:07 00:23 01:06 WBC (3.8-10.6) k/uL RBC (4.30-5.90) m/uL Hgb (13.0-17.5) gm/dL Hct (39.0-53.0) % Plt Count (150-450) k/uL Neutrophils # (1.3-7.7) k/uL Lymphocytes # (1.0-4.8) k/uL PT (9.0-12.0) sec INR (<1.2) ABG pH (7.35-7.45) ABG pCO2 (35-45) mmHg ABG pO2 (83-108) mmHg ABG HCO3 (21-25) mmol/L ABG Total CO2 (19-24) mmol/L ABG O2 Saturation (94-97) % ABG Hematocrit (34.0-46.0) % ABG Potassium (3.4-4.5) mmol/L ABG Ionized Calcium (4.5-5.3) mg/dL ABG Glucose (75-99) mg/dL Hemoglobin (13.0-17.5) gm/dL Chloride (98-107) mmol/L Glucose (74-99) mg/dL POC Glucose (mg/dL) 138 H 138 H 139 H (75-99) mg/dL Calcium (8.4-10.2) mg/dL Magnesium (1.6-2.3) mg/dL AST (17-59) U/L Alkaline Phosphatase (38-126) U/L Total Protein (6.3-8.2) g/dL Albumin (3.5-5.0) g/dL Arterial Blood Potassium (3.4-4.5) mmol/L Arterial Blood Glucose (75-99) mg/dL Crossmatch 04/23/21 04/23/21 04/23/21 Range/Units 02:09 03:03 04:08 WBC (3.8-10.6) k/uL RBC (4.30-5.90) m/uL Hgb (13.0-17.5) gm/dL Hct (39.0-53.0) % Plt Count (150-450) k/uL Neutrophils # (1.3-7.7) k/uL Lymphocytes # (1.0-4.8) k/uL PT (9.0-12.0) sec INR (<1.2) ABG pH (7.35-7.45) ABG pCO2 (35-45) mmHg ABG pO2 (83-108) mmHg ABG HCO3 (21-25) mmol/L ABG Total CO2 (19-24) mmol/L ABG O2 Saturation (94-97) % ABG Hematocrit (34.0-46.0) % ABG Potassium (3.4-4.5) mmol/L ABG Ionized Calcium (4.5-5.3) mg/dL ABG Glucose (75-99) mg/dL Hemoglobin (13.0-17.5) gm/dL Chloride (98-107) mmol/L Glucose (74-99) mg/dL POC Glucose (mg/dL) 135 H 141 H 142 H (75-99) mg/dL Calcium (8.4-10.2) mg/dL Magnesium (1.6-2.3) mg/dL AST (17-59) U/L Alkaline Phosphatase (38-126) U/L Total Protein (6.3-8.2) g/dL Albumin (3.5-5.0) g/dL Arterial Blood Potassium (3.4-4.5) mmol/L Arterial Blood Glucose (75-99) mg/dL Crossmatch 04/23/21 04/23/21 04/23/21 Range/Units 04:10 04:10 05:04 WBC (3.8-10.6) k/uL RBC 2.82 L (4.30-5.90) m/uL Hgb 9.1 L (13.0-17.5) gm/dL Hct 27.3 L (39.0-53.0) % Plt Count 112 L (150-450) k/uL Neutrophils # 8.0 H (1.3-7.7) k/uL Lymphocytes # 0.6 L (1.0-4.8) k/uL PT (9.0-12.0) sec INR (<1.2) ABG pH (7.35-7.45) ABG pCO2 (35-45) mmHg ABG pO2 (83-108) mmHg ABG HCO3 (21-25) mmol/L ABG Total CO2 (19-24) mmol/L ABG O2 Saturation (94-97) % ABG Hematocrit (34.0-46.0) % ABG Potassium (3.4-4.5) mmol/L ABG Ionized Calcium (4.5-5.3) mg/dL ABG Glucose (75-99) mg/dL Hemoglobin (13.0-17.5) gm/dL Chloride 112 H (98-107) mmol/L Glucose 126 H (74-99) mg/dL POC Glucose (mg/dL) 131 H (75-99) mg/dL Calcium 8.3 L (8.4-10.2) mg/dL Magnesium (1.6-2.3) mg/dL AST 70 H (17-59) U/L Alkaline Phosphatase 27 L (38-126) U/L Total Protein 5.1 L (6.3-8.2) g/dL Albumin 3.1 L (3.5-5.0) g/dL Arterial Blood Potassium (3.4-4.5) mmol/L Arterial Blood Glucose (75-99) mg/dL Crossmatch 04/23/21 04/23/21 04/23/21 Range/Units 06:31 09:07 11:06 WBC (3.8-10.6) k/uL RBC (4.30-5.90) m/uL Hgb (13.0-17.5) gm/dL Hct (39.0-53.0) % Plt Count (150-450) k/uL Neutrophils # (1.3-7.7) k/uL Lymphocytes # (1.0-4.8) k/uL PT (9.0-12.0) sec INR (<1.2) ABG pH (7.35-7.45) ABG pCO2 (35-45) mmHg ABG pO2 (83-108) mmHg ABG HCO3 (21-25) mmol/L ABG Total CO2 (19-24) mmol/L ABG O2 Saturation (94-97) % ABG Hematocrit (34.0-46.0) % ABG Potassium (3.4-4.5) mmol/L ABG Ionized Calcium (4.5-5.3) mg/dL ABG Glucose (75-99) mg/dL Hemoglobin (13.0-17.5) gm/dL Chloride (98-107) mmol/L Glucose (74-99) mg/dL POC Glucose (mg/dL) 147 H 132 H 124 H (75-99) mg/dL Calcium (8.4-10.2) mg/dL Magnesium (1.6-2.3) mg/dL AST (17-59) U/L Alkaline Phosphatase (38-126) U/L Total Protein (6.3-8.2) g/dL Albumin (3.5-5.0) g/dL Arterial Blood Potassium (3.4-4.5) mmol/L Arterial Blood Glucose (75-99) mg/dL Crossmatch
[2021-04-23] MEDS: amLODIPine 5 MG TAB PO SCH (14:22)
[2021-04-23 14:32] VITALS: BMI 25.2
[2021-04-23] MEDS: SODIUM CHLORIDE 0.9% 1,000 ML IV SCH (16:35)
[2021-04-23] MEDS: NOREPINEPHRINE 4 MG in SODIUM CHLORIDE 0.9% 250 ML IV SCH (16:36)
[2021-04-23 16:43] LABS: Glucose,Whole Blood 121 mg/dL (75-99)
[2021-04-23] MEDS: INSULIN ASPART (NovoLOG) 100 UNIT/ML VIAL SQ SCH ×2 (16:59→21:08)
[2021-04-23] MEDS: SENNOSIDES-DOCUSATE SODIUM 1 EACH TAB PO SCH (20:54)
[2021-04-23] MEDS ORDERED: ZOLPIDEM 5 MG TAB PO SCH (21:00)
[2021-04-23 21:07] LABS: Glucose,Whole Blood 148 mg/dL (75-99)
[2021-04-24] MEDS: HEPARIN SODIUM,PORCINE/PF 5,000 UNIT/0.5 ML SYRINGE SQ SCH ×3 (00:55→16:53)
[2021-04-24] MEDS: KETOROLAC 30 MG/ML 1 ML VIAL IVP PRN ×2 (03:07→07:02)
[2021-04-24 04:44] LABS: Ionized Calcium 5.1 mg/dL (4.5-5.3)
[2021-04-24 04:54] LABS: ALT 24 U/L (4-49); AST 76 U/L (17-59); African American GFR (CKD) >90 (>60 ml/min/1.73 sqM); Alkaline Phosphatase 40 U/L (38-126); Anion Gap 3 mmol/L; Blood Urea Nitrogen 20 mg/dL (9-20); Calcium 8.7 mg/dL (8.4-10.2); Carbon Dioxide 23 mmol/L (22-30); Chloride 106 mmol/L (98-107); Glucose 126 mg/dL (74-99); Non-African American GFR(CKD) 85 (>60 ml/min/1.73 sqM); Potassium 4.3 mmol/L (3.5-5.1); Sodium 132 mmol/L (137-145)
[2021-04-24 04:56] LABS: Basophils % (A) 0 %; Eosinophils % (A) 0 %; HCT 24.5 % (39.0-53.0); HGB 8.2 gm/dL (13.0-17.5); Lymphocytes # (A) 0.9 k/uL (1.0-4.8); Lymphocytes % (A) 10 %; MCH 32.2 pg (25.0-35.0); MCHC 33.6 g/dL (31.0-37.0); Mean Platelet Volume 8.8; Monocytes # (A) 0.4 k/uL (0-1.0); Monocytes % (A) 5 %; Neutrophils # (A) 7.2 k/uL (1.3-7.7); Neutrophils % (A) 83 %; RBC 2.55 m/uL (4.30-5.90); RDW 13.9 % (11.5-15.5); WBC 8.7 k/uL (3.8-10.6)
[2021-04-24] MEDS: NOREPINEPHRINE 4 MG in SODIUM CHLORIDE 0.9% 250 ML IV SCH (06:12)
[2021-04-24 06:14] LABS: Glucose,Whole Blood 116 mg/dL (75-99)
--- NOTE | 2021-04-24 06:39 | XR ---
EXAMINATION TYPE: XR chest 1V portable DATE OF EXAM: 04/24/2021 CLINICAL HISTORY: Difficulty breathing progress study. Postopen cardiac surgery. TECHNIQUE: Single AP portable upright view of the chest is obtained. COMPARISON: Chest x-ray from one day earlier and older studies. FINDINGS: Interval removal of right internal jugular [place]-Balbir catheter. Right internal jugular cord is sheath remains present. Stable left basilar chest tube. Stable 2 mediastinal drainage catheters. O verlying sternal wires and mediastinal clips along with left atrial appendage clip are all redemonstr ated. Persistent cardiomegaly with atherosclerotic thoracic aorta. Chronic parenchymal changes with persist ent bibasilar opacities. Old fractures of the posterior left fourth through sixth ribs thought presen t. IMPRESSION: Chronic parenchymal changes and mild cardiomegaly with persistent bibasilar atelectasis a nd/or infiltrating and small to tiny bilateral pleural effusions.
[2021-04-24] MEDS: HYDROcodone/APAP 5-325MG 1 EACH TAB PO PRN (07:03)
[2021-04-24] MEDS: INSULIN ASPART (NovoLOG) 100 UNIT/ML VIAL SQ SCH ×3 (07:31→16:54)
--- NOTE | 2021-04-24 07:53 | P.PN ---
Subjective Progress Note Date: 04/24/21 Principal diagnosis: Triple-vessel coronary artery disease with ostial left main disease, unstable angina, preserved systolic function. 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 Vaccinated and boostered against covid POD #2 quintuple coronary artery bypass grafting using the left internal mammary artery to the second diagonal artery in a [id number] fashion, then to the mid to distal left anterior descending artery across a calcified plaque in an end to side fashion, left radial artery from the aorta to the ramus intermedius artery, reverse saphenous vein graft from the aorta to the posterior descending artery in a [id number] fashion, then to the posterior lateral branch of the right coronary artery in an end to side fashion, exclusion of the left atrial appe ndage using a 35 mm AtriClip, endoscopic harvesting of the left radial artery, endoscopic harvesting of the whole left greater saphenous vein and the right greater saphenous vein from the groin to the knee level, intraoperative transesophageal echocardiogram and epi-aortic scanning, graft flow measurements using the [email or web address] system Postoperative acute blood loss anemia and thrombocytopenia, expected given hemodilution and cardiopulmonary bypass pump The patient was seen and examined this morning sitting up in a recliner in the intensive care unit in mild distress as he has not wanted to take pain medication, currently having significant postsurgical pain while getting up to be weighed. Denies shortness of breath. Currently in sinus rhythm with occasional PVCs, hemodynamically stable on no inotropes or pressors. Urine output has remained stable overnight. Right internal jugular Cordis, right radial arterial line, mediastinal/left pleural chest tubes all remain present. No new concerns Objective - Vital Signs Vital signs: Vital Signs Temp 98.2 F 04/24/21 04:00 Pulse 97 04/24/21 07:00 Resp 23 04/24/21 07:00 BP 104/57 04/24/21 07:00 Pulse Ox 94 L 04/24/21 07:00 Intake & Output 04/23/21 04/24/21 04/24/21 18:59 06:59 18:59 Intake Total 1938.1 250 20 Output Total 588 912 40 Balance 1350.1 -662 -20 Weight 77.5 kg 90 kg Intake: IV 410 250 20 Sodium Chloride 0.9% 1, 410 250 20 000 ml @ 20 mls/hr IV . Q24H DUSTIN Rx#:[id number] Intake, IV Titration 208.1 Amount Norepinephrine 4 mg In 158.1 Sodium Chloride 0.9% 250 ml @ 0.05 MCG/KG/MIN 15. 602 mls/hr IV .[id number] DUSTIN Rx#:[id number] ceFAZolin 2 gm In Sodium 50 Chloride 0.9% 50 ml @ 100 mls/hr IVPB Q8HR DUSTIN Rx# :[id number] Oral 1320 Output: Chest Tube Drainage 140 382 Chest Tube Left 80 222 Chest Tube Mediastinal 60 160 Drainage 15 Left Wrist 15 Urine 433 530 40 Other: Voiding Method Indwelling Catheter Indwelling Catheter ABP, PAP, CO, CI - Last Documented Arterial Blood Pressure 96/49 Pulmonary Artery Pressure 24/9 Cardiac Output 5 Cardiac Index 2.5 - Exam CONSTITUTIONAL: Appears in mild distress related to surgical pain RESPIRATORY: Lungs sounds diminished bilaterally. Respirations even, nonlabored. Currently on 2 L nasal cannula with oxygen saturation 95%. Able to achieve 750 mL on incentive spirometry. Strong cough. CARDIOVASCULAR: S1, S2 present. Regular rate and rhythm, sinus rhythm on telemetry. Sternum stable. Palpable peripheral pulses bilaterally. No edema present. No calf pain or tenderness noted. Heart hugger in place with patient demonstrating appropriate use. Antiembolism stockings, SCDs present. GASTROINTESTINAL: Abdomen soft, nontender, nondistended. Active bowel sounds present 4 quadrants. Tolerating diet. Positive flatus GENITOURINARY: Montesinos present draining clear, yellow urine. Output overnight 30-50 mL per hour, 963 mL in the last 24 hours INTEGUMENTARY: Skin is warm and dry with evidence of good perfusion. Anterior chest incision well approximated and covered with dry intact dressing. Bilateral lower extremity EVH sites well approximated without redness or drainage. Left radial artery harvest site without redness or drainage, left hand is warm and pink NEUROLOGIC: Cranial nerves II through XII intact MUSKULOSKELETAL: Able to move all extremities, strength equal bilaterally, gait normal PSYCHIATRIC: Alert and oriented to person place and time, appropriate affect, intact judgment and insight INVASIVE LINES AND TUBES: Mediastinal/left pleural chest tubes present and connected to wall suction, no air leaks present. Mediastinal tube with 60 mL serosanguineous drainage overnight, 200 mL in the last 24 hours. Left pleural chest tube with 130 mL serosanguineous drainage overnight, 400 mL in the last 24 hours. Atrial epicardial pacemaker wires present, grounded. Right internal jugular Cordis, right radial arterial line present. - Allied health notes Allied health notes reviewed: nursing - Labs CBC & Chem 7: 04/24/21 04:20 04/24/21 04:20 Labs: Abnormal Lab Results - Last 24 Hours (Table) 04/23/21 04/23/21 04/23/21 Range/Units 09:07 11:06 16:41 RBC (4.30-5.90) m/uL Hgb (13.0-17.5) gm/dL Hct (39.0-53.0) % Sodium (137-145) mmol/L Glucose (74-99) mg/dL POC Glucose (mg/dL) 132 H 124 H 121 H (75-99) mg/dL AST (17-59) U/L Total Protein (6.3-8.2) g/dL Albumin (3.5-5.0) g/dL 04/23/21 04/24/21 04/24/21 Range/Units 21:05 04:20 04:20 RBC 2.55 L (4.30-5.90) m/uL Hgb 8.2 L (13.0-17.5) gm/dL Hct 24.5 L (39.0-53.0) % Sodium 132 L (137-145) mmol/L Glucose 126 H (74-99) mg/dL POC Glucose (mg/dL) 148 H (75-99) mg/dL AST 76 H (17-59) U/L Total Protein 5.0 L (6.3-8.2) g/dL Albumin 3.0 L (3.5-5.0) g/dL 04/24/21 Range/Units 06:12 RBC (4.30-5.90) m/uL Hgb (13.0-17.5) gm/dL Hct (39.0-53.0) % Sodium (137-145) mmol/L Glucose (74-99) mg/dL POC Glucose (mg/dL) 116 H (75-99) mg/dL AST (17-59) U/L Total Protein (6.3-8.2) g/dL Albumin (3.5-5.0) g/dL - Imaging and Cardiology Chest x-ray: report reviewed, image reviewed Assessment and Plan Assessment: 1. Triple-vessel coronary artery disease with ostial left main disease, unstable angina, status post 5 vessel CABG 2. Preserved systolic function 3. Hyperlipidemia, recently started on statin, cholesterol 159, LDL 79.6, triglycerides 111 4. History of traumatic left-sided pneumothorax from a fall 2 with pleural chest tube placement each time 5. Multiple orthopedic surgeries 6. MRSA/E. coli infection to left Achilles heel after surgery 7. Family history of coronary artery disease with grandparents from myocardial infarction in their 70s and 80s 8. Vaccinated and boostered against Covid 9. Postoperative acute blood loss anemia and thrombocytopenia Plan: 1. Continue aspirin, statin, Plavix, beta lelia. Will increase beta lelia as tolerated, increase to 225 mg twice daily today. 2. Continue Norvasc for radial artery spasm prophylaxis 3. Wean O2 as tolerated. Encourage incentive spirometry use 10 times every hour while awake. Bronchodilators per pulmonology 4. Increase activity, ambulate as tolerated. PT/OT/cardiac rehab consulted 5. Will monitor daily labs and x-rays. Electrolyte replacement per protocol. Will give 20 mg IVP lasix 6. Pain control with current medication regimen. Patient encouraged to request pain medication minimum 3 times daily 7. Insulin management per primary care service. Patient is not diabetic, preoperative hemoglobin A1c 5.2% 8. GI/DVT prophylaxis 9. Will discontinue mediastinal chest tube, keep left pleural chest tube for another 24 hours 10. Discontinue Montesinos catheter, may bladder scan and straight cath for greater than 300 mL residual 11. Strict accurate intake and output. Daily weights 12. Discontinue cordis, arterial line 13. Will place transfer orders for [address] [place] [address] cardiac stepdown unit. May transfer when bed available 14. More recommendations to follow Time with Patient: Greater than 30
[2021-04-24 08:39] LABS: Platelet Count 96 k/uL (150-450)
[2021-04-24] MEDS: IPRATROPIUM-ALBUTEROL 3 ML NEB INHALATION SCH ×4 (08:41→20:10)
[2021-04-24] MEDS ORDERED: FUROSEMIDE 10 MG/ML 2 ML VIAL IV ONE (09:22)
[2021-04-24] MEDS: ATORVASTATIN 40 MG TAB PO SCH (09:29)
[2021-04-24] MEDS: CLOPIDOGREL 75 MG TAB PO SCH (09:29)
[2021-04-24] MEDS: ASPIRIN 325 MG TAB PO SCH (09:29)
[2021-04-24] MEDS: METOPROLOL TARTRATE 25 MG TAB PO SCH ×2 (09:29→20:17)
[2021-04-24] MEDS: PANTOPRAZOLE 40 MG TABLET PO SCH (09:29)
--- NOTE | 2021-04-24 10:15 | P.PN ---
Subjective Progress Note Date: 04/24/21 Principal diagnosis: Chest pain On 04/24/2021 patient seen in follow-up in the intensive care unit, today is postoperative day #2 status post quintuple coronary artery bypass grafting with FERRARA to the second diagonal, then to the mid to distal LAD, left radial arterial graft from the aorta to the ramus intermedius, reverse SVG to the PDA and 2 with a posterior lateral branch of the RCA, exclusion of the left atrial appendage using a 35 mm atrophic clip. Patient is doing well, he is awake and alert, in no acute distress, he was successfully weaned and extubated on postoperative day #0, breathing comfortably, is currently on room air. Pulse ox is 98%, hemodynamically stable, in sinus mechanism, he is not on any drips, his maintenance IV fluids is only 0.9 normal saline at a rate of 10 ML per hour. Midsternal incision is clean dry and intact, still has [address], he has left anterior mediastinal chest tubes, and there has been 302 mL and 220 ML from left pleural, and mediastinal chest tube respectively. She has been working on incentive spirometer, today's chest x-ray has been reviewed going chronic parenchymal changes and mild cardiomegaly with persistent bibasilar atelectasis and small to tiny bilateral pleural effusions. Today's labs have b een reviewed, with Bentyl, 3.7, hemoglobin is 8.2, platelet count is 96, sodium is 132, potassium is 4.3, B1 is 20, creatinine 0.94. Patient has had no acute events overnight. Patient is complaining of incisional pain exhalation is currently receiving Norris 53 25 one or 2 tabs every 4 hours, denies any shortness of breath. Tolerating oral intake. Objective - Vital Signs Vital signs: Vital Signs Temp 98.4 F 04/24/21 08:00 Pulse 89 04/24/21 09:00 Resp 28 H 04/24/21 09:00 BP 101/55 04/24/21 09:00 Pulse Ox 98 04/24/21 08:00 Intake & Output 04/23/21 04/24/21 04/24/21 18:59 06:59 18:59 Intake Total 1938.1 250 20 Output Total 588 912 40 Balance 1350.1 -662 -20 Weight 77.5 kg 90 kg Intake: IV 410 250 20 Sodium Chloride 0.9% 1, 410 250 20 000 ml @ 20 mls/hr IV . Q24H DUSTIN Rx#:[id number] Intake, IV Titration 208.1 Amount Norepinephrine 4 mg In 158.1 Sodium Chloride 0.9% 250 ml @ 0.05 MCG/KG/MIN 15. 602 mls/hr IV .[id number] DUSTIN Rx#:[id number] ceFAZolin 2 gm In Sodium 50 Chloride 0.9% 50 ml @ 100 mls/hr IVPB Q8HR DUSTIN Rx# :[id number] Oral 1320 Output: Chest Tube Drainage 140 382 Chest Tube Left 80 222 Chest Tube Mediastinal 60 160 Drainage 15 Left Wrist 15 Urine 433 530 40 Other: Voiding Method Indwelling Catheter Indwelling Catheter Indwelling Catheter ABP, PAP, CO, CI - Last Documented Arterial Blood Pressure 105/58 Pulmonary Artery Pressure 24/9 Cardiac Output 5 Cardiac Index 2.5 - Exam GENERAL EXAM: Alert, pleasant, 65-year-old white male, currently on room air, with pulse ox of 98%, sitting in the chair, comfortable in no apparent distress. HEAD: Normocephalic/atraumatic. EYES: Normal reaction of pupils, equal size. Conjunctiva pink, sclera white. NOSE: Clear with pink turbinates. THROAT: No erythema or exudates. NECK: No masses, no JVD, no thyroid enlargement, no adenopathy. CHEST: No chest wall deformity. Symmetrical expansion. Midsternal incision is clean dry and intact, 2 mediastinal and left pleural chest tube in place, connec esau to Pleur-evac's, no air leak, small amount of serosanguineous output LUNGS: Equal air entry with diminished breath sounds and mild crackles at the bases CVS: Regular rate and rhythm, normal S1 and S2, no gallops, no murmurs, no rubs ABDOMEN: Soft, nontender. No hepatosplenomegaly, normal bowel sounds, no guarding or rigidity. EXTREMITIES: No clubbing, no edema, no cyanosis, 2+ pulses and upper and lower extremities. Lateral lower extremities have ESAU hose on MUSCULOSKELETAL: Muscle strength and tone normal. SPINE: No scoliosis or deformity SKIN: No rashes CENTRAL NERVOUS SYSTEM: Alert and oriented -3. No focal deficits, tone is normal in all 4 extremities. PSYCHIATRIC: Alert and oriented -3. Appropriate affect. Intact judgment and insight. - Labs CBC & Chem 7: 04/24/21 04:20 04/24/21 04:20 Labs: Abnormal Lab Results - Last 24 Hours (Table) 04/23/21 04/23/21 04/23/21 Range/Units 11:06 16:41 21:05 RBC (4.30-5.90) m/uL Hgb (13.0-17.5) gm/dL Hct (39.0-53.0) % Plt Count (150-450) k/uL Lymphocytes # (1.0-4.8) k/uL Sodium (137-145) mmol/L Glucose (74-99) mg/dL POC Glucose (mg/dL) 124 H 121 H 148 H (75-99) mg/dL AST (17-59) U/L Total Protein (6.3-8.2) g/dL Albumin (3.5-5.0) g/dL 04/24/21 04/24/21 04/24/21 Range/Units 04:20 04:20 06:12 RBC 2.55 L (4.30-5.90) m/uL Hgb 8.2 L (13.0-17.5) gm/dL Hct 24.5 L (39.0-53.0) % Plt Count 96 L (150-450) k/uL Lymphocytes # 0.9 L (1.0-4.8) k/uL Sodium 132 L (137-145) mmol/L Glucose 126 H (74-99) mg/dL POC Glucose (mg/dL) 116 H (75-99) mg/dL AST 76 H (17-59) U/L Total Protein 5.0 L (6.3-8.2) g/dL Albumin 3.0 L (3.5-5.0) g/dL Assessment and Plan Plan: Assessment: #1. Symptomatic triple-vessel coronary artery disease with ostial left main disease, and unstable angina, status post 5 vessel coronary artery bypass grafting on 04/22/2021 with FERRARA to the second diagonal, then to the mid to distal LAD, left radial artery to the ramus intermedius, reverse SVG to the PDA, and then 2 the posterior lateral branch of the RCA, exclusion of the left atrial appendage with a 35mm H clip, endoscopic harvesting of the left radial and left and right greater saphenous vein on 04/22/2021. #2. Routine postoperative ventilator management, the patient was successfully weaned and extubated on postoperative day #0 on 04/22/2021, tolerating extubation well. Our, and he is currently on room air on 04/24/2021 #3. Acute blood loss anemia, normal outcome of quintuple coronary artery bypass grafting #4. Hyperlipidemia #5. Previous history of left-sided pneumothorax requiring pleural chest tube placement as a result of a fall #6. Hypertension #7. History of lower extremity peripheral arterial disease #8. Lifelong nonsmoker, preop FEV1 value was 2.7 L or 88% of predicted #9. Right internal carotid stenosis of 50-70% Plan: Today's chest x-ray and labs have been reviewed Patient is doing well, breathing comfortably, he is currently on room air Is complaining of incisional pain, receiving pain medications, Continue encouraging deep breathing and coughing Hemodynamically he has remained stable Still has chest tubes in place Monitor chest tube output Diuretics per CT surgery He is on Plavix and aspirin per CT surgery Lipitor 40 mg daily Vital signs have been stable No arrhythmias Increase activity as tolerated We'll continue to follow I performed a history & physical examination of the patient and discussed their management with my nurse practitioner, Melody Galvin. I reviewed the nurse practitioner's note and agree with the documented findings and plan of care. Lung sounds are positive for dim breath sounds throughout the lung garzon. The findings and the impression was discussed with the patient. I attest to the documentation by the nurse practitioner. Time with Patient: Greater than 30
[2021-04-24 11:48] LABS: Glucose,Whole Blood 86 mg/dL (75-99)
--- NOTE | 2021-04-24 12:36 | P.PN ---
Subjective This is a pleasant 65-year-old white male patient of my partner. He has known peripheral artery disease, hypertension, hyperlipidemia. He was seen by Dr. Diane for intermittent chest pain. He was brought in the hospital for elective cardiac catheterization by Dr. Diane. He was found to have extremely calcified right coronary arteries. There is significant disease found. A coronary bypass graft was recommended. Dr. Sanchez was consultation. The patient underwent 5. Vessel bypass 04/22/2021. Patient is now resting comfortably in the intensive care unit. He is been extubated last night. He indicates his pain is controlled. His is at bedside. He denies any chest pain or shortness of breath at this time. He is not a diabetic. We've been counseled for insulin management due to hyperglycemia post procedure. 04/24/2021: Patient remains in the intensive care unit today. He is postop day #2 for a five-vessel coronary bypass graft. He is resting comfortably. His pain is controlled. He continues have a Montesinos to gravity and a chest tube in place 3. He indicates pain is controlled. He denies any shortness of breath, nausea, or vomiting at this time. Vital she'll control heart rate. He is afebrile. Blood pressure is controlled. Pulse oximetry on room air is 94%. He has normal saline at 20 mL an hour. Intake is 168 and also shift with 513 out for a net of -353 mL. Labs show a DVT scan 8.7, hemoglobin is 8.2 hematocrit 24.5 platelets are 96. There is no shift. Chemistry show hyponatremia 132. Glucose of before lunch today was 86. He is currently on NovoLog scale. No other medications per surgical critical care team. Critical care and thoracic surgery notes reviewed today. Objective - Vital Signs Vital signs: Vital Signs Temp 98.4 F 04/24/21 11:00 Pulse 78 04/24/21 12:18 Resp 32 H 04/24/21 11:00 BP 110/62 04/24/21 11:00 Pulse Ox 94 L 04/24/21 11:00 Intake & Output 04/23/21 04/24/21 04/24/21 18:59 06:59 18:59 Intake Total 1938.1 250 440 Output Total 588 912 670 Balance 1350.1 -662 -230 Weight 77.5 kg 90 kg Intake: IV 410 250 80 Sodium Chloride 0.9% 1, 410 250 80 000 ml @ 20 mls/hr IV . Q24H DUSTIN Rx#:[id number] Intake, IV Titration 208.1 Amount Norepinephrine 4 mg In 158.1 Sodium Chloride 0.9% 250 ml @ 0.05 MCG/KG/MIN 15. 602 mls/hr IV .[id number] DUSTIN Rx#:[id number] ceFAZolin 2 gm In Sodium 50 Chloride 0.9% 50 ml @ 100 mls/hr IVPB Q8HR DUSTIN Rx# :[id number] Oral 1320 360 Output: Chest Tube Drainage 140 382 Chest Tube Left 80 222 Chest Tube Mediastinal 60 160 Drainage 15 Left Wrist 15 Urine 433 530 670 Other: Voiding Method Indwelling Catheter Indwelling Catheter Indwelling Catheter ABP, PAP, CO, CI - Last Documented Arterial Blood Pressure 136/57 Pulmonary Artery Pressure 24/9 Cardiac Output 5 Cardiac Index 2.5 - Exam GENERAL EXAM: Alert, male, comfortable in no apparent distress. NECK: No masses, no JVD, no thyroid enlargement, no adenopathy. CHEST: No chest wall deformity. Symmetrical expansion. Midsternal incision is clean dry and intact, 2 mediastinal and left pleural chest tube in place, c LUNGS: Breath auscultation bilaterally CVS: Regular rate and rhythm, normal S1 and S2, no gallops, no murmurs, no rubs ABDOMEN: Soft, nontender. No hepatosplenomegaly, normal bowel sounds, no guarding or rigidity. EXTREMITIES: No clubbing, no edema, no cyanosis, 2+ pulses and upper and lower extremities. Lateral lower extremities have ESAU hose on MUSCULOSKELETAL: Muscle strength and tone normal. CENTRAL NERVOUS SYSTEM: AAOx3. No focal deficits, tone is normal in all 4 extremities. PSYCHIATRIC: Appropriate affect. Intact judgment and insight. - Labs CBC & Chem 7: 04/24/21 04:20 04/24/21 04:20 Labs: Abnormal Lab Results - Last 24 Hours (Table) 04/23/21 04/23/21 04/24/21 Range/Units 16:41 21:05 04:20 RBC 2.55 L (4.30-5.90) m/uL Hgb 8.2 L (13.0-17.5) gm/dL Hct 24.5 L (39.0-53.0) % Plt Count 96 L (150-450) k/uL Lymphocytes # 0.9 L (1.0-4.8) k/uL Sodium (137-145) mmol/L Glucose (74-99) mg/dL POC Glucose (mg/dL) 121 H 148 H (75-99) mg/dL AST (17-59) U/L Total Protein (6.3-8.2) g/dL Albumin (3.5-5.0) g/dL 04/24/21 04/24/21 Range/Units 04:20 06:12 RBC (4.30-5.90) m/uL Hgb (13.0-17.5) gm/dL Hct (39.0-53.0) % Plt Count (150-450) k/uL Lymphocytes # (1.0-4.8) k/uL Sodium 132 L (137-145) mmol/L Glucose 126 H (74-99) mg/dL POC Glucose (mg/dL) 116 H (75-99) mg/dL AST 76 H (17-59) U/L Total Protein 5.0 L (6.3-8.2) g/dL Albumin 3.0 L (3.5-5.0) g/dL Assessment and Plan (1) S/P five vessel coronary artery bypass Current Visit: Yes Status: Acute Code(s): Z95.1 - PRESENCE OF AORTOCORONARY BYPASS GRAFT SNOMED Code(s): 745160109 (2) CAD (coronary artery disease) Current Visit: Yes Status: Acute Code(s): I25.10 - ATHSCL HEART DISEASE OF [place] CORONARY ARTERY W/O ANG PCTRS SNOMED Code(s): 00098885 (3) Stenosis of right carotid artery Current Visit: Yes Status: Acute Code(s): I65.21 - OCCLUSION AND STENOSIS OF RIGHT CAROTID ARTERY SNOMED Code(s): 127981990104297 (4) PAD (peripheral artery disease) Current Visit: Yes Status: Acute Code(s): I73.9 - PERIPHERAL VASCULAR DISEASE, UNSPECIFIED SNOMED Code(s): 636646929 (5) Essential (primary) hypertension Current Visit: Yes Status: Acute Code(s): I10 - ESSENTIAL (PRIMARY) HYPERTENSION SNOMED Code(s): 52200965 (6) Mixed hyperlipidemia Current Visit: Yes Status: Acute Code(s): E78.2 - MIXED HYPERLIPIDEMIA S NOMED Code(s): 865136856 (7) Hyperglycemia Current Visit: Yes Status: Acute Code(s): R73.9 - HYPERGLYCEMIA, UNSPECIFIED SNOMED Code(s): 32524034 (8) Acute blood loss anemia Current Visit: Yes Status: Acute Code(s): D62 - ACUTE POSTHEMORRHAGIC ANEMIA SNOMED Code(s): 563727707 (9) Thrombocytopenia due to blood loss Current Visit: Yes Status: Acute Code(s): D69.59 - OTHER SECONDARY THROMBOCYTOPENIA SNOMED Code(s): 56348524 Plan: Notes from critical care, thoracic surgery reviewed today. Patient is currently on the multiple medications due to his coronary artery disease and recent bypass. Appears to be improving. continue insulin scale before meals and at bedtime until discharge. His A1c was 5.2%. He is not a diabetic. Other medications per critical care and thoracic surgery. Medically he appears to be doing well he can go to the floor if approved by his attending physician We'll follow the patient in the next 24 hours.
--- NOTE | 2021-04-24 14:08 | P.PN ---
Subjective HISTORY OF PRESENT ILLNESS: This is a 65-year-old male who follows in the office with Dr. Lu. Patient has been having intermittent episodes of chest discomfort. He underwent cardiac catheterization yesterday revealing extremity calcified right and left coronary systems. Critical disease involving right coronary artery. Critical disease involving the left main coronary artery. The patient was evaluated by cardiothoracic surgery and is tentatively scheduled for open heart surgery tomorrow. The patient was examined this morning. He is sitting up in the chair. He denies chest pain or pressure. Denies shortness of breath. Vital signs are stable. Echocardiogram completed revealing ejection fraction 50-55%, trace mitral regurgitation, and trace tricuspid regurgitation. 04/23 Patient seen and examined. Patient underwent CABG with FERRARA to diagonal and then to LAD as well as left radial to ramus and SVG to PDA then to PL branch 04/22/21. Patient was extubated yesterday. He admits to some continued chest pain around the incision site however overall is feeling fairly well. Does not have much of an appetite and has not really eaten much of anything. Blood work today shows hemoglobin 9.1, platelets 112, creatinine 1.0, albumin 3.1, AST 70, AST 21. 04/24 Patient seen and examined. Patient denies any chest pain or pressure. Breathing is stable. He admits he still doesn't have much of an appetite. Was able to stand up and walk around with some help today. PHYSICAL EXAM: VITAL SIGNS: Reviewed. GENERAL: Well-developed in no acute distress. NECK: Supple. No JVD or thyromegaly LUNGS: Respirations even and unlabored. Lungs essentially clear to auscultation bilaterally. HEART: Regular rate and rhythm. S1 and S2 heard. EXTREMITIES: Normal range of motion. No clubbing or cyanosis. Peripheral pulses intact. No lower extremity edema. Right radial cath site with pulse present. 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 Continue beta lelia and high intensity statin. Monitor blood pressure closely. Accurate ins and outs. Peers to be progressing well, continue to monitor chest tube output. Continue with supportive care. Further recommendations to follow. Objective - Vital Signs Vital signs: Vital Signs Temp 98.4 F 04/24/21 11:00 Pulse 82 04/24/21 12:27 Resp 32 H 04/24/21 11:00 BP 110/62 04/24/21 11:00 Pulse Ox 94 L 04/24/21 11:00 Intake & Output 04/23/21 04/24/21 04/24/21 18:59 06:59 18:59 Intake Total 1938.1 250 440 Output Total 588 912 770 Balance 1350.1 -662 -330 Weight 77.5 kg 90 kg Intake: IV 410 250 80 Sodium Chloride 0.9% 1, 410 250 80 000 ml @ 20 mls/hr IV . Q24H [facility] Rx#:[id number] Intake, IV Titration 208.1 Amount Norepinephrine 4 mg In 158.1 Sodium Chloride 0.9% 250 ml @ 0.05 MCG/KG/MIN 15. 602 mls/hr IV .[id number] [facility] Rx#:[id number] ceFAZolin 2 gm In Sodium 50 Chloride 0.9% 50 ml @ 100 mls/hr IVPB Q8HR [facility] Rx# :[id number] Oral 1320 360 Output: Chest Tube Drainage 140 382 Chest Tube Left 80 222 Chest Tube Mediastinal 60 160 Drainage 15 Left Wrist 15 Urine 433 530 770 Other: Voiding Method Indwelling Catheter Indwelling Catheter Indwelling Catheter ABP, PAP, CO, CI - Last Documented Arterial Blood Pressure 136/57 Pulmonary Artery Pressure 24/9 Cardiac Output 5 Cardiac Index 2.5 - Labs CBC & Chem 7: 04/24/21 04:20 04/24/21 04:20 Labs: Abnormal Lab Results - Last 24 Hours (Table) 04/23/21 04/23/21 04/24/21 Range/Units 16:41 21:05 04:20 RBC 2.55 L (4.30-5.90) m/uL Hgb 8.2 L (13.0-17.5) gm/dL Hct 24.5 L (39.0-53.0) % Plt Count 96 L (150-450) k/uL Lymphocytes # 0.9 L (1.0-4.8) k/uL Sodium (137-145) mmol/L Glucose (74-99) mg/dL POC Glucose (mg/dL) 121 H 148 H (75-99) mg/dL AST (17-59) U/L Total Protein (6.3-8.2) g/dL Albumin (3.5-5.0) g/dL 04/24/21 04/24/21 Range/Units 04:20 06:12 RBC (4.30-5.90) m/uL Hgb (13.0-17.5) gm/dL Hct (39.0-53.0) % Plt Count (150-450) k/uL Lymphocytes # (1.0-4.8) k/uL Sodium 132 L (137-145) mmol/L Glucose 126 H (74-99) mg/dL POC Glucose (mg/dL) 116 H (75-99) mg/dL AST 76 H (17-59) U/L Total Protein 5.0 L (6.3-8.2) g/dL Albumin 3.0 L (3.5-5.0) g/dL
[2021-04-24] MEDS: KETOROLAC 30 MG/ML 1 ML VIAL IVP SCH ×3 (15:51→21:37)
[2021-04-24] MEDS: amLODIPine 5 MG TAB PO SCH (15:51)
[2021-04-24 16:51] LABS: Glucose,Whole Blood 70 mg/dL (75-99)
[2021-04-24 20:16] LABS: Glucose,Whole Blood 121 mg/dL (75-99)
[2021-04-24] MEDS: SENNOSIDES-DOCUSATE SODIUM 1 EACH TAB PO SCH (20:17)
[2021-04-25] MEDS: HEPARIN SODIUM,PORCINE/PF 5,000 UNIT/0.5 ML SYRINGE SQ SCH ×3 (00:52→17:15)
[2021-04-25] MEDS: KETOROLAC 30 MG/ML 1 ML VIAL IVP SCH ×3 (04:17→17:14)
[2021-04-25] MEDS: HYDROcodone/APAP 5-325MG 1 EACH TAB PO PRN (05:29)
[2021-04-25 06:07] LABS: Basophils % (A) 0 %; Eosinophils # (A) 0.2 k/uL (0-0.7); Eosinophils % (A) 2 %; HCT 24.1 % (39.0-53.0); HGB 8.2 gm/dL (13.0-17.5); Lymphocytes # (A) 0.8 k/uL (1.0-4.8); Lymphocytes % (A) 10 %; MCV 96.9 fL (80.0-100.0); Mean Platelet Volume 8.9; Monocytes # (A) 0.5 k/uL (0-1.0); Monocytes % (A) 6 %; Neutrophils # (A) 7.2 k/uL (1.3-7.7); Neutrophils % (A) 81 %; Platelet Count 107 k/uL (150-450); RBC 2.49 m/uL (4.30-5.90); RDW 13.3 % (11.5-15.5); WBC 8.9 k/uL (3.8-10.6)
[2021-04-25 06:27] LABS: ALT 33 U/L (4-49); AST 71 U/L (17-59); African American GFR (CKD) >90 (>60 ml/min/1.73 sqM); Albumin 2.8 g/dL (3.5-5.0); Alkaline Phosphatase 57 U/L (38-126); Anion Gap 6 mmol/L; Blood Urea Nitrogen 21 mg/dL (9-20); Calcium 8.6 mg/dL (8.4-10.2); Carbon Dioxide 23 mmol/L (22-30); Chloride 104 mmol/L (98-107); Glucose 112 mg/dL (74-99); Non-African American GFR(CKD) 78 (>60 ml/min/1.73 sqM); Potassium 4.1 mmol/L (3.5-5.1); Sodium 133 mmol/L (137-145)
[2021-04-25 07:09] LABS: Glucose,Whole Blood 108 mg/dL (75-99)
[2021-04-25] MEDS: INSULIN ASPART (NovoLOG) 100 UNIT/ML VIAL SQ SCH ×4 (07:09→21:17)
[2021-04-25] MEDS: PANTOPRAZOLE 40 MG TABLET PO SCH (07:12)
--- NOTE | 2021-04-25 07:22 | XR ---
EXAMINATION TYPE: XR chest 1V portable DATE OF EXAM: 04/25/2021 COMPARISON: 04/24/2021 HISTORY: Postop TECHNIQUE: Single frontal view of the chest is obtained. FINDINGS: Bilateral infiltrate and pleural effusion. Chronic rib deformities are noted. Postoperativ e changes seen. No pneumothorax. Hypertrophic and degenerative change of the spine. Atherosclerotic c hange aorta. IMPRESSION: Bilateral infiltrate and pleural effusion stable.
--- NOTE | 2021-04-25 07:26 | P.PN ---
Subjective Progress Note Date: 04/25/21 Principal diagnosis: Triple-vessel coronary artery disease with ostial left main disease, unstable angina, preserved systolic function. 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 Vaccinated and boostered against covid POD #3 quintuple coronary artery bypass grafting using the left internal mammary artery to the second diagonal artery in a pexl-[id number]-sisp fashion, then to the mid to distal left anterior descending artery across a calcified plaque in an end to side fashion, left radial artery from the aorta to the ramus intermedius artery, reverse saphenous vein graft from the aorta to the posterior descending artery in a [id number] fashion, then to the posterior lateral branch of the right coronary artery in an end to side fashion, exclusion of the left atrial appe ndage using a 35 mm AtriClip, endoscopic harvesting of the left radial artery, endoscopic harvesting of the whole left greater saphenous vein and the right greater saphenous vein from the groin to the knee level, intraoperative transesophageal echocardiogram and epi-aortic scanning, graft flow measurements using the Discourse system Postoperative acute blood loss anemia and thrombocytopenia, expected given hemodilution and cardiopulmonary bypass pump The patient was seen and examined this morning sitting up in a recliner in the intensive care unit in no acute distress. States pain is controlled on current medication regimen, denies shortness of breath. Currently in sinus rhythm, hemodynamically stable on no inotropes or pressors. Left pleural chest tube remains present. Ambulated yesterday with assistance. No new concerns Objective - Vital Signs Vital signs: Vital Signs Temp 98.6 F 04/25/21 04:00 Pulse 70 04/25/21 04:00 Resp 11 L 04/25/21 04:00 BP 109/80 04/25/21 04:00 Pulse Ox 96 04/25/21 04:00 Intake & Output 04/24/21 04/25/21 04/25/21 18:59 06:59 18:59 Intake Total 800 360 Output Total 810 870 50 Balance -10 -510 -50 Weight 88.4 kg Intake: IV 80 Sodium Chloride 0.9% 1, 80 000 ml @ 20 mls/hr IV . Q24H [facility] Rx#:[id number] Oral 720 360 Output: Chest Tube Drainage 40 220 50 Chest Tube Left 40 220 50 Urine 770 650 Other: Voiding Method Indwelling Catheter Urinal # Voids 0 0 ABP, PAP, CO, CI - Last Documented Arterial Blood Pressure 136/57 Pulmonary Artery Pressure 24/9 Cardiac Output 5 Cardiac Index 2.5 - Exam CONSTITUTIONAL: Appears calm, cooperative, no acute distress RESPIRATORY: Lungs sounds diminished bilaterally. Respirations even, nonlabored. Currently on 2 L nasal cannula with oxygen saturation 96%. Able to achieve 1000 mL on incentive spirometry. Strong cough. CARDIOVASCULAR: S1, S2 present. Regular rate and rhythm, sinus rhythm on telemetry. Sternum stable. Palpable peripheral pulses bilaterally. No edema present. No calf pain or tenderness noted. Heart hugger in place with patient demonstrating appropriate use. Antiembolism stockings, SCDs present. GASTROINTESTINAL: Abdomen soft, nontender, nondistended. Active bowel sounds present 4 quadrants. Tolerating diet. Positive flatus GENITOURINARY: Montesinos discontinued yesterday, patient has voided clear, yellow urine INTEGUMENTARY: Skin is warm and dry with evidence of good perfusion. Anterior chest incision well approximated and covered with dry intact dressing. Bilateral lower extremity EVH sites well approximated without redness or drainage. Left radial artery harvest site without redness or drainage, left hand is warm and pink NEUROLOGIC: Cranial nerves II through XII intact MUSKULOSKELETAL: Able to move all extremities, strength equal bilaterally, gait normal PSYCHIATRIC: Alert and oriented to person place and time, appropriate affect, intact judgment and insight INVASIVE LINES AND TUBES: Left pleural chest tube present and connected to wall suction, no air leaks present, 150 mL serosanguineous drainage overnight, 350 mL in the last 24 hours. Atrial epicardial pacemaker wires present, grounded. - Allied health notes Allied health notes reviewed: nursing - Labs CBC & Chem 7: 04/25/21 05:12 04/25/21 05:12 Labs: Abnormal Lab Results - Last 24 Hours (Table) 04/24/21 04/24/21 04/24/21 Range/Units 04:20 16:49 20:15 RBC (4.30-5.90) m/uL Hgb (13.0-17.5) gm/dL Hct (39.0-53.0) % Plt Count 96 L (150-450) k/uL Lymphocytes # 0.9 L (1.0-4.8) k/uL Sodium (137-145) mmol/L BUN (9-20) mg/dL Glucose (74-99) mg/dL POC Glucose (mg/dL) 70 L 121 H (75-99) mg/dL AST (17-59) U/L Total Protein (6.3-8.2) g/dL Albumin (3.5-5.0) g/dL 04/25/21 04/25/21 04/25/21 Range/Units 05:12 05:12 07:07 RBC 2.49 L (4.30-5.90) m/uL Hgb 8.2 L (13.0-17.5) gm/dL Hct 24.1 L (39.0-53.0) % Plt Count 107 L (150-450) k/uL Lymphocytes # 0.8 L (1.0-4.8) k/uL Sodium 133 L (137-145) mmol/L BUN 21 H (9-20) mg/dL Glucose 112 H (74-99) mg/dL POC Glucose (mg/dL) 108 H (75-99) mg/dL AST 71 H (17-59) U/L Total Protein 5.0 L (6.3-8.2) g/dL Albumin 2.8 L (3.5-5.0) g/dL - Imaging and Cardiology Chest x-ray: image reviewed Assessment and Plan Assessment: 1. Triple-vessel coronary artery disease with ostial left main disease, unstable angina, status post 5 vessel CABG 2. Preserved systolic function 3. Hyperlipidemia, recently started on statin, cholesterol 159, LDL 79.6, triglycerides 111 4. History of traumatic left-sided pneumothorax from a fall 2 with pleural chest tube placement each time 5. Multiple orthopedic surgeries 6. MRSA/E. coli infection to left Achilles heel after surgery 7. Family history of coronary artery disease with grandparents from myocardial infarction in their 70s and 80s 8. Vaccinated and boostered against Covid 9. Postoperative acute blood loss anemia and thrombocytopenia Plan: 1. Continue aspirin, statin, Plavix, beta lelia. Will increase beta lelia as tolerated 2. Continue Norvasc for radial artery spasm prophylaxis 3. Wean O2 as tolerated. Encourage incentive spirometry use 10 times every hour while awake. Bronchodilators per pulmonology 4. Increase activity, ambulate as tolerated. PT/OT/cardiac rehab following 5. Will monitor daily labs and x-rays. Electrolyte replacement per protocol 6. Pain control with current medication regimen. Patient encouraged to request pain medication minimum 3 times daily 7. Insulin management per primary care service. Patient is not diabetic, preoperative hemoglobin A1c 5.2% 8. GI/DVT prophylaxis 9. Will discontinue left pleural chest tube 10. Will discontinue epicardial pacemaker wire this afternoon, patient to remain on bedrest for 1 hour post-wire removal 11. Strict accurate intake and output. Daily weights 12. Transfer orders placed yesterday for 3 [facility] cardiac stepdown unit. May transfer when bed available 13. Discharge planning in progress. Anticipate discharge to home with home care in the next 24-48 hours 14. More recommendations to follow Time with Patient: Greater than 30
[2021-04-25] MEDS: IPRATROPIUM-ALBUTEROL 3 ML NEB INHALATION SCH ×4 (08:33→19:57)
[2021-04-25] MEDS ORDERED: FUROSEMIDE 10 MG/ML 2 ML VIAL IV ONE (09:29)
--- NOTE | 2021-04-25 09:30 | P.PN ---
Subjective Progress Note Date: 04/25/21 On 04/25/2021 patient seen in follow-up in the intensive care unit, today is postoperative day #3 status post quintuple coronary artery bypass grafting with FERRARA to the second diagonal, then to the mid to distal LAD, left radial arterial graft from the aorta to the ramus intermedius, reverse SVG to the PDA and 2 with a posterior lateral branch of the RCA, exclusion of the left atrial appendage using a 35 mm atrophic clip. Patient is doing well, he is awake and alert, in no acute distress, he was successfully weaned and extubated on postoperative day #0, breathing comfortably, is currently on room air. Pulse ox is 98%, hemodynamically stable, in sinus mechanism, he is not on any drips, his carissa ntenance IV fluids is only 0.9 normal saline at a rate of 10 ML per hour. Midsternal incision is clean dry and intact, the patient did have chest tubes which all were taken out this morning by cardiothoracic surgery clinic. Chest x-ray from today showed no evidence of any pneumothorax. It showed adequate expansion of both lungs bilaterally. Pain is under adequate control for now. The blood work from today shows a hemoglobin at 8.2, comparable to yesterday with a white cell count of 8.9. Platelet count improved at 107. Electrolytes showed normal creatinine, normal electrolytes, blood sugar is at 108. LFTs are normal. Chest x-ray as mentioned showed adequate expansion of both lungs katt aterally. Small residual atelectatic changes and pleural effusions were seen in the lung bases bilaterally. Objective - Vital Signs Vital signs: Vital Signs Temp 98.6 F 04/25/21 04:00 Pulse 84 04/25/21 08:44 Resp 11 L 04/25/21 04:00 BP 109/80 04/25/21 04:00 Pulse Ox 96 04/25/21 04:00 Intake & Output 04/24/21 04/25/21 04/25/21 18:59 06:59 18:59 Intake Total 800 360 Output Total 810 870 50 Balance -10 -510 -50 Weight 88.4 kg Intake: IV 80 Sodium Chloride 0.9% 1, 80 000 ml @ 20 mls/hr IV . Q24H COUNTS INCLUDE 234 BEDS AT THE [facility] Rx#:[id number] Oral 720 360 Output: Chest Tube Drainage 40 220 50 Chest Tube Left 40 220 50 Urine 770 650 Other: Voiding Method Indwelling Catheter Urinal # Voids 0 0 ABP, PAP, CO, CI - Last Documented Arterial Blood Pressure 136/57 Pulmonary Artery Pressure 24/9 Cardiac Output 5 Cardiac Index 2.5 - Exam GENERAL EXAM: Alert, pleasant, 65-year-old white male, currently on room air, with pulse ox of 98%, sitting in the chair, comfortable in no apparent distress. HEAD: Normocephalic/atraumatic. EYES: Normal reaction of pupils, equal size. Conjunctiva pink, sclera white. NOSE: Clear with pink turbinates. THROAT: No erythema or exudates. NECK: No masses, no JVD, no thyroid enlargement, no adenopathy. CHEST: No chest wall deformity. Symmetrical expansion. Midsternal incision is clean dry and intact LUNGS: Equal air entry with diminished breath sounds and mild crackles at the bases CVS: Regular rate and rhythm, normal S1 and S2, no gallops, no murmurs, no rubs ABDOMEN: Soft, nontender. No hepatosplenomegaly, normal bowel sounds, no guarding or rigidity. EXTREMITIES: No clubbing, no edema, no cyanosis, 2+ pulses and upper and lower extremities. Lateral lower extremities have ESAU hose on MUSCULOSKELETAL: Muscle strength and tone normal. SPINE: No scoliosis or deformity SKIN: No rashes CENTRAL NERVOUS SYSTEM: Alert and oriented -3. No focal deficits, tone is normal in all 4 extremities. PSYCHIATRIC: Alert and oriented -3. Appropriate affect. Intact judgment and insight. - Labs CBC & Chem 7: 04/25/21 05:12 04/25/21 05:12 Labs: Abnormal Lab Results - Last 24 Hours (Table) 04/24/21 04/24/21 04/25/21 Range/Units 16:49 20:15 05:12 RBC 2.49 L (4.30-5.90) m/uL Hgb 8.2 L (13.0-17.5) gm/dL Hct 24.1 L (39.0-53.0) % Plt Count 107 L (150-450) k/uL Lymphocytes # 0.8 L (1.0-4.8) k/uL Sodium (137-145) mmol/L BUN (9-20) mg/dL Glucose (74-99) mg/dL POC Glucose (mg/dL) 70 L 121 H (75-99) mg/dL AST (17-59) U/L Total Protein (6.3-8.2) g/dL Albumin (3.5-5.0) g/dL 04/25/21 04/25/21 Range/Units 05:12 07:07 RBC (4.30-5.90) m/uL Hgb (13.0-17.5) gm/dL Hct (39.0-53.0) % Plt Count (150-450) k/uL Lymphocytes # (1.0-4.8) k/uL Sodium 133 L (137-145) mmol/L BUN 21 H (9-20) mg/dL Glucose 112 H (74-99) mg/dL POC Glucose (mg/dL) 108 H (75-99) mg/dL AST 71 H (17-59) U/L Total Protein 5.0 L (6.3-8.2) g/dL Albumin 2.8 L (3.5-5.0) g/dL Assessment and Plan Plan: #1. Symptomatic triple-vessel coronary artery disease with ostial left main disease, and unstable angina, status post 5 vessel coronary artery bypass grafting on 04/22/2021 with FERRARA to the second diagonal, then to the mid to distal LAD, left radial artery to the ramus intermedius, reverse SVG to the PDA, and then 2 the posterior lateral branch of the RCA, exclusion of the left atrial appendage with a 35mm H clip, endoscopic harvesting of the left radial and left and right greater saphenous vein on 04/22/2021. #2. Routine postoperative ventilator management, the patient was successfully weaned and extubated on postoperative day #0 on 04/22/2021, tolerating ex tubation well. Chest tubes were removed today and the patient is currently on oxygen using incentive spirometer. #3. Acute blood loss anemia, normal outcome of quintuple coronary artery bypass grafting, hemoglobin stable at 8.2 #4. Hyperlipidemia #5. Previous history of left-sided pneumothorax requiring pleural chest tube placement as a result of a fall #6. Hypertension #7. History of lower extremity peripheral arterial disease #8. Lifelong nonsmoker, preop FEV1 value was 2.7 L or 88% of predicted #9. Right internal carotid stenosis of 50-70% Plan: Today's chest x-ray reviewed Patient is doing well, breathing comfortably, he is currently on room air Chest tube removed Lasix 20 mg IV x1 Continue encouraging deep breathing and coughing Hemodynamically he has remained stable He is on Plavix and aspirin per CT surgery Lipitor 40 mg daily Vital signs have been stable No arrhythmias Increase activity as tolerated We'll continue to follow
[2021-04-25] MEDS: ATORVASTATIN 40 MG TAB PO SCH (09:39)
[2021-04-25] MEDS: METOPROLOL TARTRATE 25 MG TAB PO SCH ×2 (09:39→21:17)
[2021-04-25] MEDS: ASPIRIN 325 MG TAB PO SCH (09:39)
[2021-04-25] MEDS: CLOPIDOGREL 75 MG TAB PO SCH (09:39)
[2021-04-25] MEDS ORDERED: MELATONIN 3 MG TABLET PO PRN (09:44)
[2021-04-25 11:48] LABS: Glucose,Whole Blood 99 mg/dL (75-99)
[2021-04-25] MEDS: ISOSORBIDE MONONITRATE ER 30 MG TAB.ER.24H PO SCH (12:05)
[2021-04-25] MEDS: METOPROLOL SUCCINATE (ER) 25 MG TAB.ER.24H PO SCH (12:05)
[2021-04-25] MEDS: amLODIPine 5 MG TAB PO SCH (12:28)
[2021-04-25 17:12] LABS: Glucose,Whole Blood 133 mg/dL (75-99)
[2021-04-25] MEDS ORDERED: METOPROLOL TARTRATE 25 MG TAB PO STA (18:05)
[2021-04-25 21:08] LABS: Glucose,Whole Blood 122 mg/dL (75-99)
[2021-04-25] MEDS: SENNOSIDES-DOCUSATE SODIUM 1 EACH TAB PO SCH (21:17)
[2021-04-26] MEDS: HEPARIN SODIUM,PORCINE/PF 5,000 UNIT/0.5 ML SYRINGE SQ SCH ×2 (00:03→08:18)
[2021-04-26] MEDS: KETOROLAC 30 MG/ML 1 ML VIAL IVP SCH ×3 (00:03→11:26)
[2021-04-26 06:19] LABS: Glucose,Whole Blood 101 mg/dL (75-99)
[2021-04-26] MEDS: PANTOPRAZOLE 40 MG TABLET PO SCH (06:20)
[2021-04-26] MEDS: INSULIN ASPART (NovoLOG) 100 UNIT/ML VIAL SQ SCH ×2 (06:20→12:28)
[2021-04-26 06:28] VITALS: RESP 18
[2021-04-26 07:38] LABS: HCT 25.7 % (39.0-53.0); HGB 8.6 gm/dL (13.0-17.5); MCH 32.7 pg (25.0-35.0); MCHC 33.6 g/dL (31.0-37.0); MCV 97.2 fL (80.0-100.0); Mean Platelet Volume 8.7; Platelet Count 156 k/uL (150-450); RBC 2.64 m/uL (4.30-5.90); RDW 13.7 % (11.5-15.5); WBC 8.5 k/uL (3.8-10.6)
[2021-04-26 07:49] LABS: Calcium 8.7 mg/dL (8.4-10.2); Potassium 3.8 mmol/L (3.5-5.1)
[2021-04-26] MEDS ORDERED: POTASSIUM CHLORIDE ER 20 MEQ TAB.ER PO STA (07:54)
[2021-04-26] MEDS: IPRATROPIUM-ALBUTEROL 3 ML NEB INHALATION SCH ×2 (07:56→12:05)
--- NOTE | 2021-04-26 07:57 | P.PN ---
Subjective Progress Note Date: 04/26/21 Principal diagnosis: Triple-vessel coronary artery disease with ostial left main disease, unstable angina, preserved systolic function. 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 Vaccinated and boostered against covid POD #4 quintuple coronary artery bypass grafting using the left internal mammary artery to the second diagonal artery in a [id number] fashion, then to the mid to distal left anterior descending artery across a calcified plaque in an end to side fashion, left radial artery from the aorta to the ramus intermedius artery, reverse saphenous vein graft from the aorta to the posterior descending artery in a [id number]-[id number] fashion, then to the posterior lateral branch of the right coronary artery in an end to side fashion, exclusion of the left atrial appe ndage using a 35 mm AtriClip, endoscopic harvesting of the left radial artery, endoscopic harvesting of the whole left greater saphenous vein and the right greater saphenous vein from the groin to the knee level, intraoperative transesophageal echocardiogram and epi-aortic scanning, graft flow measurements using the Content Raven system Postoperative acute blood loss anemia and thrombocytopenia, expected given hemodilution and cardiopulmonary bypass pump The patient was seen and examined this morning sitting up in a recliner on the cardiac stepdown unit in no acute distress. States pain is controlled on current medication regimen, denies shortness of breath. Currently in sinus rhythm, hemodynamically stable. Has ambulated without difficulty. Patient would like to go home today. No new concerns Objective - Vital Signs Vital signs: Vital Signs Temp 98.5 F 04/26/21 06:15 Pulse 83 04/26/21 06:15 Resp 18 04/26/21 06:15 BP 123/74 04/26/21 06:15 Pulse Ox 94 L 04/26/21 06:15 Intake & Output 04/25/21 04/26/21 04/26/21 18:59 06:59 18:59 Intake Total 780 Output Total 975 400 Balance -195 -400 Intake: Oral 780 Output: Chest Tube Drainage 50 Chest Tube Left 50 Urine 925 400 Other: Voiding Method Urinal Urinal # Voids 1 # Bowel Movements 1 ABP, PAP, CO, CI - Last Documented Arterial Blood Pressure 136/57 Pulmonary Artery Pressure 24/9 Cardiac Output 5 Cardiac Index 2.5 - Exam CONSTITUTIONAL: Appears calm, cooperative, no acute distress RESPIRATORY: Lungs sounds diminished bilaterally. Respirations even, nonlabored. Currently on room air with oxygen saturation 94%. Able to achieve 1000 mL on incentive spirometry. Strong cough. CARDIOVASCULAR: S1, S2 present. Regular rate and rhythm, sinus rhythm on telemetry. Sternum stable. Palpable peripheral pulses bilaterally. No edema present. No calf pain or tenderness noted. Heart hugger in place with patient demonstrating appropriate use. Antiembolism stockings, SCDs present. GASTROINTESTINAL: Abdomen soft, nontender, nondistended. Active bowel sounds present 4 quadrants. Tolerating diet. Positive bowel movement GENITOURINARY: Continues to void clear, yellow urine INTEGUMENTARY: Skin is warm and dry with evidence of good perfusion. Anterior chest incision well approximated. Bilateral lower extremity EVH sites well approximated without redness or drainage. Left radial artery harvest site without redness or drainage, left hand is warm and pink NEUROLOGIC: Cranial nerves II through XII intact MUSKULOSKELETAL: Able to move all extremities, strength equal bilaterally, gait normal PSYCHIATRIC: Alert and oriented to person place and time, appropriate affect, intact judgment and insight - Allied health notes Allied health notes reviewed: nursing - Labs CBC & Chem 7: 04/26/21 07:13 04/26/21 07:13 Labs: Abnormal Lab Results - Last 24 Hours (Table) 04/25/21 04/25/21 04/26/21 Range/Units 17:04 21:06 06:18 RBC (4.30-5.90) m/uL Hgb (13.0-17.5) gm/dL Hct (39.0-53.0) % Sodium (137-145) mmol/L Glucose (74-99) mg/dL POC Glucose (mg/dL) 133 H 122 H 101 H (75-99) mg/dL 04/26/21 04/26/21 Range/Units 07:13 07:13 RBC 2.64 L (4.30-5.90) m/uL Hgb 8.6 L (13.0-17.5) gm/dL Hct 25.7 L (39.0-53.0) % Sodium 136 L (137-145) mmol/L Glucose 102 H (74-99) mg/dL POC Glucose (mg/dL) (75-99) mg/dL - Imaging and Cardiology Chest x-ray: image reviewed Assessment and Plan Assessment: 1. Triple-vessel coronary artery disease with ostial left main disease, unstable angina, status post 5 vessel CABG 2. Preserved systolic function 3. Hyperlipidemia, recently started on statin, cholesterol 159, LDL 79.6, triglycerides 111 4. History of traumatic left-sided pneumothorax from a fall 2 with pleural chest tube placement each time 5. Multiple orthopedic surgeries 6. MRSA/E. coli infection to left Achilles heel after surgery 7. Family history of coronary artery disease with grandparents from myocardial infarction in their 70s and 80s 8. Vaccinated and boostered against Covid 9. Postoperative acute blood loss anemia and thrombocytopenia Plan: 1. Continue aspirin, statin, Plavix, beta lelia. Will increase beta lelia as tolerated 2. Continue Norvasc for radial artery spasm prophylaxis 3. Encourage incentive spirometry use 10 times every hour while awake. Bronchodilators per pulmonology 4. Increase activity, ambulate as tolerated. PT/OT/cardiac rehab following 5. Will monitor daily labs and x-rays. Electrolyte replacement per protocol. Will give 20 mg IVP lasix today 6. Pain control with current medication regimen. Patient encouraged to request pain medication minimum 3 times daily 7. Insulin management per primary care service. Patient is not diabetic, preoperative hemoglobin A1c 5.2% 8. GI/DVT prophylaxis 9. Strict accurate intake and output. Daily weights 10. Discharge planning in progress. Anticipate discharge to home with home care this afternoon 11. More recommendations to follow Time with Patient: Greater than 30
[2021-04-26] MEDS: ATORVASTATIN 40 MG TAB PO SCH (08:17)
[2021-04-26] MEDS: CLOPIDOGREL 75 MG TAB PO SCH (08:17)
[2021-04-26] MEDS: METOPROLOL TARTRATE 25 MG TAB PO SCH (08:18)
[2021-04-26] MEDS: ASPIRIN 325 MG TAB PO SCH (08:18)
[2021-04-26] MEDS ORDERED: FUROSEMIDE 10 MG/ML 2 ML VIAL IV ONE (08:30)
--- NOTE | 2021-04-26 08:51 | XR ---
EXAMINATION TYPE: XR chest 2V DATE OF EXAM: 04/26/2021 COMPARISON: 04/25/2021 HISTORY: 65-year-old male postcardiac surgery TECHNIQUE: PA and lateral views FINDINGS: Median sternotomy wires are present. Postoperative clips in the mediastinum. Heart borderline in size . Mild interstitial densities similar. Improving trace pleural effusions. Old left-sided rib fracture deformities. No appreciable pneumothorax. IMPRESSION: There may be mild residual pulmonary vascular congestion. Improving trace effusions. Improving retroc ardiac atelectasis.
--- NOTE | 2021-04-26 10:54 | P.DS ---
Providers Date of admission: 04/22/21 07:36 Expected date of discharge: 04/26/21 Attending physician: Cachorro Mckenzie Consults: 04/20/21 08:18 Consult Physician Routine Consulting Provider: Ricky Tyler Consult Reason/Comments: evaluate for CABG Do you want consulting provider notified?: Already Contacted 04/20/21 09:08 Consult Physician Routine Consulting Provider: Abhijeet Morejon Consult Reason/Comments: pulm clearence for CABG Do you want consulting provider notified?: Already Contacted 04/21/21 12:27 Consult to Anesthesia Routine Consulting Provider: Anesthesia,Services Consult Reason/Comments: Cardiac Surgery Pre-Op 04/22/21 16:24 Consult Physician Routine Consulting Provider: Florentino Beltran Jr Consult Reason/Comments: med mgmt Do you want consulting provider notified?: Yes Consult Physician Routine Consulting Provider: John Lujan Consult Reason/Comments: Slag Skimmer Consult: post cardiac surgery Do you want consulting provider notified?: Yes Primary care physician: [facility] Course: FINAL DIAGNOSIS: 1. Triple-vessel coronary artery disease with ostial left main disease, unstable angina 2. Preserved systolic function 3. Hyperlipidemia, recently started on statin, cholesterol 159, LDL 79.6, triglycerides 111 4. History of traumatic left-sided pneumothorax from fall 2 5. Family history of coronary artery disease 6. Vaccinated and boosted against Covid 7. Postoperative acute blood loss anemia and thrombocytopenia, expected PRINCIPAL PROCEDURE: 1. Quintuple coronary artery bypass grafting using the left internal mammary artery to the second diagonal artery in a [id number]-[id number] fashion, then to the mid to distal left anterior descending artery across a calcified plaque in an end to side fashion, left radial artery from the aorta to the ramus intermedius artery, reverse saphenous vein graft from the aorta to the posterior descending artery in a [id number] fashion, then to the posterior lateral branch of the right coronary artery in an end to side fashion 2. Exclusion of the left atrial appendage using a 35 mm AtriClip 3. Endoscopic harvesting of the left radial artery 4. Endoscopic harvesting of the whole left greater saphenous veins and the right greater saphenous vein from the groin to the knee level 5. Intraoperative transesophageal echocardiogram and epi-aortic scanning 6. Graft flow measurements using the [employer] system HISTORY OF PRESENT ILLNESS: This is a 65-year-old very fit and active gentleman who follows on an outpatient basis with Dr. Beltran for primary care. For the last couple of weeks the patient reported chest discomfort with occasional mild shortness of breath with exertion, most commonly when he is on the treadmill. His symptoms were relieved with rest. He was recommended to undergo heart catheterization which demonstrated 80-90% ostial left main disease with triple- vessel severely calcified coronary artery disease. Consultation was placed to cardiothoracic surgery for revascularization recommendations. He was recommended to undergo urgent surgical myocardial revascularization. The usual perioperative course was discussed in detail with the patient and his , all risks and benefits were explained, all questions were answered, and consent was obtained to proceed with surgery. He was kept inpatient due to the nature of his disease process. HOSPITAL COURSE: The patient was brought to the preoperative area 04/22/21, prepared in the usual fashion, and subsequently taken to the operating room where Dr. Mckenzie performed 5 vessel CABG. Upon completion of surgery the patient was transferred to the cardiovascular intensive care unit where he was recovered and monitored hemodynamically. He was extubated, all lines, tubes, and drips were discontinued when appropriate, and he was transferred to 3 S. cardiac stepdown unit for further monitoring and rehabilitation. His oxygen was titrated down, he continued to work with physical and occupational therapy, he was tolerating oral diet, his pain was controlled, and he was ready to be discharged to home with [facility] care on postoperative day #4. He received written and verbal instruction regarding his medications, activity restrictions, signs and symptoms requiring physician notification, and follow-up appointments. Patient Condition at Discharge: Stable Plan - Discharge Summary Discharge Rx Participant: No New Discharge Prescriptions: New Furosemide [Lasix] 20 mg PO DAILY #5 tab Melatonin 6 mg PO HS PRN tablet PRN Reason: Insomnia amLODIPine [Norvasc] 5 mg PO DAILY@1200 #30 tab Clopidogrel [Plavix] 75 mg PO DAILY #30 tab Acetaminophen Tab [Tylenol] 650 mg PO Q4HR PRN tab PRN Reason: Fever And/ Or Pain Metoprolol Tartrate [Lopressor] 25 mg PO BID #60 tab Potassium Chloride [Potassium Chloride ER] 10 meq PO DAILY #5 tab Pantoprazole [Protonix] 40 mg PO AC-BRKFST #30 tab Sennosides-Docusate Sodium [Senokot-S] 2 each PO HS PRN tab PRN Reason: Constipation Continue Aspirin 81 mg PO DAILY Rosuvastatin [Crestor] 20 mg PO DAILY Discontinued Isosorbide Mononitrate [Isosorbide Mononitrate ER] 30 mg PO DAILY Discharge Medication List Aspirin 81 mg PO DAILY 04/19/21 [History] Rosuvastatin [Crestor] 20 mg PO DAILY 04/19/21 [History] Acetaminophen Tab [Tylenol] 650 mg PO Q4HR PRN tab 04/26/21 [Rx] Clopidogrel [Plavix] 75 mg PO DAILY #30 tab 04/26/21 [Rx] Furosemide [Lasix] 20 mg PO DAILY #5 tab 04/26/21 [Rx] Melatonin 6 mg PO HS PRN tablet 04/26/21 [Rx] Metoprolol Tartrate [Lopressor] 25 mg PO BID #60 tab 04/26/21 [Rx] Pantoprazole [Protonix] 40 mg PO AC-BRKFST #30 tab 04/26/21 [Rx] Potassium Chloride [Potassium Chloride ER] 10 meq PO DAILY #5 tab 04/26/21 [Rx] Sennosides-Docusate Sodium [Senokot-S] 2 each PO HS PRN tab 04/26/21 [Rx] amLODIPine [Norvasc] 5 mg PO DAILY@1200 #30 tab 04/26/21 [Rx] Follow up Appointment(s)/Referral(s): Donna Lopez NPC [Nurse Practitioner] - 05/02/21 1:45 pm (You will be seen in the surgeon's office located behind the hospital, [facility], [address] [place] [address], [address], phone number [phone]) Rehab Maryam ,Cardiac [NON-STAFF] - 4 Weeks (You will be called in 4-6 weeks for evaluation for cardiac rehab) Yosi Lu MD [STAFF PHYSICIAN] - 05/10/21 3:30 pm Cachorro Mckenzie MD [STAFF PHYSICIAN] - 05/20/21 10:00 am Florentino Beltran Jr, DO [Primary Care Provider] - 04/29/21 8:30 am Marielos Santoyo NPC [Nurse Practitioner] - 05/11/21 3:15 pm [facility], [NON-STAFF] - Ambulatory/Diagnostic Orders: Complete Blood Count w/diff [LAB.AMB] Time Frame: 3 Days, Location: None Selected Comprehensive Metabolic Panel [LAB.AMB] Time Frame: 3 Days, Location: None Selected Activity/Diet/Wound Care/Special Instructions: DISCHARGE INSTRUCTIONS: 1. No driving for 4 weeks, or until physician gives their ok. 2. The patient should sleep in their own bed, no medical bed needed. 3. Stairs are not an issue. If the bedroom is upstairs, it is advised that the patient go up at night and down in the morning for the first week. Go slowly, using handrail and take 1 step at a time. 4. ESAU hose are to be worn for 30 days or until physician discontinues. 5. Heart hugger is to be worn 100% of the time until physician discontinues.(except when showering) 6. No lifting, pushing, or pulling more than 10 pounds for 12 weeks. The physician will advise of any restriction changes. 7. The patient is expected to continue the prescribed walking program. 8. Continue pain control per as needed orders. 9. Continue with incentive spirometry and splinting/heart hugger until otherwise directed by the physician. 10. Must shower daily using liquid antibacterial soap and a separate white washcloth for each individual incision. 11. Routine sternal incision care. No powders, lotions, ointments on incisions. No dressings are necessary on incisions unless they are draining. Dermabond tape is to remain on sternal incision until surgeon follow-up. 12. Please call surgeon/CONTRACT ADMINISTRATION MANAGER for temp greater than 101 F or purulent drainage from incisions. 13. You should weigh yourself every morning and record weight, bring log with you to your follow-up appointments 14. All prescriptions given by surgeon for 30 days. Refills need to be filled through occupational therapy supervisor/primary care physician. 15. A Red armband has been placed on the patient. It should be worn for 30 days post surgery and will be removed by the cardiac surgeons. If an ER visit is necessary, please make sure the number on the Red armband is called. 16. You have been referred to and are expected to begin Cardiac Rehab in approximately 4-6 weeks. HOME HEALTH SERVICES TO PROVIDE: RN SKILLED HOME CARE SERVICES FOR POST-OP SURGICAL PATIENTS WITH THE FOLLOWING: Coronary Artery Bypass Surgery (CABG), Mitral Valve Replacement/Repair ( MVR), Aortic Valve Replacement/Repair (AVR) RN TO CONTINUE EDUCATION FROM ``ROAD TO A HEALTH HEART PATIENT EDUCATION MANUAL (GIVEN TO PATIENT IN THE HOSPITAL) MEDICATION RECONCILIATION WITH EDUCATION NEEDED ON FIRST HOME VISIT EMPHASIZE IMPORTANCE OF WEARING BREAST SUPPORT/HEART HUGGER ENCOURAGE USE OF INCENTIVE SPIROMETER 10 X EVERY HOUR WHILE AWAKE ENCOURAGE UTILIZATION OF LOWER EXTREMITY COMPRESSION STOCKINGS/ESAU HOSE and ELEVATE LEGS ABOVE LEVEL OF HEART WHILE AT REST. ENCOURAGE AMBULATION 3-5x/day INCREASING TOLERATES, WHILE AVOIDING EXTREMES IN TEMPERATURE FREQUENCY: RN TO OPEN THE PATIENT WITHIN 24 HOURS OF DISCHARGE FROM THE HOSPITAL WITH TELEHEALTH INSTALLED AT [facility], RN TO VISIT 2-3 X A WEEK FOR 4 WEEKS ESTABLISHED BY PATIENT NEEDS. LABORATORY: CBC, CMP TO BE DRAWN ON THE THIRD DAY HOME, (RAN STAT) FAX RESULTS TO [phone]. TELEHEALTH PARAMETERS: WEIGHT: NOTIFY MD OF WEIGHT GAIN OF 2 LBS IN 24 HOURS OR 5 LBS IN ONE WEEK HR: NOTIFY MD OF HR <55 BPM OR HR>100 BPM BP: NOTIFY MD IF BP <90/55 OR BP>140/100 O2 SAT: NOTIFY MD IF PO2<93% ON ROOM AIR SEND TELEHEALTH REPORT TO CASE PACKER AND CARDIOVASCULAR SURGEON THE FIRST WEEK OF CARE AND THEN BI-WEEKLY. PLEASE ADDITIONALLY COMMUNICATE ANY ABNORMALS AND NEW FINDINGS TO THE SURGEONS OFFICE. Discharge Disposition: HOME WITH HOME HEALTH SERVICES
[2021-04-26 11:27] VITALS: BP 129/73; PULSE 81; TEMP 98.1
[2021-04-26] MEDS: amLODIPine 5 MG TAB PO SCH (11:29)
--- NOTE | 2021-04-26 12:52 | P.PN ---
Subjective This is a 65-year-old male who follows in the office with Dr. Lu. Patient has been having intermittent episodes of chest discomfort. He underwent cardiac catheterization yesterday revealing extremity calcified right and left coronary systems. Critical disease involving right coronary artery. Critical disease involving the left main coronary artery. Echocardiogram completed revealing ejection fraction 50-55%, trace mitral regurgitation, and trace tricuspid regurgitation. Patient underwent CABG with FERRARA to diagonal and then to LAD as well as left radial to ramus and SVG to PDA then to PL branch 04/22/21. 04/26/2021 Patient seen and examined. He is up in the bedside chair. Patient denies any chest pain or pressure. Breathing is stable. Possible discharge today. Vitals signs are stable. PHYSICAL EXAM: VITAL SIGNS: Reviewed. GENERAL: Well-developed in no acute distress. NECK: Supple. No JVD or thyromegaly LUNGS: Respirations even and unlabored. Lungs essentially clear to auscultation bilaterally. HEART: Regular rate and rhythm. S1 and S2 heard. EXTREMITIES: Normal range of motion. No clubbing or cyanosis. Peripheral pulses intact. No lower extremity edema. Right radial cath site with pulse p resent. ASSESSMENT: Triple vessel coronary artery disease with left main disease, s/p 5 vessel CABG 04/22 Right carotid stenosis Peripheral arterial disease Hyperlipidemia PLAN: Continue dual antiplatelets. Continue beta lelia and high intensity statin. Encourage incentive spirometry use 10 times every hour while awake Increase activity, ambulate as tolerated. Plan for possible discharge home today Patient to follow up with Dr. Lu outpatient Objective - Vital Signs Vital signs: Vital Signs Temp 98.1 F 04/26/21 11:26 Pulse 81 04/26/21 11:26 Resp 18 04/26/21 11:26 BP 129/73 04/26/21 11:26 Pulse Ox 97 04/26/21 11:26 Intake & Output 04/25/21 04/26/21 04/26/21 18:59 06:59 18:59 Intake Total 780 Output Total 975 400 575 Balance -195 -400 -575 Weight 87.4 kg Intake: Oral 780 Output: Chest Tube Drainage 50 Chest Tube Left 50 Urine 925 400 575 Other: Voiding Method Urinal Urinal Urinal # Voids 1 # Bowel Movements 1 ABP, PAP, CO, CI - Last Documented Arterial Blood Pressure 136/57 Pulmonary Artery Pressure 24/9 Cardiac Output 5 Cardiac Index 2.5 - Labs CBC & Chem 7: 04/26/21 07:13 04/26/21 07:13 Labs: Abnormal Lab Results - Last 24 Hours (Table) 04/25/21 04/25/21 04/26/21 Range/Units 17:04 21:06 06:18 RBC (4.30-5.90) m/uL Hgb (13.0-17.5) gm/dL Hct (39.0-53.0) % Sodium (137-145) mmol/L Glucose (74-99) mg/dL POC Glucose (mg/dL) 133 H 122 H 101 H (75-99) mg/dL 04/26/21 04/26/21 Range/Units 07:13 07:13 RBC 2.64 L (4.30-5.90) m/uL Hgb 8.6 L (13.0-17.5) gm/dL Hct 25.7 L (39.0-53.0) % Sodium 136 L (137-145) mmol/L Glucose 102 H (74-99) mg/dL POC Glucose (mg/dL) (75-99) mg/dL
--- NOTE | 2021-04-27 10:29 | P.ARTDOP ---
Arterial Doppler Duplex imaging radial arteries bilaterally Reason for study: Preop CABG Findings: Right radial is 4.2 x 3.2 mm distally, 4.0 x 4.1 mm mid, and 3.9 x 3.9 mm proximally. Left radial is 2.8 x 3.3 mm distally, 2.9 x 3.0 mm mid, and 3.5 x 3.6 mm proximally. There is a right to left gradient below the brachial of 36 mmHg. With radial compression using digital plethysmography we see no significant pressure changes. Impression: Radial arteries bilaterally meet criterion for use as conduit.
--- NOTE | 2021-04-27 10:59 | P.ARTDOP ---
Arterial Doppler LOWER EXTREMITY ARTERIAL DOPPLER: DATE OF SERVICE: 04/20/2021 Reason for study: Preop CABG. Doppler waveforms: Multiphasic bilaterally throughout. Somewhat blunted waveforms on the left.. Pulse volume recording: []. Pressure gradients: None of significance. Ankle-brachial indices: Greater than 1 bilaterally. Toe brachial indices: 0.83 on the right, 0.62 on the left Impression: Normal study. Suspect mild vasospastic phenomenon on the left..
--- NOTE | 2021-04-27 11:19 | P.VSCSTY ---
Greater Saphenous Vein Mapping This is bilateral lower extremity greater saphenous vein mapping. Date of service: 04/20/2021 Vein quality and ultrasound appearance: We see no intraluminal thrombus or obvious wall changes. Vein size groin right : 6 x 7 groin left: 4 x 5 High thigh right: 5 x 5 high thigh left: 3 x 4 Mid thigh right: 3 x 4 mid thigh left: 3 x 3 Above-knee right: 3 x 6 above-knee left: 2 x 2 Below knee right: 3 x 5 below-knee left: 4 x 3 Mid calf right: 3 x 4 mid calf left: 2 x 3 Ankle right: 3 x 4 ankle left: 3 x 4 Impression: Usable bilateral greater saphenous vein. Right leg is somewhat more consistent in size than the left..
--- NOTE | 2021-04-27 15:24 | P.PN ---
Subjective Progress Note Date: 04/26/21 This is a pleasant 65-year-old white male patient of my partner. He has known peripheral artery disease, hypertension, hyperlipidemia. He was seen by Dr. Diane for intermittent chest pain. He was brought in the hospital for elective cardiac catheterization by Dr. Diane. He was found to have extremely calcified right coronary arteries. There is significant disease found. A coronary bypass graft was recommended. Dr. Sanchez was consultation. The patient underwent 5. Vessel bypass 04/22/2021. Patient is now resting comfortably in the intensive care unit. He is been extubated last night. He indicates his pain is controlled. His is at bedside. He denies any chest pain or shortness of breath at this time. He is not a diabetic. We've been counseled for insulin management due to hype rglycemia post procedure. 04/24/2021: Patient remains in the intensive care unit today. He is postop day #2 for a five-vessel coronary bypass graft. He is resting comfortably. His pain is controlled. He continues have a Montesinos to gravity and a chest tube in place 3. He indicates pain is controlled. He denies any shortness of breath, nausea, or vomiting at this time. Vital she'll control heart rate. He is afebrile. Blood pressure is controlled. Pulse oximetry on room air is 94%. He has normal saline at 20 mL an hour. Intake is 168 and also shift with 513 out for a net of -353 mL. Labs show a DVT scan 8.7, hemoglobin is 8.2 hematocrit 24.5 platelets are 96. There is no shift. Chemistry show hyponatremia 132. Glucose of before lunch today was 86. He is currently on NovoLog scale. No other medications per surgical critical care team. Critical care and thoracic surgery notes reviewed today. 04/26/2021 significant clinical improvement. Denies chest pain, palpitations or increasing shortness of breath. Chest x-ray reportedly mild residual pulmonary vascular congestion, improving trace effusions, improving retrocardiac atelectasis .Maintaining O2 sats in the high 90s on room air. Pain controlled. Ambulating with physical therapy, tolerating exertion well. Diet intake 50- 100%. Blood sugars controlled. Positive bowel movement. No nausea or vomiting. No diarrhea. Afebrile, T-max 99.9, normal WBC. Hemoglobin 8.6, platelets 156. Objective - Vital Signs Vital signs: Vital Signs Temp 98.1 F 04/26/21 11:26 Pulse 81 04/26/21 11:26 Resp 18 04/26/21 11:26 BP 129/73 04/26/21 11:26 Pulse Ox 97 04/26/21 11:26 Intake & Output 04/25/21 04/26/21 04/26/21 18:59 06:59 18:59 Intake Total 780 Output Total 975 400 575 Balance -195 -400 -575 Weight 87.4 kg Intake: Oral 780 Output: Chest Tube Drainage 50 Chest Tube Left 50 Urine 925 400 575 Other: Voiding Method Urinal Urinal Urinal # Voids 1 # Bowel Movements 1 ABP, PAP, CO, CI - Last Documented Arterial Blood Pressure 136/57 Pulmonary Artery Pressure 24/9 Cardiac Output 5 Cardiac Index 2.5 - Exam - Exam GENERAL EXAM: Alert and oriented X3, NAD NECK: No masses, no JVD, no thyroid enlargement, no adenopathy. CHEST: No chest wall deformity. Symmetrical expansion. LUNGS: Breath auscultation bilaterally CTA CVS: Regular rate and rhythm, normal S1 and S2, no gallops, no murmurs, no rubs ABDOMEN: Soft, nontender. No hepatosplenomegaly, normal bowel sounds, no guarding or rigidity. EXTREMITIES: No clubbing, no edema, no cyanosis, 2+ pulses and upper and lower extremities. Lateral lower extremities have ESAU hose on MUSCULOSKELETAL: Muscle strength and tone normal. CENTRAL NERVOUS SYSTEM: No focal deficits, tone is normal in all 4 extremities. PSYCHIATRIC: Appropriate affect. Intact judgment and insight. - Labs CBC & Chem 7: 04/26/21 07:13 04/26/21 07:13 Labs: Abnormal Lab Results - Last 24 Hours (Table) 04/25/21 04/25/21 04/26/21 Range/Units 17:04 21:06 06:18 RBC (4.30-5.90) m/uL Hgb (13.0-17.5) gm/dL Hct (39.0-53.0) % Sodium (137-145) mmol/L Glucose (74-99) mg/dL POC Glucose (mg/dL) 133 H 122 H 101 H (75-99) mg/dL 04/26/21 04/26/21 Range/Units 07:13 07:13 RBC 2.64 L (4.30-5.90) m/uL Hgb 8.6 L (13.0-17.5) gm/dL Hct 25.7 L (39.0-53.0) % Sodium 136 L (137-145) mmol/L Glucose 102 H (74-99) mg/dL POC Glucose (mg/dL) (75-99) mg/dL Assessment and Plan Assessment: (1) S/P five vessel coronary artery bypass Current Visit: Yes Status: Acute Code(s): Z95.1 - PRESENCE OF AORTOCORONARY BYPASS GRAFT SNOMED Code(s): 424760639 (2) CAD (coronary artery disease) Current Visit: Yes Status: Acute Code(s): I25.10 - ATHSCL HEART DISEASE OF [place] CORONARY ARTERY W/O ANG PCTRS SNOMED Code(s): 51719094 (3) Stenosis of right carotid artery Current Visit: Yes Status: Acute Code(s): I65.21 - OCCLUSION AND STENOSIS OF RIGHT CAROTID ARTERY SNOMED Code(s): 662810256151556 (4) PAD (peripheral artery disease) Current Visit: Yes Status: Acute Code(s): I73.9 - PERIPHERAL VASCULAR DISEASE, UNSPECIFIED SNOMED Code(s): 338600517 (5) Essential (primary) hypertension Current Visit: Yes Status: Acute Code(s): I10 - ESSENTIAL (PRIMARY) HYPERTENSION SNOMED Code(s): 05017255 (6) Mixed hyperlipidemia Current Visit: Yes Status: Acute Code(s): E78.2 - MIXED HYPERLIPIDEMIA SNOMED Code(s): 399693833 (7) Hyperglycemia Current Visit: Yes Status: Acute Code(s): R73.9 - HYPERGLYCEMIA, UNSPECIFIED SNOMED Code(s): 04246610 (8) Acute blood loss anemia, expected outcome of CABG Current Visit: Yes Status: Acute Code(s): D62 - ACUTE POSTHEMORRHAGIC ANEMIA SNOMED Code(s): 339372216 (9) Thrombocytopenia due to blood loss Current Visit: Yes Status: Acute Code(s): D69.59 - OTHER SECONDARY THROMBOCYTOPENIA SNOMED Code(s): 48820473 PLan: Continue on current medication regime ,monitoring and symptomatic treatment. Discharge planning in progress today as per CTS. maintain aggressive pulmonary toileting. Follow-up with PCP in one week. The impression and plan of care has been dictated as directed. : I performed a history and examination of this patient, discussed the same with the dictator. I agree with the dictator's note ,documented as a scribe. Any additional findings or plans will be noted.
== END 2021-04-26 13:26 | disposition home health service (06) | DRG 234 ==
LOC: CATHCVL 06:18 → 3SCARD 08:00 → 2SICU 04-22 06:33 → CATHCVL 04-22 07:36 → 2SICU 04-22 14:22 → 3SCARD 04-25 10:40
PROVIDERS: ADMIT Surgery; ATTEND Surgery
PROC: B2111ZZ Fluoroscopy of Multiple Coronary Arteries using Low Osmolar Contrast (ICD-10-PCS; 2021-04-20)
PROC: 4A023N7 Measurement of Cardiac Sampling and Pressure, Left Heart, Percutaneous Approach (ICD-10-PCS; principal; 2021-04-20 07:30)
PROC: 06BQ4ZZ Excision of Left Saphenous Vein, Percutaneous Endoscopic Approach (ICD-10-PCS; 2021-04-22)
PROC: 06BP4ZZ Excision of Right Saphenous Vein, Percutaneous Endoscopic Approach (ICD-10-PCS; 2021-04-22)
PROC: 03BC4ZZ Excision of Left Radial Artery, Percutaneous Endoscopic Approach (ICD-10-PCS; 2021-04-22)
PROC: 02L70ZK Occlusion of Left Atrial Appendage, Open Approach (ICD-10-PCS; 2021-04-22)
PROC: 5A1221Z Performance of Cardiac Output, Continuous (ICD-10-PCS; 2021-04-22)
PROC: 3E03317 Introduction of Other Thrombolytic into Peripheral Vein, Percutaneous Approach (ICD-10-PCS; 2021-04-22)
PROC: B24BZZ4 Ultrasonography of Heart with Aorta, Transesophageal (ICD-10-PCS; 2021-04-22)
PROC: 30233R1 Transfusion of Nonautologous Platelets into Peripheral Vein, Percutaneous Approach (ICD-10-PCS; 2021-04-22)
PROC: 30233N1 Transfusion of Nonautologous Red Blood Cells into Peripheral Vein, Percutaneous Approach (ICD-10-PCS; 2021-04-22)
PROC: 02100AW Bypass Coronary Artery, One Artery from Aorta with Autologous Arterial Tissue, Open Approach (ICD-10-PCS; 2021-04-22 08:00)
PROC: 021209W Bypass Coronary Artery, Three Arteries from Aorta with Autologous Venous Tissue, Open Approach (ICD-10-PCS; 2021-04-22 08:00)
PROC: 02100A9 Bypass Coronary Artery, One Artery from Left Internal Mammary with Autologous Arterial Tissue, Open Approach (ICD-10-PCS; 2021-04-22 08:00)
DX: I25.110 Atherosclerotic heart disease of native coronary artery with unstable angina pectoris (principal); D62 Acute posthemorrhagic anemia; J98.11 Atelectasis; J90 Pleural effusion, not elsewhere classified; E87.1 Hypo-osmolality and hyponatremia; I25.84 Coronary atherosclerosis due to calcified coronary lesion; Z96.651 Presence of right artificial knee joint; I73.9 Peripheral vascular disease, unspecified; D69.59 Other secondary thrombocytopenia; E78.2 Mixed hyperlipidemia; I10 Essential (primary) hypertension; I65.21 Occlusion and stenosis of right carotid artery; I49.3 Ventricular premature depolarization; R73.9 Hyperglycemia, unspecified; Z79.899 Other long term (current) drug therapy; Z83.3 Family history of diabetes mellitus; Z82.49 Family history of ischemic heart disease and other diseases of the circulatory system; Z82.0 Family history of epilepsy and other diseases of the nervous system; Z79.82 Long term (current) use of aspirin
CPT/HCPCS: 71045; 71046; 71250; 76937; 80048; 80053; 80061; 80074; 81003; 82330; 82805; 83036; 83735; 84443; 85025; 85027; 85520; 85610; 85730; 86850; 86891; 86900; 86901; 86920; 87070; 93306; 93454; 93880; 93922; 93923; 93930; 93970; 94002; 94150; 94640

== ENCOUNTER 2023-08-20 07:02 | Day surgery (SDC) | payer MEDICARE ==
[2023-08-15 16:06] VITALS: BMI 26.6
[~2023-08-20 07:02] MED LIST changes: +ALPRAZolam 0.25 MG TAB PO PRN; +ALPRAZolam 0.5 MG TAB PO PRN; +ASPIRIN 325 MG TAB PO STA; +HEPARIN SODIUM,PORCINE (1 ML) 2,500 UNIT in SODIUM CHLORIDE 0.9% 250 ML IRRIGATION PRN; +HEPARIN SODIUM,PORCINE 10,000 UNIT in SODIUM CHLORIDE 0.9% 1,000 ML IRRIGATION PRN; -LACTATED RINGERS 1,000 ML IV SCH; -LIDOCAINE 1% 20 ML VIAL (10MG/ML) FOR IV START INTRADERMA PRN; -LIDOCAINE 1% INJ 10MG/ML (20 ML MDV) ONE; +NITROGLYCERIN SL TABS 0.4 MG TAB SUBLINGUAL PRN; -PROPOFOL 10 MG/ML 20 ML VIAL IV ONE; +SODIUM CHLORIDE 0.9% 1,000 ML in EMPTY BAG 1 BAG IV SCH
[2023-08-20] MEDS: SODIUM CHLORIDE 0.9% 1,000 ML IV ONE (07:36)
[2023-08-20 08:16] VITALS: RESP 16; TEMP 97.9
[2023-08-20] MEDS ORDERED: HEPARIN SODIUM 1,000 UN/ML (10ML VL) ONE (08:29)
[2023-08-20] MEDS ORDERED: VERAPAMIL 2.5 MG/ML 2 ML AMP ONE (08:29)
[2023-08-20] MEDS ORDERED: LIDOCAINE 1% INJ 10MG/ML (20 ML MDV) ONE (08:29)
[2023-08-20] MEDS: MIDAZOLAM 2 MG/2 ML VIAL IVP ONE ×2 (09:09→09:28)
[2023-08-20] MEDS: LIDOCAINE 1% INJ 10MG/ML (20 ML MDV) SQ ONE (09:09)
[2023-08-20] MEDS: IOPAMIDOL-370 100ML BTL INJ ONE ×2 (09:31→09:46)
[2023-08-20] MEDS ORDERED: RX INFO: IV CONTRAST WAS GIVEN 1 EACH MISC MISCELLANE PRN (09:52)
--- NOTE | 2023-08-20 09:59 | P.PCN ---
Date of Procedure: 08/20/23 Operative Findings: CARDIAC CATHETERIZATION PERFORMING PHYSICIAN: Yosi uL MD, RPVI PROCEDURE PERFORMED: 1. Selective right and left coronary angiogram 2. FERRARA to LAD and diagonal angiogram, radial artery bypass to ramus intermedius angiogram, SVG to PDA and PLV angiogram. 3. Ultrasound-guided access of the right common femoral artery selective right common femoral artery angiogram 4. Gradient measurement across the right iliac INDICATION: Symptomatic 68-year-old gentleman with CAD status post CABG and abnormal myocardial perfusion imaging stress COMPLICATION: None APPROACH: Right common femoral artery LEVEL OF SEDATION: Moderate with sedation in length of 36 minutes PROCEDURE DESCRIPTION: After obtaining an informed consent, the patient was brought to cardiac woodworking shop laborer. Local anesthesia was performed using lidocaine subcutaneously. The right common femoral artery was cannulated using Seldinger technique, the guidewire passed easily, following that we advanced a 6 Tongan sheath dilator assembly, the wire and dilator were removed and sheath was flushed. Selective right and left coronary angiogram using a 6-Tongan JR4 and JL catheters. The to LAD angiogram and SVG to RCA angiogram performed using JR4 catheter. The radial artery bypass to ramus intermedius angiogram was performed using LCB catheter. Because there was extreme resistance going from the femoral to the iliac I did to check the gradient across the right iliac bone that came to be nonischemic/no significant The procedure was completed there was no complication. SELECTIVE CORONARY ANGIOGRAM: The right coronary artery: Large-caliber vessel and a dominant vessel with critical diffuse disease Left main: Severely diseased The left circumflex: Large-caliber vessel with critical disease The left anterior descending artery: Has severe disease in the proximal to mid Coronary bypasses angiogram The FERRARA to LAD and diagonal is patent The radial artery bypass to ramus intermedius is patent The SVG to PDA and PLV of RCA are patent CONCLUSION: 1. Severe triple-vessel coronary artery disease 2. Patent FERRARA to LAD and diagonal and patent radial artery bypass to ramus intermedius and patent SVG to PDA and PLV 3. Severe disease involving a medium size unprotected left circumflex coronary artery with very tortuous proximal portion and calcified proximal portion POSTPROCEDURE MANAGEMENT: Consider medical treatment at this point
[2023-08-20] MEDS ORDERED: SODIUM CHLORIDE 0.9% 1,000 ML IV SCH (10:00)
[2023-08-20 12:06] VITALS: PULSE 64
[2023-08-20 15:24] VITALS: BP 139/67
== END 2023-08-20 12:50 | disposition home or self-care (01) ==
LOC: CATHCVL 07:02
PROVIDERS: ATTEND Internal Medicine Interventional Cardiology
DX: I25.10 Atherosclerotic heart disease of native coronary artery without angina pectoris (principal); I10 Essential (primary) hypertension; I73.9 Peripheral vascular disease, unspecified; I38 Endocarditis, valve unspecified; I65.23 Occlusion and stenosis of bilateral carotid arteries; Z79.899 Other long term (current) drug therapy; E78.5 Hyperlipidemia, unspecified; F17.210 Nicotine dependence, cigarettes, uncomplicated; Z79.82 Long term (current) use of aspirin; Z95.1 Presence of aortocoronary bypass graft
CPT/HCPCS: 93455; 76937; J2250; J2001; Q9967

== ENCOUNTER 2023-11-01 07:37 | Day surgery (SDC) | payer MEDICARE ==
[~2023-11-01 07:37] MED LIST changes: -ALPRAZolam 0.25 MG TAB PO PRN; -ALPRAZolam 0.5 MG TAB PO PRN; -ASPIRIN 325 MG TAB PO STA; -HEPARIN SODIUM,PORCINE (1 ML) 2,500 UNIT in SODIUM CHLORIDE 0.9% 250 ML IRRIGATION PRN; -HEPARIN SODIUM,PORCINE 10,000 UNIT in SODIUM CHLORIDE 0.9% 1,000 ML IRRIGATION PRN; +LIDOCAINE 1% (10MG/ML) FOR IV START INTRADERMA PRN; -NITROGLYCERIN SL TABS 0.4 MG TAB SUBLINGUAL PRN; -SODIUM CHLORIDE 0.9% 1,000 ML in EMPTY BAG 1 BAG IV SCH
[2023-11-01] MEDS: IV FLUID CONTINUATION 1,000 ML IV ONE ×2 (07:49→08:12)
[2023-11-01 07:57] VITALS: TEMP 98
[2023-11-01] MEDS: LACTATED RINGERS 1,000 ML IV SCH (07:57)
[2023-11-01] MEDS ORDERED: LIDOCAINE 2% (PF) 20 MG/ML 5 ML VIAL ONE (08:13)
[2023-11-01] MEDS ORDERED: PROPOFOL 10 MG/ML 20 ML VIAL IV ONE (08:13)
--- NOTE | 2023-11-01 08:16 | P.GSHP ---
History of Present Illness H&P Date: 11/01/23 Chief Complaint: Anemia, history of diverticulitis This is a 68-year-old male who has anemia and history of diverticulitis. Patient presents today for colonoscopy patient's last colonoscopy was approximately 6 years ago. Patient had a barium enema performed that time which shows evidence of significant diverticular disease. Past Medical History Past Medical History: Chest Pain / Angina, Hyperlipidemia, Hypertension Additional Past Medical History / Comment(s): RECENT CHEST PAIN WITH EXERCISE History of Any Multi-Drug Resistant Organisms: MRSA Date of last positivie culture/infection: 2013 MDRO Source:: LT ANKLE Past Surgical History: Coronary Bypass/CABG, Heart Catheterization, Joint Replacement, Orthopedic Surgery Additional Past Surgical History / Comment(s): LT achilles tendon repair 09/05/2013, right knee replacement apr 2012, right wrist--excess bone removed 5 years ago, RT ROTATOR CUFF REPAIR APR 2014., COLONOSOCPY, LT ROTATOR CUFF REPAIR, LT total knee,CABG 5-vessel 2021 Past Anesthesia/Blood Transfusion Reactions: No Reported Reaction Additional Past Anesthesia/Blood Transfusion Reaction / Comment(s): no hx blood transfusion Smoking Status: Never smoker - Past Family History Mother Family Medical History: Diabetes Mellitus Additional Family Medical History / Comment(s): Pancreatitis Father Family Medical History: No Reported History Additional Family Medical History / Comment(s): PARKINSONS Medications and Allergies Home Medications Medication Instructions Recorded Confirmed Type Rosuvastatin [Crestor] 40 mg PO DAILY 04/19/21 10/29/23 History Acetaminophen Tab [Tylenol] 650 mg PO Q4HR PRN tab 04/26/21 10/29/23 Rx Clopidogrel [Plavix] 75 mg PO DAILY #30 tab 04/26/21 10/29/23 Rx Metoprolol Tartrate [Lopressor] 25 mg PO BID #60 tab 04/26/21 10/29/23 Rx amLODIPine [Norvasc] 5 mg PO DAILY 08/15/23 10/29/23 History Allergies Allergy/AdvReac Type Severity Reaction Status Date / Time No Known Allergies Allergy Verified 10/29/23 12:34 Surgical - Exam Vital Signs Temp Pulse Resp BP Pulse Ox 98 F 57 L 18 163/76 97 11/01/23 07:56 11/01/23 07:56 11/01/23 07:56 11/01/23 07:56 11/01/23 07:56 - General well developed, well nourished, no distress - Eyes PERRL - ENT normal pinna - Neck no masses - Respiratory normal expansion - Cardiovascular Rhythm: regular - Abdomen Abdomen: soft, non tender Assessment and Plan Assessment: Anemia, history of diverticulitis. Will perform colonoscopy
--- NOTE | 2023-11-01 08:34 | P.OP ---
Date of Procedure: 11/01/23 Preoperative Diagnosis: Anemia History of diverticulitis Postoperative Diagnosis: Severe diverticulosis of the sigmoid colon Procedure(s) Performed: Colonoscopy Anesthesia: MAC Surgeon: Gage Barry Pathology: none sent Condition: stable Disposition: PACU Description of Procedure: Patient was placed on the endoscopy table in the lateral position. He received IV sedation. Digital rectal exam was performed. This revealed no abnormalities. Flexible colonoscope was then placed patient anus and passed throughout the colon. The colonoscope W. Mcclure. The transverse colon secondary to severe diverticulitis of the left and sigmoid colon. The colon was quite scarred. The scope was withdrawn. The visualized transverse colon appeared normal. In the descending and sigmoid colon there is extensive diverticular changes. The scope was brought back to the rectum this appeared normal. Scope withdrawn the patient. Patient be scheduled for outpatient CT scan of the abdomen.
[2023-11-01 08:56] VITALS: BP 144/80; PULSE 51; RESP 18
== END 2023-11-01 09:16 | disposition home or self-care (01) ==
LOC: ORWHC2ENDO 07:37
PROVIDERS: ATTEND Surgery
DX: K57.92 Diverticulitis of intestine, part unspecified, without perforation or abscess without bleeding (principal); E78.5 Hyperlipidemia, unspecified; I10 Essential (primary) hypertension; I25.10 Atherosclerotic heart disease of native coronary artery without angina pectoris; I73.9 Peripheral vascular disease, unspecified; Z95.1 Presence of aortocoronary bypass graft; Z83.3 Family history of diabetes mellitus; Z79.02 Long term (current) use of antithrombotics/antiplatelets; Z79.899 Other long term (current) drug therapy; Z83.79 Family history of other diseases of the digestive system
CPT/HCPCS: J2704; J2001; G0121; 45378

== ENCOUNTER → 2024-03-21 | Outpatient (CLI) | payer MEDICARE ==
--- NOTE | 2024-03-21 14:02 | CT ---
EXAMINATION TYPE: CT iac wo con CT DLP: 142.7 mGycm, Automated exposure control for dose reduction was used. DATE OF EXAM: 03/21/2024 1:50 PM INDICATION: Patient age:Male; 68 years old; Reason for study: H93.19 TINNITUS, UNSPECIFIED EAR; PHH. COMPARISON: None. TECHNIQUE: Multiple thin axial images were obtained through the temporal bones and internal auditory canals. Additional coronal reformatted images were obtained. No IV contrast was utilized. FINDINGS: Right Temporal Bone: External Ear: The external auditory canal is unremarkable, The tympanic membrane is present and unrem arkable. Middle Ear: The ossicles demonstrate a normal appearance. Prussak's space is clear and the scutum i s intact. There is no evidence of osseous erosion and the tegmen tympani is intact. Inner Ear: Cochlea, vestibule and semi circular canals are unremarkable. No evidence of carotid franklin l dehiscence. Two and a half turns of the cochlea are identified. The vestibular aqueduct is not enl arged. Mastoid Air Cells: The mastoid air cells are clear. The tegmen mastoideum is intact. The aditus ad an trum is clear. Internal Auditory Canal: The internal auditory canal is unremarkable. Left Temporal Bone: External Ear: The external auditory canal is unremarkable, The tympanic membrane is present and unrem arkable. Middle Ear: The ossicles demonstrate a normal appearance. Prussak's space is clear and the scutum i s intact. There is no evidence of osseous erosion and the tegmen tympani is intact. Inner Ear: Cochlea, vestibule and semi circular canals are unremarkable. No evidence of carotid franklin l dehiscence. Two and a half turns of the cochlea are identified. The vestibular aqueduct is not enl arged. Mastoid Air Cells: The mastoid air cells are clear. The tegmen mastoideum is intact. The aditus ad an trum is clear. Internal Auditory Canal: The internal auditory canal is unremarkable. Synechiae with minimal mucosal thickening in the inferior left maxillary sinus. Septal deviation to t he right. Remaining visualized paranasal sinuses are clear. Atherosclerotic calcification of the visu alized intracranial vasculature. IMPRESSION: No CT evidence for significant internal auditory canal abnormality. [facility], , 03/21/2024 2:00 PM
== END | disposition home or self-care (01) ==
LOC: RADCTMAIN 12:11
PROVIDERS: ATTEND Otolaryngology
DX: H93.19 Tinnitus, unspecified ear (principal)
CPT/HCPCS: 70480